=== PATIENT | male | born 1975 | race Caucasian/White ===

== ENCOUNTER 2017-03-23 19:04 | Inpatient (IN) | payer BC, MEDICARE, MEDICAID ==
[~2017-03-23] VITALS: Ht 162.6 cm; Wt 62.4 kg
[~2017-03-23 19:04] MED LIST: ACET-2178 PO; CLON0.5T4 PO; DIASTAT PO; GABA-529 PO; LACO100T2 PO; ONFI PO; ZONISAMIDE
[2017-03-23] MEDS ORDERED: ACETAMINOPHEN 650MG SUPP PR STA (19:45)
[2017-03-23] MEDS ORDERED: LEVETIRACETAM 500MG PREMIX 100 ML IV ONE ×2 (19:45→22:00)
[2017-03-23] MEDS ORDERED: VANCOMYCIN 1 G PREMIX 200 ML IV ONE (19:45)
[2017-03-23] MEDS ORDERED: SODIUM CHLORIDE 0.9% 1000ML BAG (SEPSIS BOLUS) IV ONE (19:45)
[2017-03-23] MEDS ORDERED: LEVOFLOXACIN 750MG PREMIX 150 ML IV ONE (19:45)
[2017-03-23 20:16] LABS: BG BASE EXCESS -4.8 mmol/L (-2.0-2.0); BG DEOXYHEMOGLOBIN 1.8 % (0.0-5.0); BG FRACTION INSPIRED OXYGEN 28; BG HCO3 ACT 20.8 mmol/L (22.0-26.0); BG METHEMOGLOBIN 0.5 % (0.0-1.5); BG OXYGEN SATURATION 98.2 % (92.0-98.5); BG OXYHEMOGLOBIN 96.7 % (94.0-97.0); BG PCO2 40.3 mmHg (35.0-45.0); BG PO2 106.6 mmHg (75.0-100.0); BG SAMPLE SITE LEFT RADIAL; BG TOTAL HEMOGLOBIN 15.9 g/dL (12.0-18.0); BG VENT MODE NASAL CANNULA
[2017-03-23 20:23] LABS: HEMATOCRIT. 45.4 % (42.0-52.0); HEMOGLOBIN. 15.1 g/dL (14.0-18.0); MEAN CORPUSCULAR HEMOGLOBIN 28.1 pg (28.0-32.0); MEAN CORPUSCULAR VOLUME 84.6 fL (80.0-94.0); MEAN PLATELET VOLUME 7.7 fl (7.4-10.4); PLATELET 354 x1000/uL (130-400); RED BLOOD CELL COUNT 5.37 mill/uL (4.7-6.1); RED CELL DISTRIBUTION WIDTH 14.1 % (11.6-14.6)
[2017-03-23 20:35] LABS: CARBON DIOXIDE 23 mEq/L (21-32); CHLORIDE 109 mEq/L (98-107); CREATINE KINASE 150 IU/L (39-308); TROPONIN I 0.06 ng/mL (0.00-0.04)
[2017-03-23 20:40] LABS: PLATELET ESTIMATE NORMAL
[2017-03-23] MEDS ORDERED: LORAZEPAM 2MG/ML CPJ IV ONE ×2 (20:45→23:15)
[2017-03-23 20:47] LABS: CARBAMAZEPINE < 0.5 ug/mL (4-12); PHENOBARBITAL < 2.1 ug/mL (15.0-40.0); VALPROIC ACID < 3.0 ug/mL (50-100)
[2017-03-23 20:57] LABS: AMMONIA 61 uMol/L (<32)
[2017-03-23 21:29] LABS: CLARITY URINE CLOUDY (CLEAR); COLOR URINE ORANGE (YELLOW); GLUCOSE URINE NEGATIVE (NEGATIVE); KETONES URINE NEGATIVE (NEGATIVE); LEUKOCYTE ESTERASE URINE 2+ (NEGATIVE); NITRITE URINE POSITIVE (NEGATIVE); OCCULT BLOOD URINE NEGATIVE (NEGATIVE); PROTEIN URINE 1+ (NEGATIVE); SPECIFIC GRAVITY URINE 1.033 (1.005-1.030)
[2017-03-24] VITALS (108 sets, daily range): BP systolic 57–137; BP diastolic 31–96
[2017-03-24] MEDS ORDERED: LORAZEPAM 2MG/ML CPJ IV PRN (01:15)
[2017-03-24] MEDS: SODIUM CHLORIDE 0.45% 1,000 ML IV SCH ×2 (01:18→13:17)
[2017-03-24] MEDS ORDERED: KEPP500 PO (01:23)
[2017-03-24] MEDS ORDERED: CALCIUM GLUCONATE 100MG/ML 10ML VIAL IV NR (01:30)
[2017-03-24] MEDS ORDERED: CEFTRIAXONE 1 G PREMIX 50 ML IV SCH (02:00)
[2017-03-24] MEDS ORDERED: NOREPINEPHRINE 8 MG in DEXT 5% WATER 242 ML IV PRN (02:00)
[2017-03-24 05:42] LABS: HEMATOCRIT 40.1 % (42.0-52.0); MEAN CORPUSCULAR HEMOGLOBIN 27.8 pg (28.0-32.0); MEAN CORPUSCULAR VOLUME 85.5 fL (80.0-94.0); PLATELET 303 x1000/uL (130-400); RED BLOOD CELL COUNT 4.69 mill/uL (4.7-6.1); RED CELL DISTRIBUTION WIDTH 14.2 % (11.6-14.6)
[2017-03-24] MEDS: LORAZEPAM 2MG/ML CPJ IV PRN ×2 (05:58→08:06)
[2017-03-24] MEDS ORDERED: VALPROATE SODIUM 500 MG in SODIUM CHLORIDE 0.9% 100 ML IV NR (06:30)
[2017-03-24 07:34] LABS: CARBON DIOXIDE 18 mEq/L (21-32); CHLORIDE 111 mEq/L (98-107)
[2017-03-24] MEDS: ACETAMINOPHEN 650MG SUPP PR PRN ×3 (08:23→11:48)
[2017-03-24] MEDS ORDERED: ACETAMINOPHEN 650MG SUPP ONE (08:52)
[2017-03-24] MEDS ORDERED: FAMOTIDINE 20MG/2ML VIAL IV SCH (09:00)
[2017-03-24] MEDS ORDERED: PANTOPRAZOLE SODIUM 40 MG/VIAL IV SCH (09:00)
[2017-03-24] MEDS ORDERED: LEVOFLOXACIN 500MG PREMIX 100 ML IV ONE (09:00)
[2017-03-24] MEDS ORDERED: LEVETIRACETAM 500MG PREMIX 100 ML IV SCH (09:00)
[2017-03-24] MEDS ORDERED: ACETAMINOPHEN 650MG SUPP PR NR (10:54)
[2017-03-24] MEDS ORDERED: ACETAMINOPHEN 325MG TABLET PO PRN (15:45)
[2017-03-24] MEDS: LEVOFLOXACIN 250MG PREMIX 50 ML IV SCH (20:35)
[2017-03-24] MEDS ORDERED: LEVETIRACETAM 500MG in SODIUM CHLORIDE 0.9% 100ML IV SCH (21:00)
[2017-03-24] MEDS: FAMOTIDINE 20MG/2ML VIAL IV SCH (21:45)
[2017-03-25] VITALS (40 sets, daily range): BP systolic 91–122; BP diastolic 37–74
[2017-03-25] MEDS: CEFTRIAXONE 1 G PREMIX 50 ML IV SCH (02:52)
[2017-03-25 05:13] LABS: CARBON DIOXIDE 24 mEq/L (21-32); CHLORIDE 113 mEq/L (98-107)
[2017-03-25] MEDS: SODIUM CHLORIDE 0.45% 1,000 ML IV SCH ×2 (05:49→19:26)
[2017-03-25 06:25] LABS: BASOPHILS % 0.3 % (0.0-2.0); EOSINOPHILS % 2.2 % (0.0-5.0); HEMATOCRIT. 33.5 % (42.0-52.0); HEMOGLOBIN. 11.1 g/dL (14.0-18.0); LYMPHOCYTES % 12.3 % (20.0-50.0); MEAN CORPUSCULAR HEMOGLOBIN 28.1 pg (28.0-32.0); MEAN CORPUSCULAR VOLUME 84.9 fL (80.0-94.0); MEAN PLATELET VOLUME 7.4 fl (7.4-10.4); MONOCYTES % 8.5 % (2.0-8.0); NEUTROPHILS % 76.7 % (40.0-76.0); PLATELET 228 x1000/uL (130-400); RED BLOOD CELL COUNT 3.94 mill/uL (4.7-6.1); RED CELL DISTRIBUTION WIDTH 14.2 % (11.6-14.6)
[2017-03-25] MEDS: LEVETIRACETAM 500MG TABLET PO SCH ×2 (09:39→20:09)
[2017-03-25] MEDS: FAMOTIDINE 20MG/2ML VIAL IV SCH ×2 (09:39→20:15)
[2017-03-25] MEDS ORDERED: LEVETIRACETAM 500 MG in SODIUM CHLORIDE 0.9% 100 ML IV NR (12:00)
[2017-03-25] MEDS: POTASSIUM CHLORIDE 20MEQ/PACKET PO NR ×3 (18:45→20:08)
[2017-03-25] MEDS: LEVOFLOXACIN 250MG PREMIX 50 ML IV SCH (20:15)
[2017-03-26] VITALS (35 sets, daily range): BP systolic 91–134; BP diastolic 52–76
[2017-03-26] MEDS: CEFTRIAXONE 1 G PREMIX 50 ML IV SCH (02:09)
[2017-03-26 06:08] LABS: BASOPHILS % 0.5 % (0.0-2.0); EOSINOPHILS % 2.3 % (0.0-5.0); HEMATOCRIT. 34.4 % (42.0-52.0); HEMOGLOBIN. 11.4 g/dL (14.0-18.0); LYMPHOCYTES % 20.4 % (20.0-50.0); MEAN CORPUSCULAR HEMOGLOBIN 28.2 pg (28.0-32.0); MONOCYTES % 7.9 % (2.0-8.0); NEUTROPHILS % 68.9 % (40.0-76.0); PLATELET 234 x1000/uL (130-400); RED BLOOD CELL COUNT 4.04 mill/uL (4.7-6.1)
[2017-03-26 06:26] LABS: CARBON DIOXIDE 25 mEq/L (21-32); CHLORIDE 112 mEq/L (98-107)
[2017-03-26] MEDS: LEVETIRACETAM 500MG TABLET PO SCH ×2 (08:15→20:20)
[2017-03-26] MEDS: FAMOTIDINE 20MG/2ML VIAL IV SCH ×2 (08:15→20:20)
[2017-03-26] MEDS: SODIUM CHLORIDE 0.45% 1,000 ML IV SCH (10:12)
[2017-03-26] MEDS ORDERED: DEXT 5%/0.45% NACL 1000ML 1,000 ML IV SCH (15:45)
[2017-03-26] MEDS ORDERED: THIAMINE HCL 100 MG in SODIUM CHLORIDE 0.9% 49 ML IV NR (16:00)
[2017-03-26] MEDS: ONFI 10 MG PO SCH (16:58)
[2017-03-26] MEDS ORDERED: LEVOFLOXACIN 500MG PREMIX 100 ML IV SCH (20:00)
[2017-03-27] VITALS (9 sets, daily range): BP systolic 107–124; BP diastolic 52–117
[2017-03-27 06:50] LABS: BASOPHILS % 0.6 % (0.0-2.0); EOSINOPHILS % 2.5 % (0.0-5.0); HEMATOCRIT. 37.6 % (42.0-52.0); HEMOGLOBIN. 12.4 g/dL (14.0-18.0); LYMPHOCYTES % 21.5 % (20.0-50.0); MEAN CORPUSCULAR HEMOGLOBIN 27.8 pg (28.0-32.0); MEAN CORPUSCULAR VOLUME 84.1 fL (80.0-94.0); MEAN PLATELET VOLUME 7.8 fl (7.4-10.4); MONOCYTES % 7.1 % (2.0-8.0); NEUTROPHILS % 68.3 % (40.0-76.0); PLATELET 284 x1000/uL (130-400); RED BLOOD CELL COUNT 4.47 mill/uL (4.7-6.1); RED CELL DISTRIBUTION WIDTH 13.5 % (11.6-14.6)
[2017-03-27 07:09] LABS: CARBON DIOXIDE 23 mEq/L (21-32); CHLORIDE 111 mEq/L (98-107)
[2017-03-27] MEDS: FAMOTIDINE 20MG/2ML VIAL IV SCH (09:23)
[2017-03-27] MEDS: LEVETIRACETAM 500MG TABLET PO SCH (09:23)
[2017-03-27] MEDS: ONFI 10 MG PO SCH (09:26)
[2017-03-27] MEDS ORDERED: POTASSIUM CHLORIDE 10MEQ TABLET SR PO SCH (11:45)
== END 2017-03-27 13:34 | disposition home or self-care (01) | DRG 871 ==
LOC: ER 19:15 → EDBEDREQSVC 19:57 → EDBEDREQ 19:57 → MICUNO 21:49 → EDBEDREQ 21:56 → EDBEDREQSVC 21:56 → ENRESERV 22:03 → 5EST 03-26 17:10
PROVIDERS: ADMIT Internal Medicine Nephrology; ATTEND Internal Medicine Nephrology
DX: A41.9 Sepsis, unspecified organism (principal); G93.41 Metabolic encephalopathy; J96.00 Acute respiratory failure, unspecified whether with hypoxia or hypercapnia; N17.9 Acute kidney failure, unspecified; G40.919 Epilepsy, unspecified, intractable, without status epilepticus; E44.0 Moderate protein-calorie malnutrition; F72 Severe intellectual disabilities; N39.0 Urinary tract infection, site not specified; F03.90 Unspecified dementia, unspecified severity, without behavioral disturbance, psychotic disturbance, mood disturbance, and anxiety; L89.90 Pressure ulcer of unspecified site, unspecified stage; E86.0 Dehydration; K59.00 Constipation, unspecified; M41.9 Scoliosis, unspecified; R62.7 Adult failure to thrive; Z74.01 Bed confinement status; Z88.0 Allergy status to penicillin; Z68.23 Body mass index [BMI] 23.0-23.9, adult
CPT/HCPCS: 36415; 36600; 70450; 71010; 80053; 80156; 80165; 80184; 80185; 81001; 82140; 82375; 82550; 82805; 83605; 83880; 84443; 84484; 85025; 85027; 85610; 87040; 87086; 87493; 93005; 93970; 96365; 96366; 96375; 99291; A6261; J0610; J0696; J1953; J1956; J2060; J3370; J3411; J3490; J7030; J7040; J7050; J7060; A4315

== ENCOUNTER 2017-07-04 13:07 | Inpatient (IN) | payer BC, MEDICARE, MEDICAID ==
[~2017-07-04] VITALS: Ht 175.3 cm; Wt 61.7 kg
[~2017-07-04 13:07] MED LIST changes: +KEPP500 PO
[2017-07-04] MEDS ORDERED: SODIUM CHLORIDE 0.9% 1,000 ML IV ONE ×3 (15:16→19:15)
[2017-07-04] MEDS ORDERED: GABAPENTIN 300MG CAPSULE PO ONE (15:30)
[2017-07-04 15:53] LABS: BASOPHILS % 0.7 % (0.0-2.0); EOSINOPHILS % 2.9 % (0.0-5.0); HEMATOCRIT. 41.6 % (42.0-52.0); LYMPHOCYTES % 37.4 % (20.0-50.0); MEAN CORPUSCULAR HEMOGLOBIN 29.4 pg (28.0-32.0); MEAN CORPUSCULAR VOLUME 87.4 fL (80.0-94.0); MEAN PLATELET VOLUME 7.4 fl (7.4-10.4); MONOCYTES % 7.7 % (2.0-8.0); NEUTROPHILS % 51.3 % (40.0-76.0); PLATELET 269 x1000/uL (130-400); RED BLOOD CELL COUNT 4.76 mill/uL (4.7-6.1); RED CELL DISTRIBUTION WIDTH 15.8 % (11.6-14.6)
[2017-07-04 15:58] LABS: CHLORIDE 109 mEq/L (98-107)
[2017-07-04 16:00] LABS: PROTHROMBIN TIME 10.7 sec (9.4-11.6)
[2017-07-04 16:09] LABS: CARBON DIOXIDE 22 mEq/L (21-32)
[2017-07-04] MEDS ORDERED: KCL 20MEQ/100ML PREMIX 100 ML IV ONE (17:30)
[2017-07-04] MEDS: KCL 10MEQ/50ML PREMIX 50 ML IV ONE ×2 (18:26→18:33)
[2017-07-04] MEDS ORDERED: SODIUM CHLORIDE 0.9% 1,000 ML IV SCH (20:32)
[2017-07-04] MEDS ORDERED: ACETAMINOPHEN 325MG TABLET PO PRN (21:30)
[2017-07-04] MEDS ORDERED: DIPHENHYDRAMINE 50MG/ML VIAL IV PRN (21:30)
[2017-07-04] MEDS ORDERED: ONDANSETRON HCL 4MG/2ML VIAL IV PRN (21:30)
[2017-07-04] MEDS ORDERED: HALOPERIDOL LACTATE 5MG/ML VIAL IM PRN (21:30)
[2017-07-04] MEDS ORDERED: CLONIDINE 0.1MG TABLET PO PRN (21:30)
[2017-07-04] MEDS ORDERED: DOCUSATE SODIUM 100MG CAPSULE PO PRN (21:30)
[2017-07-04] MEDS ORDERED: GUAIFENESIN 200MG/10ML SUGAR FREE UDC PO PRN (21:30)
[2017-07-04] MEDS ORDERED: NA PHOS,M-B/NA PHOS,DI-BA ENEMA 118ML PR PRN (21:30)
[2017-07-04] MEDS ORDERED: LEVOFLOXACIN 500MG PREMIX 100 ML IV SCH (21:30)
[2017-07-04] MEDS ORDERED: LORAZEPAM 0.5MG TABLET PO PRN (21:30)
[2017-07-04] MEDS ORDERED: IPRATROPIUM/ALBUTEROL 0.5-3(2.5)MG/3ML NEB INH PRN (21:30)
[2017-07-04] MEDS ORDERED: MAGNESIUM/ALUMINUM HYDROXIDE/SIMETHICONE 30ML UDC PO PRN (21:30)
[2017-07-04] MEDS ORDERED: ZOLPIDEM TARTRATE 5MG TABLET PO PRN (21:30)
[2017-07-04 21:58] LABS: T4 FREE 1.03 ng/dL (0.76-1.46)
[2017-07-04 22:14] LABS: VITAMIN B12 SERUM 414 pg/mL (211-911)
[2017-07-04 23:06] LABS: CREATINE KINASE 113 IU/L (39-308); CREATINE KINASE MB FRACTION 3.6 ng/mL (0.5-3.6); TROPONIN I < 0.02 ng/mL (0.00-0.04)
[2017-07-04 23:10] LABS: FOLIC ACID (FOLATE) SERUM > 20.00 ng/mL (>5.38)
[2017-07-04 23:28] LABS: CLARITY URINE CLEAR (CLEAR); COLOR URINE YELLOW (YELLOW); GLUCOSE URINE NEGATIVE (NEGATIVE); KETONES URINE NEGATIVE (NEGATIVE); LEUKOCYTE ESTERASE URINE NEGATIVE (NEGATIVE); NITRITE URINE NEGATIVE (NEGATIVE); OCCULT BLOOD URINE NEGATIVE (NEGATIVE); PROTEIN URINE NEGATIVE (NEGATIVE); SPECIFIC GRAVITY URINE 1.021 (1.005-1.030); UROBILINOGEN URINE 0.2 E.U./dL (0.2-1.0)
[2017-07-04 23:56] LABS: *AMPHETAMINES SCREEN URINE NEGATIVE (NEGATIVE); *BARBITURATES SCREEN URINE NEGATIVE (NEGATIVE); *BENZODIAZEPINES SCREEN URINE PRESUMTIVE POSITIVE (NEGATIVE); *COCAINE SCREEN URINE NEGATIVE (NEGATIVE); CANNABINOID URINE SCREEN NEGATIVE (NEGATIVE); METHADONE URINE SCREEN NEGATIVE (NEGATIVE); OPIATES URINE SCREEN NEGATIVE (NEGATIVE); PHENCYCLIDINE URINE SCREEN NEGATIVE (NEGATIVE)
[2017-07-05 04:00] VITALS: BP 108/64
[2017-07-05] MEDS ORDERED: POTASSIUM CHLORIDE INJ 20 MEQ in SODIUM CHLORIDE 0.9% 90 ML IV NR (05:00)
[2017-07-05] MEDS: SODIUM CHLORIDE 0.9% 1,000 ML IV SCH ×2 (05:11→15:00)
[2017-07-05] MEDS ORDERED: BRIV50TA PO (05:51)
[2017-07-05] MEDS ORDERED: CEFTRIAXONE 1 G PREMIX 50 ML IV SCH (06:00)
[2017-07-05 08:00] VITALS: BP 142/74
[2017-07-05] MEDS: LEVOFLOXACIN 500MG PREMIX 100 ML IV SCH (08:35)
[2017-07-05] MEDS: FAMOTIDINE 20MG/2ML VIAL IV SCH ×2 (08:35→22:33)
[2017-07-05] MEDS: LEVETIRACETAM 500MG TABLET PO SCH ×2 (08:36→22:01)
[2017-07-05] MEDS ORDERED: ONFI 10 MG PO SCH (09:33)
[2017-07-05] MEDS: ONFI 10 MG PO SCH ×2 (09:48→18:35)
[2017-07-05 09:53] LABS: CREATINE KINASE 96 IU/L (39-308); TROPONIN I < 0.02 ng/mL (0.00-0.04)
[2017-07-05 12:00] VITALS: BP 98/55
[2017-07-05 12:08] LABS: CARBON DIOXIDE 21 mEq/L (21-32); CHLORIDE 111 mEq/L (98-107)
[2017-07-05 16:00] VITALS: BP 98/50
[2017-07-05] MEDS ORDERED: MENT3.5O TP (16:35)
[2017-07-05] MEDS ORDERED: FERR325T6 PO (16:35)
[2017-07-05] MEDS ORDERED: ZONI100C45 PO (16:35)
[2017-07-05] MEDS ORDERED: OMEG-134 PO (16:35)
[2017-07-05] MEDS ORDERED: D-ME473S8 PO (16:35)
[2017-07-05] MEDS ORDERED: LACT1CAP77 PO (16:35)
[2017-07-05] MEDS ORDERED: CYAN10009 PO (16:35)
[2017-07-05] MEDS ORDERED: LACT10SO6 PO (16:35)
[2017-07-05] MEDS ORDERED: GABA-531 PO (16:37)
[2017-07-05] MEDS ORDERED: CLONAZEPAM 1MG TABLET PO PRN (16:45)
[2017-07-05] MEDS ORDERED: ACETAMINOPHEN 325MG TABLET PO SCH (17:15)
[2017-07-05] MEDS ORDERED: PROMETHAZINE/DEXTROMETHORPHAN 6.25-15MG/5ML BOTTLE 120ML PO PRN (17:15)
[2017-07-05 20:00] VITALS: BP 106/51
[2017-07-05] MEDS: GABAPENTIN 300MG CAPSULE PO SCH (22:01)
[2017-07-06] VITALS: BP 102/50
[2017-07-06] MEDS: SODIUM CHLORIDE 0.9% 1,000 ML IV SCH ×3 (01:00→22:33)
[2017-07-06] MEDS: GABAPENTIN 300MG CAPSULE PO SCH ×3 (06:45→22:05)
[2017-07-06 08:00] VITALS: BP 103/64
[2017-07-06] MEDS: LEVETIRACETAM 500MG TABLET PO SCH (09:00)
[2017-07-06] MEDS: CYANOCOBALAMIN 1000MCG TABLET PO SCH (09:00)
[2017-07-06] MEDS: ZONISAMIDE 100MG CAPSULE PO SCH ×2 (10:31→16:50)
[2017-07-06] MEDS: FAMOTIDINE 20MG/2ML VIAL IV SCH ×2 (10:31→22:32)
[2017-07-06] MEDS: LACTOBACILLUS GG CAPSULE PO SCH (10:31)
[2017-07-06] MEDS: CEFTRIAXONE 1 G PREMIX 50 ML IV SCH (10:32)
[2017-07-06] MEDS: LEVOFLOXACIN 500MG PREMIX 100 ML IV SCH (10:32)
[2017-07-06 16:00] VITALS: BP 99/63
[2017-07-06] MEDS: ONFI 10 MG PO SCH (16:49)
[2017-07-06 20:00] VITALS: BP 119/97
[2017-07-07 04:00] VITALS: BP 94/53
[2017-07-07] MEDS: ONFI 10 MG PO SCH (06:57)
[2017-07-07] MEDS: GABAPENTIN 300MG CAPSULE PO SCH (06:57)
[2017-07-07 08:00] VITALS: BP 94/54
[2017-07-07] MEDS: SODIUM CHLORIDE 0.9% 1,000 ML IV SCH (09:13)
[2017-07-07] MEDS: FAMOTIDINE 20MG/2ML VIAL IV SCH (09:13)
[2017-07-07] MEDS: ZONISAMIDE 100MG CAPSULE PO SCH (09:14)
[2017-07-07] MEDS: CEFTRIAXONE 1 G PREMIX 50 ML IV SCH (09:14)
[2017-07-07] MEDS: LACTOBACILLUS GG CAPSULE PO SCH (09:14)
[2017-07-07] MEDS: CYANOCOBALAMIN 1000MCG TABLET PO SCH (09:14)
[2017-07-07] MEDS ORDERED: LEVOFLOXACIN 500MG TABLET PO SCH (11:00)
[2017-07-07 12:00] VITALS: BP 103/58
[2017-07-07 13:04] VITALS: BP 103/58
== END 2017-07-07 14:05 | disposition home or self-care (01) | DRG 640 ==
LOC: ER 13:41 → 6EST 20:33 → SUPCPDRO 21:45 → ENRESERV 07-05 02:51
PROVIDERS: ADMIT Internal Medicine; ATTEND Internal Medicine
DX: E87.6 Hypokalemia (principal); G93.40 Encephalopathy, unspecified; E86.0 Dehydration; G40.909 Epilepsy, unspecified, not intractable, without status epilepticus; R62.50 Unspecified lack of expected normal physiological development in childhood; Z88.0 Allergy status to penicillin
CPT/HCPCS: 36415; 51702; 80048; 80053; 80061; 80305; 81003; 82550; 82553; 82607; 82746; 83036; 83540; 83550; 83605; 84439; 84443; 84484; 85025; 85610; 87040; 87086; 93971; 96361; 96365; 96366; 99285; J0696; J1956; J3480; J3490; J7030; J7050; A4315

== ENCOUNTER 2018-09-30 12:24 | Emergency (ER) | payer BC, MEDICAID ==
[~2018-09-30] VITALS: Ht 170.2 cm; Wt 75.0 kg
[~2018-09-30 12:24] MED LIST changes: +BRIV50TA PO; +CLON0.5T12 PO; -CLON0.5T4 PO; +CYAN10009 PO; +D-ME473S8 PO; +FERR325T6 PO; +GABA-531 PO; -KEPP500 PO; +LACT10SO6 PO; +LACT1CAP77 PO; +MENT3.5O TP; +OMEG-134 PO; +ZONI100C45 PO; -ZONISAMIDE
[2018-09-30] MEDS ORDERED: SODIUM CHLORIDE 0.9% 1,000 ML IV ONE (12:49)
[2018-09-30] MEDS ORDERED: LEVETIRACETAM 1000MG/100ML 100 ML IV ONE (13:00)
[2018-09-30 13:14] LABS: BASOPHILS % 0.7 % (0.0-2.0); EOSINOPHILS % 4.2 % (0.0-5.0); HEMATOCRIT. 39.4 % (42.0-52.0); HEMOGLOBIN. 13.4 g/dL (14.0-18.0); LYMPHOCYTES % 26.1 % (20.0-50.0); MEAN CORPUSCULAR HEMOGLOBIN 28.5 pg (28.0-32.0); MEAN CORPUSCULAR VOLUME 83.8 fL (80.0-94.0); MEAN PLATELET VOLUME 7.5 fl (7.4-10.4); MONOCYTES % 11.2 % (2.0-8.0); NEUTROPHILS % 57.8 % (40.0-76.0); PLATELET 255 x1000/uL (130-400); RED CELL DISTRIBUTION WIDTH 13.7 % (11.6-14.6)
[2018-09-30 13:17] LABS: CHLORIDE 111 mEq/L (98-107)
[2018-09-30 13:21] LABS: ETHANOL BLOOD < 10 mg/dL
[2018-09-30 13:24] LABS: CLARITY URINE CLEAR (CLEAR); COLOR URINE YELLOW (YELLOW); KETONES URINE TRACE (NEGATIVE); LEUKOCYTE ESTERASE URINE NEGATIVE (NEGATIVE); NITRITE URINE NEGATIVE (NEGATIVE); OCCULT BLOOD URINE NEGATIVE (NEGATIVE); PROTEIN URINE 1+ (NEGATIVE); SPECIFIC GRAVITY URINE 1.019 (1.005-1.030); UROBILINOGEN URINE 0.2 E.U./dL (0.2-1.0)
[2018-09-30 13:56] LABS: *AMPHETAMINES SCREEN URINE NEGATIVE (NEGATIVE); *BARBITURATES SCREEN URINE NEGATIVE (NEGATIVE)
[2018-09-30 13:57] LABS: *BENZODIAZEPINES SCREEN URINE PRESUMTIVE POSITIVE (NEGATIVE); *COCAINE SCREEN URINE NEGATIVE (NEGATIVE); CANNABINOID URINE SCREEN NEGATIVE (NEGATIVE); METHADONE URINE SCREEN NEGATIVE (NEGATIVE); OPIATES URINE SCREEN NEGATIVE (NEGATIVE); PHENCYCLIDINE URINE SCREEN NEGATIVE (NEGATIVE)
[2018-09-30 16:21] VITALS: BP 105/64
== END 2018-09-30 16:24 | disposition home or self-care (01) ==
LOC: ER 12:24
DX: G40.909 Epilepsy, unspecified, not intractable, without status epilepticus (principal); F79 Unspecified intellectual disabilities; F84.0 Autistic disorder; Z88.0 Allergy status to penicillin
CPT/HCPCS: 36415; 80053; 80305; 80320; 81003; 85025; 96365; 96366; 99283; J1953; J7030; G0480

== ENCOUNTER 2020-07-05 00:27 | Inpatient (IN) | payer BC, MEDICARE, MEDICAID ==
[~2020-07-05] VITALS: Ht 165.1 cm; Wt 90.7 kg
[~2020-07-05 00:27] MED LIST changes: -ACET-2178 PO; -CLON0.5T12 PO; +CLON0.5T4 PO; +CYAN-50 PO; -CYAN10009 PO; -GABA-531 PO; +GABA-532 PO; +TOPUD PO
[2020-07-05] MEDS ORDERED: ONDANSETRON HCL 4MG/2ML INJ IV STA (01:08)
[2020-07-05] MEDS ORDERED: CEFTRIAXONE 1 G PREMIX 50 ML IV ONE (01:15)
[2020-07-05] MEDS ORDERED: LEVETIRACETAM 500MG PREMIX 100 ML IV ONE (01:15)
[2020-07-05] MEDS ORDERED: LORAZEPAM 2MG/ML CPJ IV ONE (01:15)
[2020-07-05] MEDS ORDERED: VANCOMYCIN 1 G PREMIX 200 ML IV ONE (01:15)
[2020-07-05 01:53] LABS: HEMATOCRIT. 45.3 % (42.0-52.0); HEMOGLOBIN. 15.7 g/dL (14.0-18.0); MEAN CORPUSCULAR HEMOGLOBIN 31.6 pg (28.0-32.0); MEAN CORPUSCULAR VOLUME 91.1 fL (80.0-94.0); PLATELET 210 x1000/uL (130-400); RED BLOOD CELL COUNT 4.97 mill/uL (4.7-6.1); RED CELL DISTRIBUTION WIDTH 13.3 % (11.6-14.6)
[2020-07-05 02:01] LABS: CHLORIDE 108 mEq/L (98-107)
[2020-07-05 02:12] LABS: BG BASE EXCESS -3.1 mmol/L (-2.0-2.0); BG CARBOXYHEMOGLOBIN 0.8 % (0.5-1.5); BG DEOXYHEMOGLOBIN 2.5 % (0.0-5.0); BG FRACTION INSPIRED OXYGEN 32; BG HCO3 ACT 20.1 mmol/L (22.0-26.0); BG METHEMOGLOBIN 0.3 % (0.0-1.5); BG OXYGEN SATURATION 97.5 % (92.0-98.5); BG OXYHEMOGLOBIN 96.4 % (94.0-97.0); BG PCO2 31.6 mmHg (35.0-45.0); BG PH 7.422 (7.350-7.450); BG PO2 91.6 mmHg (75.0-100.0); BG SAMPLE SITE RIGHT BRACHIAL; BG TOTAL HEMOGLOBIN 15.6 g/dL (12.0-18.0); BG VENT MODE NASAL CANNULA
[2020-07-05 02:19] LABS: PROTHROMBIN TIME 10.6 sec (9.6-11.0)
[2020-07-05] MEDS ORDERED: CEFTRIAXONE 1,000 MG in DEXTROSE 5% WATER 50 ML IV SCH (02:30)
[2020-07-05] MEDS ORDERED: SODIUM CHLORIDE 0.9% 1,000 ML IV ONE (02:30)
[2020-07-05 03:15] LABS: CLARITY URINE CLOUDY (CLEAR); COLOR URINE YELLOW (YELLOW); KETONES URINE NEGATIVE (NEGATIVE); LEUKOCYTE ESTERASE URINE TRACE (NEGATIVE); NITRITE URINE NEGATIVE (NEGATIVE); OCCULT BLOOD URINE NEGATIVE (NEGATIVE); PROTEIN URINE 1+ (NEGATIVE); SPECIFIC GRAVITY URINE 1.017 (1.005-1.030)
[2020-07-05 04:44] LABS: PLATELET ESTIMATE NORMAL
[2020-07-05] MEDS ORDERED: CLONIDINE 0.1MG TABLET PO PRN (09:30)
[2020-07-05] MEDS ORDERED: ACETAMINOPHEN 325MG TABLET PO PRN ×2 (09:30)
[2020-07-05] MEDS ORDERED: LORAZEPAM 2MG/ML CPJ IV PRN ×2 (10:00)
[2020-07-05] MEDS ORDERED: DOCUSATE SODIUM 100MG CAPSULE PO PRN (10:00)
[2020-07-05] MEDS ORDERED: ONDANSETRON HCL 4MG/2ML INJ IV PRN (10:00)
[2020-07-05] MEDS ORDERED: HYDROCODONE/ACETAMINOPHEN 5/325MG TABLET PO PRN (10:00)
[2020-07-05] MEDS: LEVOFLOXACIN 500MG PREMIX 100 ML IV SCH (13:56)
[2020-07-05] MEDS: GABAPENTIN 300MG CAPSULE PO SCH ×2 (15:31→21:49)
[2020-07-05] MEDS ORDERED: LACTULOSE 20G/30ML UDC PO PRN (17:30)
[2020-07-05] MEDS ORDERED: NON FORMULARY PATIENT HOME MED XX SCH (17:30)
[2020-07-05] MEDS: ACETAMINOPHEN 650MG SUPP PR PRN (17:54)
[2020-07-05] MEDS: ENOXAPARIN 40MG/0.4ML SYR SUBCUT SCH (18:51)
[2020-07-05] MEDS ORDERED: CLOB20TA3 PO (19:42)
[2020-07-05] MEDS ORDERED: GABA-532 PO (19:42)
[2020-07-05] MEDS ORDERED: CLOB10TA3 PO (19:42)
[2020-07-05] MEDS ORDERED: BRIV100T MT (19:42)
[2020-07-05] MEDS ORDERED: LACT10SO30 MT (19:44)
[2020-07-05] MEDS: ZONISAMIDE 100MG CAPSULE PO SCH (21:49)
[2020-07-06] MEDS: ACETAMINOPHEN 650MG SUPP PR PRN ×2 (03:47→21:20)
[2020-07-06 05:29] LABS: BASOPHILS % 0.4 % (0.0-2.0); HEMATOCRIT. 43.3 % (42.0-52.0); HEMOGLOBIN. 14.8 g/dL (14.0-18.0); LYMPHOCYTES % 10.8 % (20.0-50.0); MEAN CORPUSCULAR HEMOGLOBIN 31.4 pg (28.0-32.0); MEAN CORPUSCULAR VOLUME 91.6 fL (80.0-94.0); MEAN PLATELET VOLUME 7.6 fl (7.4-10.4); MONOCYTES % 12.1 % (2.0-8.0); NEUTROPHILS % 76.7 % (40.0-76.0); PLATELET 166 x1000/uL (130-400); RED BLOOD CELL COUNT 4.72 mill/uL (4.7-6.1); RED CELL DISTRIBUTION WIDTH 13.3 % (11.6-14.6)
[2020-07-06 05:35] LABS: CHLORIDE 108 mEq/L (98-107)
[2020-07-06] MEDS: GABAPENTIN 300MG CAPSULE PO SCH ×2 (10:00→15:31)
[2020-07-06] MEDS: ZONISAMIDE 100MG CAPSULE PO SCH (11:23)
[2020-07-06] MEDS: LEVOFLOXACIN 500MG PREMIX 100 ML IV SCH (11:35)
[2020-07-06] MEDS ORDERED: ZONISAMIDE 100MG CAPSULE PO SCH (21:00)
[2020-07-06] MEDS ORDERED: BRIVIACT (BRIVARACETAM) 50MG TABLET XX SCH (21:00)
[2020-07-06 21:25] VITALS: BP_SYST 105; BP_SYST 115; BP_DIAS 52; BP_DIAS 56
[2020-07-07] MEDS: LACOSAMIDE 100 MG TABLET PO SCH ×3 (00:43→22:52)
[2020-07-07] MEDS: DEXAMETHASONE 4MG/ML 1ML VIAL IV SCH ×2 (00:45→09:44)
[2020-07-07] MEDS: ENOXAPARIN 40MG/0.4ML SYR SUBCUT SCH ×2 (00:46→18:30)
[2020-07-07 01:09] VITALS: BP 107/56
[2020-07-07] MEDS ORDERED: FLUT15.844 BOTHNSTRLS (02:22)
[2020-07-07] MEDS ORDERED: CALC-36 PO (02:25)
[2020-07-07] MEDS ORDERED: *PATIENT'S OWN MEDICATION STORAGE XX SCH (02:30)
[2020-07-07] MEDS ORDERED: FURO20TA4 MT (02:32)
[2020-07-07] MEDS ORDERED: SODI51CR MT (02:32)
[2020-07-07 04:00] VITALS: BP 109/59
[2020-07-07] MEDS ORDERED: ONFI 10 MG PO SCH (09:00)
[2020-07-07] MEDS: GABAPENTIN 300MG CAPSULE PO SCH ×3 (09:44→17:00)
[2020-07-07 12:00] VITALS: BP 95/56
[2020-07-07] MEDS: LEVOFLOXACIN 500MG PREMIX 100 ML IV SCH (12:10)
[2020-07-07] MEDS: SODIUM CHLORIDE 0.9% 1,000 ML IV SCH (16:43)
[2020-07-07 20:00] VITALS: BP 105/60
[2020-07-07] MEDS: ZONISAMIDE 10 MG/ML PEG SCH (22:52)
[2020-07-08] VITALS: BP 111/64
[2020-07-08 04:00] VITALS: BP 131/59
[2020-07-08] MEDS: SODIUM CHLORIDE 0.9% 1,000 ML IV SCH ×2 (04:59→21:02)
[2020-07-08 08:57] VITALS: BP 109/60
[2020-07-08] MEDS: DEXAMETHASONE 4MG/ML 1ML VIAL IV SCH (09:52)
[2020-07-08] MEDS: LACOSAMIDE 100 MG TABLET PO SCH (09:53)
[2020-07-08] MEDS: LEVOFLOXACIN 500MG PREMIX 100 ML IV SCH (11:33)
[2020-07-08 11:41] VITALS: BP 106/59
[2020-07-08 16:23] VITALS: BP 92/50
[2020-07-08] MEDS: GABAPENTIN 300MG CAPSULE PO SCH (17:00)
[2020-07-08] MEDS: ENOXAPARIN 40MG/0.4ML SYR SUBCUT SCH (18:30)
[2020-07-08] MEDS: ACETAMINOPHEN 650MG SUPP PR PRN (18:41)
[2020-07-08 20:00] VITALS: BP 89/49
[2020-07-08] MEDS: ZONISAMIDE 10 MG/ML PEG SCH (21:02)
[2020-07-09] VITALS: BP 91/57
[2020-07-09] MEDS: LACOSAMIDE 100 MG TABLET PO SCH ×3 (01:08→22:00)
[2020-07-09 04:00] VITALS: BP 105/50
[2020-07-09] MEDS: ACETAMINOPHEN 650MG SUPP PR PRN ×2 (05:16→16:49)
[2020-07-09] MEDS: SODIUM CHLORIDE 0.9% 1,000 ML IV SCH ×2 (06:41→22:01)
[2020-07-09 06:46] LABS: BASOPHILS % 0.2 % (0.0-2.0); HEMATOCRIT. 43.5 % (42.0-52.0); HEMOGLOBIN. 14.9 g/dL (14.0-18.0); LYMPHOCYTES % 36.4 % (20.0-50.0); MEAN CORPUSCULAR HEMOGLOBIN 31.3 pg (28.0-32.0); MEAN CORPUSCULAR VOLUME 91.5 fL (80.0-94.0); MEAN PLATELET VOLUME 7.9 fl (7.4-10.4); MONOCYTES % 9.7 % (2.0-8.0); NEUTROPHILS % 53.7 % (40.0-76.0); PLATELET 122 x1000/uL (130-400); RED BLOOD CELL COUNT 4.76 mill/uL (4.7-6.1); RED CELL DISTRIBUTION WIDTH 13.1 % (11.6-14.6)
[2020-07-09 07:10] LABS: CHLORIDE 114 mEq/L (98-107)
[2020-07-09 08:04] VITALS: BP 115/64
[2020-07-09] MEDS: DEXAMETHASONE 4MG/ML 1ML VIAL IV SCH (09:07)
[2020-07-09] MEDS: GABAPENTIN 300MG CAPSULE PO SCH ×4 (09:07→17:50)
[2020-07-09 12:08] VITALS: BP 105/48
[2020-07-09] MEDS: LEVOFLOXACIN 500MG PREMIX 100 ML IV SCH (13:46)
[2020-07-09 16:06] VITALS: BP 99/48
[2020-07-09] MEDS: ENOXAPARIN 40MG/0.4ML SYR SUBCUT SCH (17:51)
[2020-07-09 20:00] VITALS: BP 100/50
[2020-07-09] MEDS: ZONISAMIDE 10 MG/ML PEG SCH (22:00)
[2020-07-10] VITALS: BP 123/45
[2020-07-10 04:00] VITALS: BP 104/56
[2020-07-10 08:00] VITALS: BP 99/55
[2020-07-10] MEDS: DEXAMETHASONE 4MG/ML 1ML VIAL IV SCH (08:45)
[2020-07-10] MEDS: GABAPENTIN 300MG CAPSULE PO SCH ×2 (08:45→13:00)
[2020-07-10] MEDS: LACOSAMIDE 100 MG TABLET PO SCH ×2 (08:45→21:24)
[2020-07-10] MEDS: SODIUM CHLORIDE 0.9% 1,000 ML IV SCH (09:06)
[2020-07-10] MEDS: LEVOFLOXACIN 500MG PREMIX 100 ML IV SCH (10:45)
[2020-07-10] MEDS: ACETAMINOPHEN 650MG SUPP PR PRN (10:46)
[2020-07-10 12:00] VITALS: BP 145/91
[2020-07-10 12:41] LABS: BASOPHILS % 0.2 % (0.0-2.0); HEMATOCRIT. 41.5 % (42.0-52.0); HEMOGLOBIN. 14.3 g/dL (14.0-18.0); LYMPHOCYTES % 13.1 % (20.0-50.0); MEAN CORPUSCULAR HEMOGLOBIN 31.3 pg (28.0-32.0); MEAN CORPUSCULAR VOLUME 90.4 fL (80.0-94.0); MEAN PLATELET VOLUME 8.2 fl (7.4-10.4); MONOCYTES % 7.4 % (2.0-8.0); NEUTROPHILS % 79.3 % (40.0-76.0); PLATELET 126 x1000/uL (130-400); RED BLOOD CELL COUNT 4.59 mill/uL (4.7-6.1)
[2020-07-10 12:44] LABS: CHLORIDE 114 mEq/L (98-107)
[2020-07-10 16:00] VITALS: BP 99/56
[2020-07-10 20:00] VITALS: BP 100/60
[2020-07-10] MEDS: ZONISAMIDE 10 MG/ML PEG SCH (21:24)
[2020-07-11] VITALS: BP 102/70
[2020-07-11 04:00] VITALS: BP 101/66
[2020-07-11 08:00] VITALS: BP 105/61
[2020-07-11 09:49] LABS: BASOPHILS % 0.2 % (0.0-2.0); HEMATOCRIT. 42.6 % (42.0-52.0); HEMOGLOBIN. 14.5 g/dL (14.0-18.0); LYMPHOCYTES % 34.8 % (20.0-50.0); MEAN CORPUSCULAR HEMOGLOBIN 30.6 pg (28.0-32.0); MEAN CORPUSCULAR VOLUME 90.2 fL (80.0-94.0); MONOCYTES % 8.9 % (2.0-8.0); NEUTROPHILS % 56.1 % (40.0-76.0); PLATELET 115 x1000/uL (130-400); RED BLOOD CELL COUNT 4.73 mill/uL (4.7-6.1); RED CELL DISTRIBUTION WIDTH 13.2 % (11.6-14.6)
[2020-07-11 09:54] LABS: CHLORIDE 115 mEq/L (98-107)
[2020-07-11] MEDS: LACOSAMIDE 100 MG TABLET PO SCH ×2 (11:14→22:09)
[2020-07-11] MEDS: GABAPENTIN 300MG CAPSULE PO SCH ×3 (11:14→17:46)
[2020-07-11] MEDS: DEXAMETHASONE 4MG/ML 1ML VIAL IV SCH (11:15)
[2020-07-11] MEDS: LEVOFLOXACIN 500MG PREMIX 100 ML IV SCH (11:16)
[2020-07-11 12:00] VITALS: BP 99/53
[2020-07-11] MEDS: SODIUM CHLORIDE 0.9% 1,000 ML IV SCH (14:14)
[2020-07-11 16:00] VITALS: BP_SYST 105; BP_DIAS 52; BP_DIAS 61
[2020-07-11] MEDS: ENOXAPARIN 40MG/0.4ML SYR SUBCUT SCH (17:47)
[2020-07-11 20:00] VITALS: BP 100/70
[2020-07-11] MEDS: ZONISAMIDE 10 MG/ML PEG SCH (22:09)
[2020-07-12] VITALS: BP 102/68
[2020-07-12 04:00] VITALS: BP 105/55
[2020-07-12 08:00] VITALS: BP 90/51
[2020-07-12] MEDS: ACETAMINOPHEN 325MG TABLET PO PRN (08:36)
[2020-07-12] MEDS: LACOSAMIDE 100 MG TABLET PO SCH ×2 (08:36→22:09)
[2020-07-12] MEDS: GABAPENTIN 300MG CAPSULE PO SCH ×3 (08:36→17:41)
[2020-07-12] MEDS: DEXAMETHASONE 4MG/ML 1ML VIAL IV SCH (08:36)
[2020-07-12 09:45] LABS: BASOPHILS % 0.1 % (0.0-2.0); HEMATOCRIT. 42.7 % (42.0-52.0); HEMOGLOBIN. 14.8 g/dL (14.0-18.0); LYMPHOCYTES % 27.1 % (20.0-50.0); MEAN CORPUSCULAR HEMOGLOBIN 31.1 pg (28.0-32.0); MEAN PLATELET VOLUME 8.3 fl (7.4-10.4); MONOCYTES % 7.8 % (2.0-8.0); PLATELET 128 x1000/uL (130-400); RED BLOOD CELL COUNT 4.74 mill/uL (4.7-6.1); RED CELL DISTRIBUTION WIDTH 13.3 % (11.6-14.6)
[2020-07-12 10:01] LABS: CHLORIDE 113 mEq/L (98-107)
[2020-07-12] MEDS: LEVOFLOXACIN 500MG PREMIX 100 ML IV SCH (11:39)
[2020-07-12 12:00] VITALS: BP 100/50
[2020-07-12] MEDS: SODIUM CHLORIDE 0.9% 1,000 ML IV SCH (15:15)
[2020-07-12 16:00] VITALS: BP 100/52
[2020-07-12] MEDS: ENOXAPARIN 40MG/0.4ML SYR SUBCUT SCH (17:42)
[2020-07-12 20:00] VITALS: BP 104/66
[2020-07-12] MEDS: ZONISAMIDE 10 MG/ML PEG SCH (22:04)
[2020-07-13] VITALS: BP 100/52
[2020-07-13] MEDS: ACETAMINOPHEN 325MG TABLET PO PRN (00:58)
[2020-07-13 04:00] VITALS: BP 104/60
[2020-07-13] MEDS: ACETAMINOPHEN 650MG SUPP PR PRN ×2 (06:48→22:36)
[2020-07-13 08:00] VITALS: BP 100/60
[2020-07-13] MEDS: GABAPENTIN 300MG CAPSULE PO SCH ×4 (09:00→18:19)
[2020-07-13] MEDS: DEXAMETHASONE 4MG/ML 1ML VIAL IV SCH (11:03)
[2020-07-13] MEDS: LACOSAMIDE 100 MG TABLET PO SCH ×2 (11:03→21:00)
[2020-07-13] MEDS: LEVOFLOXACIN 500MG PREMIX 100 ML IV SCH (11:06)
[2020-07-13] MEDS: SODIUM CHLORIDE 0.9% 1,000 ML IV SCH ×2 (11:19→18:21)
[2020-07-13 12:00] VITALS: BP 102/48
[2020-07-13 16:00] VITALS: BP 103/50
[2020-07-13] MEDS: ENOXAPARIN 40MG/0.4ML SYR SUBCUT SCH (18:19)
[2020-07-13 20:00] VITALS: BP 98/57
[2020-07-13] MEDS: ZONISAMIDE 10 MG/ML PEG SCH (21:00)
[2020-07-14] VITALS: BP 104/59
[2020-07-14 04:00] VITALS: BP 111/65
[2020-07-14] MEDS: SODIUM CHLORIDE 0.9% 1,000 ML IV SCH ×2 (07:45→22:33)
[2020-07-14 08:00] VITALS: BP 103/53
[2020-07-14] MEDS: GABAPENTIN 300MG CAPSULE PO SCH ×3 (09:00→18:50)
[2020-07-14] MEDS: LACOSAMIDE 100 MG TABLET PO SCH ×2 (09:00→22:34)
[2020-07-14] MEDS: DEXAMETHASONE 4MG/ML 1ML VIAL IV SCH (09:00)
[2020-07-14] MEDS: ACETAMINOPHEN 650MG SUPP PR PRN ×2 (10:38→15:03)
[2020-07-14 12:00] VITALS: BP 93/47
[2020-07-14 16:00] VITALS: BP 91/50
[2020-07-14] MEDS: ENOXAPARIN 40MG/0.4ML SYR SUBCUT SCH (18:50)
[2020-07-14 20:00] VITALS: BP 99/62
[2020-07-14] MEDS: ZONISAMIDE 10 MG/ML PEG SCH (22:33)
[2020-07-15] VITALS (14 sets, daily range): BP systolic 64–97; BP diastolic 27–65
[2020-07-15] MEDS: ACETAMINOPHEN 650MG SUPP PR PRN (04:48)
[2020-07-15] MEDS: DEXAMETHASONE 4MG/ML 1ML VIAL IV SCH (08:47)
[2020-07-15] MEDS: LACOSAMIDE 100 MG TABLET PO SCH ×2 (08:47→19:51)
[2020-07-15] MEDS: GABAPENTIN 300MG CAPSULE PO SCH ×3 (08:47→18:38)
[2020-07-15] MEDS: ACETAMINOPHEN 325MG TABLET PO PRN ×2 (08:48→15:00)
[2020-07-15] MEDS: SODIUM CHLORIDE 0.9% 1,000 ML IV SCH ×2 (11:47→23:02)
[2020-07-15 12:04] LABS: BG BASE EXCESS -2.9 mmol/L (-2.0-2.0); BG CARBOXYHEMOGLOBIN 0.1 % (0.5-1.5); BG DEOXYHEMOGLOBIN 5.3 % (0.0-5.0); BG FRACTION INSPIRED OXYGEN 75; BG METHEMOGLOBIN 0.5 % (0.0-1.5); BG OXYGEN SATURATION 94.7 % (92.0-98.5); BG OXYHEMOGLOBIN 94.1 % (94.0-97.0); BG PCO2 26.2 mmHg (35.0-45.0); BG PH 7.478 (7.350-7.450); BG PO2 66.1 mmHg (75.0-100.0); BG SAMPLE SITE RIGHT RADIAL; BG TOTAL HEMOGLOBIN 14.2 g/dL (12.0-18.0); BG VENT MODE MASK - SIMPLE
[2020-07-15] MEDS: MIDODRINE HCL 5MG TABLET PO SCH ×2 (13:46→18:38)
[2020-07-15] MEDS ORDERED: NOREPINEPHRINE 32 MG in DEXT 5% WATER 218 ML IV PRN (17:15)
[2020-07-15] MEDS ORDERED: SODIUM CHLORIDE 0.9% 1,000 ML IV NR (17:30)
[2020-07-15] MEDS ORDERED: ALBUMIN HUMAN 25GM/100ML (25%) IV NR (18:00)
[2020-07-15] MEDS: ENOXAPARIN 40MG/0.4ML SYR SUBCUT SCH (18:48)
[2020-07-15] MEDS: ZONISAMIDE 10 MG/ML PEG SCH (19:51)
[2020-07-16] VITALS (10 sets, daily range): BP systolic 72–132; BP diastolic 31–84
[2020-07-16] MEDS ORDERED: ALBUMIN HUMAN 25GM/100ML (25%) IV SCH (05:00)
[2020-07-16 06:29] LABS: HEMOGLOBIN. 11.7 g/dL (14.0-18.0); MEAN CORPUSCULAR HEMOGLOBIN 30.6 pg (28.0-32.0); MEAN CORPUSCULAR VOLUME 91.6 fL (80.0-94.0); MEAN PLATELET VOLUME 8.9 fl (7.4-10.4); PLATELET 146 x1000/uL (130-400); RED BLOOD CELL COUNT 3.82 mill/uL (4.7-6.1); RED CELL DISTRIBUTION WIDTH 13.1 % (11.6-14.6)
[2020-07-16] MEDS: LACOSAMIDE 100 MG TABLET PO SCH ×2 (09:23→21:00)
[2020-07-16] MEDS: DEXAMETHASONE 4MG/ML 1ML VIAL IV SCH (09:23)
[2020-07-16] MEDS: MIDODRINE HCL 5MG TABLET PO SCH ×3 (09:24→17:00)
[2020-07-16] MEDS: GABAPENTIN 300MG CAPSULE PO SCH ×3 (09:24→17:00)
[2020-07-16 10:14] LABS: PLATELET ESTIMATE NORMAL
[2020-07-16] MEDS ORDERED: ALBUMIN HUMAN 25GM/100ML (25%) IV NR (11:15)
[2020-07-16] MEDS ORDERED: SODIUM CHLORIDE 0.9% 500 ML IV NR (11:15)
[2020-07-16] MEDS: AZTREONAM 1 G in DEXTROSE 5% WATER 50 ML IV SCH (13:35)
[2020-07-16] MEDS: DEXT 5%/0.45% NACL 1000ML 1,000 ML IV SCH (13:35)
[2020-07-16] MEDS: ALBUTEROL 6.7GM HFA INHALER ORI SCH ×3 (13:48→22:20)
[2020-07-16 15:03] LABS: BG CARBOXYHEMOGLOBIN 0.2 % (0.5-1.5); BG DEOXYHEMOGLOBIN 2.6 % (0.0-5.0); BG FRACTION INSPIRED OXYGEN 100; BG HCO3 ACT 17.3 mmol/L (22.0-26.0); BG OXYGEN SATURATION 97.4 % (92.0-98.5); BG OXYHEMOGLOBIN 97.2 % (94.0-97.0); BG PCO2 30.9 mmHg (35.0-45.0); BG PH 7.365 (7.350-7.450); BG PO2 98.7 mmHg (75.0-100.0); BG SAMPLE SITE RIGHT RADIAL; BG TOTAL RESPIRATORY RATE 29 b/min; BG VENT MODE MASK - BIPAP
[2020-07-16] MEDS: ENOXAPARIN 40MG/0.4ML SYR SUBCUT SCH (17:52)
[2020-07-16] MEDS: ZONISAMIDE 10 MG/ML PEG SCH (21:00)
[2020-07-16] MEDS ORDERED: LEVOFLOXACIN 750MG PREMIX 150 ML IV NR (23:59)
[2020-07-17] VITALS (59 sets, daily range): BP systolic 96–171; BP diastolic 40–102
[2020-07-17 01:33] LABS: CLARITY URINE TURBID (CLEAR); COLOR URINE DARK YELLOW (YELLOW); KETONES URINE NEGATIVE (NEGATIVE); LEUKOCYTE ESTERASE URINE 2+ (NEGATIVE); NITRITE URINE POSITIVE (NEGATIVE); OCCULT BLOOD URINE 3+ (NEGATIVE); PH URINE 5.5 (4.5-8.0); PROTEIN URINE 3+ (NEGATIVE); SPECIFIC GRAVITY URINE 1.022 (1.005-1.030)
[2020-07-17] MEDS: AZTREONAM 1 G in DEXTROSE 5% WATER 50 ML IV SCH ×2 (03:48→13:57)
[2020-07-17] MEDS: DEXT 5%/0.45% NACL 1000ML 1,000 ML IV SCH ×2 (03:48→13:07)
[2020-07-17] MEDS: ALBUTEROL 6.7GM HFA INHALER ORI SCH (05:39)
[2020-07-17] MEDS: ACETAMINOPHEN 650MG SUPP PR PRN (05:55)
[2020-07-17 08:46] LABS: CHLORIDE 120 mEq/L (98-107)
[2020-07-17] MEDS: GABAPENTIN 300MG CAPSULE PO SCH ×3 (08:47→18:57)
[2020-07-17] MEDS: DEXAMETHASONE 4MG/ML 1ML VIAL IV SCH (08:47)
[2020-07-17] MEDS: LACOSAMIDE 100 MG TABLET PO SCH ×2 (08:47→21:12)
[2020-07-17] MEDS: MIDODRINE HCL 5MG TABLET PO SCH ×3 (08:48→17:00)
[2020-07-17 08:54] LABS: HEMATOCRIT. 33.3 % (42.0-52.0); HEMOGLOBIN. 11.2 g/dL (14.0-18.0); MEAN CORPUSCULAR HEMOGLOBIN 30.8 pg (28.0-32.0); MEAN CORPUSCULAR VOLUME 91.3 fL (80.0-94.0); MEAN PLATELET VOLUME 9.1 fl (7.4-10.4); PLATELET 127 x1000/uL (130-400); RED BLOOD CELL COUNT 3.64 mill/uL (4.7-6.1); RED CELL DISTRIBUTION WIDTH 13.5 % (11.6-14.6)
[2020-07-17 08:55] LABS: PHOSPHORUS 1.9 mg/dL (2.5-4.9)
[2020-07-17] MEDS ORDERED: SUCCINYLCHOLINE CHLORIDE 200MG/10ML IV ONE (09:00)
[2020-07-17] MEDS ORDERED: ETOMIDATE 2MG/ML 10ML VIAL IV ONE (09:00)
[2020-07-17] MEDS ORDERED: SODIUM CHLORIDE 0.9% 1,000 ML IV ONE (10:00)
[2020-07-17] MEDS ORDERED: MIDAZOLAM HCL 100 MG in DEXT 5% WATER 80 ML IV PRN (10:30)
[2020-07-17] MEDS ORDERED: FENTANYL CITRATE/PF 2,500 MCG in SODIUM CHLORIDE 0.9% 200 ML IV PRN (10:30)
[2020-07-17] MEDS ORDERED: FENTANYL CITRATE/PF 50MCG/ML 2ML VIAL ONE (10:33)
[2020-07-17] MEDS: FENTANYL CITRATE/PF 2,500 MCG in SODIUM CHLORIDE 0.9% 200 ML IV PRN (11:08)
[2020-07-17] MEDS: MIDAZOLAM HCL 100 MG in DEXT 5% WATER 80 ML IV PRN ×2 (11:10→23:09)
[2020-07-17 12:10] LABS: BG BASE EXCESS -10.8 mmol/L (-2.0-2.0); BG CARBOXYHEMOGLOBIN 0.3 % (0.5-1.5); BG DEOXYHEMOGLOBIN 17.4 % (0.0-5.0); BG FRACTION INSPIRED OXYGEN 100; BG METHEMOGLOBIN 0.2 % (0.0-1.5); BG OXYGEN SATURATION 82.5 % (92.0-98.5); BG OXYHEMOGLOBIN 82.1 % (94.0-97.0); BG PCO2 52.2 mmHg (35.0-45.0); BG PH 7.155 (7.350-7.450); BG PO2 51.7 mmHg (75.0-100.0); BG SAMPLE SITE RIGHT RADIAL; BG TOTAL HEMOGLOBIN 12.7 g/dL (12.0-18.0); BG TOTAL RESPIRATORY RATE 34 b/min; BG VENT MODE MASK - BIPAP
[2020-07-17] MEDS ORDERED: SODIUM BICARBONATE 8.4% 1 MEQ/ML 50ML SYR IV NR (12:30)
[2020-07-17] MEDS ORDERED: LEVOFLOXACIN 500MG PREMIX 100 ML IV SCH (14:00)
[2020-07-17 14:03] LABS: PLATELET ESTIMATE SLIGHTLY DECREASED
[2020-07-17 14:30] LABS: BG BASE EXCESS -4.8 mmol/L (-2.0-2.0); BG CARBOXYHEMOGLOBIN 0.3 % (0.5-1.5); BG DEOXYHEMOGLOBIN 1.8 % (0.0-5.0); BG FRACTION INSPIRED OXYGEN 100; BG HCO3 ACT 20.3 mmol/L (22.0-26.0); BG OXYGEN SATURATION 98.2 % (92.0-98.5); BG OXYHEMOGLOBIN 97.9 % (94.0-97.0); BG PCO2 37.7 mmHg (35.0-45.0); BG PH 7.348 (7.350-7.450); BG PO2 128.6 mmHg (75.0-100.0); BG SAMPLE SITE LEFT RADIAL; BG TOTAL HEMOGLOBIN 12.7 g/dL (12.0-18.0); BG VENT MODE VENT - AC
[2020-07-17] MEDS: DOPAMINE 400MG/250ML PREMIX 250 ML IV PRN (16:15)
[2020-07-17] MEDS ORDERED: POTASSIUM PHOS,M-BASIC-D-BASIC 20 MMOL in DEXT 5% WATER 243.3333 ML IV SCH (18:00)
[2020-07-17] MEDS: PANTOPRAZOLE SODIUM 40 MG/VIAL IV SCH (18:29)
[2020-07-17] MEDS: ENOXAPARIN 40MG/0.4ML SYR SUBCUT SCH (18:58)
[2020-07-17] MEDS: ZONISAMIDE 10 MG/ML PEG SCH (21:12)
[2020-07-17 21:58] LABS: PHOSPHORUS 3.2 mg/dL (2.5-4.9)
[2020-07-18] VITALS (90 sets, daily range): BP systolic 95–191; BP diastolic 51–121
[2020-07-18] MEDS: AZTREONAM 1 G in DEXTROSE 5% WATER 50 ML IV SCH ×2 (00:31→13:12)
[2020-07-18] MEDS: DOPAMINE 400MG/250ML PREMIX 250 ML IV PRN ×3 (02:10→23:44)
[2020-07-18] MEDS ORDERED: LEVOFLOXACIN 750MG PREMIX 150 ML IV SCH (05:00)
[2020-07-18 05:32] LABS: HEMATOCRIT. 40.1 % (42.0-52.0); HEMOGLOBIN. 13.4 g/dL (14.0-18.0); MEAN CORPUSCULAR HEMOGLOBIN 30.1 pg (28.0-32.0); MEAN CORPUSCULAR VOLUME 89.9 fL (80.0-94.0); MEAN PLATELET VOLUME 9.5 fl (7.4-10.4); PLATELET 147 x1000/uL (130-400); RED BLOOD CELL COUNT 4.46 mill/uL (4.7-6.1); RED CELL DISTRIBUTION WIDTH 13.7 % (11.6-14.6)
[2020-07-18 05:44] LABS: PHOSPHORUS 1.9 mg/dL (2.5-4.9)
[2020-07-18] MEDS ORDERED: DOPAMINE 400MG/250ML PREMIX 250 ML IV SCH (06:00)
[2020-07-18] MEDS ORDERED: DOPAMINE 400MG/250ML PREMIX 250 ML IV PRN (06:12)
[2020-07-18] MEDS ORDERED: ATROPINE SULFATE 1MG/ML VIAL IV PRN (07:45)
[2020-07-18] MEDS: PANTOPRAZOLE SODIUM 40 MG/VIAL IV SCH (08:25)
[2020-07-18] MEDS: DEXAMETHASONE 4MG/ML 1ML VIAL IV SCH (08:27)
[2020-07-18] MEDS: GABAPENTIN 300MG CAPSULE PO SCH ×3 (08:27→17:11)
[2020-07-18] MEDS: LACOSAMIDE 100 MG TABLET PO SCH ×2 (08:28→20:44)
[2020-07-18] MEDS: MIDODRINE HCL 5MG TABLET PO SCH ×3 (08:28→17:12)
[2020-07-18 09:09] LABS: BG BASE EXCESS -6.1 mmol/L (-2.0-2.0); BG CARBOXYHEMOGLOBIN 0.3 % (0.5-1.5); BG DEOXYHEMOGLOBIN 2.1 % (0.0-5.0); BG FRACTION INSPIRED OXYGEN 100; BG HCO3 ACT 18.7 mmol/L (22.0-26.0); BG METHEMOGLOBIN 0.2 % (0.0-1.5); BG OXYGEN SATURATION 97.9 % (92.0-98.5); BG OXYHEMOGLOBIN 97.4 % (94.0-97.0); BG PCO2 34.9 mmHg (35.0-45.0); BG PH 7.346 (7.350-7.450); BG SAMPLE SITE RIGHT RADIAL; BG TOTAL HEMOGLOBIN 13.9 g/dL (12.0-18.0); BG VENT MODE VENT - AC
[2020-07-18] MEDS: ATROPINE SULFATE 1MG/10ML SYR IV PRN ×2 (09:59→23:47)
[2020-07-18] MEDS: DEXT 5%/0.45% NACL 1000ML 1,000 ML IV SCH ×2 (10:00→16:23)
[2020-07-18 10:51] LABS: PLATELET ESTIMATE NORMAL
[2020-07-18] MEDS ORDERED: LORAZEPAM 2MG/ML CPJ IV PRN (13:00)
[2020-07-18] MEDS: ENOXAPARIN 40MG/0.4ML SYR SUBCUT SCH (18:59)
[2020-07-18] MEDS ORDERED: VANCOMYCIN 1,750 MG in DEXT 5% WATER 250 ML IV SCH (20:30)
[2020-07-18] MEDS: ZONISAMIDE 10 MG/ML PEG SCH (20:45)
[2020-07-18] MEDS: MIDAZOLAM HCL 100 MG in DEXT 5% WATER 80 ML IV PRN (21:14)
[2020-07-18] MEDS: FENTANYL CITRATE/PF 2,500 MCG in SODIUM CHLORIDE 0.9% 200 ML IV PRN (21:23)
[2020-07-19] VITALS (96 sets, daily range): BP systolic 111–161; BP diastolic 65–107
[2020-07-19] MEDS: ALBUTEROL 6.7GM HFA INHALER ORI SCH ×2 (00:59→09:25)
[2020-07-19 05:40] LABS: CHLORIDE 116 mEq/L (98-107)
[2020-07-19 05:43] LABS: HEMATOCRIT. 39.4 % (42.0-52.0); HEMOGLOBIN. 13.2 g/dL (14.0-18.0); MEAN CORPUSCULAR HEMOGLOBIN 30.1 pg (28.0-32.0); MEAN CORPUSCULAR VOLUME 89.4 fL (80.0-94.0); MEAN PLATELET VOLUME 9.8 fl (7.4-10.4); PLATELET 121 x1000/uL (130-400); RED BLOOD CELL COUNT 4.41 mill/uL (4.7-6.1); RED CELL DISTRIBUTION WIDTH 13.1 % (11.6-14.6)
[2020-07-19 05:50] LABS: CREATINE KINASE 133 IU/L (39-308)
[2020-07-19] MEDS: DEXT 5%/0.45% NACL 1000ML 1,000 ML IV SCH (06:02)
[2020-07-19] MEDS: ATROPINE SULFATE 1MG/10ML SYR IV PRN (06:07)
[2020-07-19] MEDS ORDERED: ZONISAMIDE 100MG CAPSULE PO SCH (09:00)
[2020-07-19] MEDS: MIDODRINE HCL 5MG TABLET PO SCH ×3 (09:00→18:18)
[2020-07-19] MEDS: LACOSAMIDE 100 MG TABLET PO SCH ×2 (09:20→20:58)
[2020-07-19] MEDS: GABAPENTIN 300MG CAPSULE PO SCH ×3 (09:20→18:17)
[2020-07-19] MEDS: DEXAMETHASONE 4MG/ML 1ML VIAL IV SCH (09:20)
[2020-07-19] MEDS: PANTOPRAZOLE SODIUM 40 MG/VIAL IV SCH (09:21)
[2020-07-19 10:09] LABS: PLATELET ESTIMATE SLIGHTLY DECREASED
[2020-07-19] MEDS: DOPAMINE 400MG/250ML PREMIX 250 ML IV PRN ×2 (12:38→20:57)
[2020-07-19 13:17] LABS: T4 FREE 0.99 ng/dL (0.76-1.46)
[2020-07-19] MEDS ORDERED: POTASSIUM PHOS,M-BASIC-D-BASIC 30 MMOL in DEXT 5% WATER 500 ML IV NR (14:30)
[2020-07-19] MEDS ORDERED: IPRATROPIUM/ALBUTEROL 0.5-3(2.5)MG/3ML NEB HHN PRN (16:15)
[2020-07-19] MEDS ORDERED: VANCOMYCIN 1 G PREMIX 200 ML IV SCH (18:00)
[2020-07-19] MEDS: ENOXAPARIN 40MG/0.4ML SYR SUBCUT SCH (18:18)
[2020-07-19] MEDS: MEROPENEM 1000MG in NORMAL SALINE 100ML IV SCH (19:25)
[2020-07-19] MEDS: ZONISAMIDE 10 MG/ML PEG SCH (20:59)
[2020-07-19] MEDS: IPRATROPIUM/ALBUTEROL 0.5-3(2.5)MG/3ML NEB HHN SCH (21:40)
[2020-07-19] MEDS: FENTANYL CITRATE/PF 2,500 MCG in SODIUM CHLORIDE 0.9% 200 ML IV PRN (23:01)
[2020-07-19] MEDS: MIDAZOLAM HCL 100 MG in DEXT 5% WATER 80 ML IV PRN (23:02)
[2020-07-20] VITALS (87 sets, daily range): BP systolic 93–133; BP diastolic 35–98
[2020-07-20] MEDS: DEXT 5%/0.45% NACL 1000ML 1,000 ML IV SCH ×2 (00:54→13:09)
[2020-07-20] MEDS: MEROPENEM 1000MG in NORMAL SALINE 100ML IV SCH ×3 (00:55→17:23)
[2020-07-20] MEDS: IPRATROPIUM/ALBUTEROL 0.5-3(2.5)MG/3ML NEB HHN SCH ×6 (01:50→22:00)
[2020-07-20 05:49] LABS: CHLORIDE 114 mEq/L (98-107)
[2020-07-20 06:03] LABS: HEMATOCRIT. 35.9 % (42.0-52.0); HEMOGLOBIN. 12.5 g/dL (14.0-18.0); MEAN CORPUSCULAR VOLUME 88.8 fL (80.0-94.0); MEAN PLATELET VOLUME 9.5 fl (7.4-10.4); PLATELET 132 x1000/uL (130-400); RED BLOOD CELL COUNT 4.04 mill/uL (4.7-6.1); RED CELL DISTRIBUTION WIDTH 13.2 % (11.6-14.6)
[2020-07-20 08:04] LABS: BG BASE EXCESS -5.5 mmol/L (-2.0-2.0); BG CARBOXYHEMOGLOBIN 0.3 % (0.5-1.5); BG DEOXYHEMOGLOBIN 0.6 % (0.0-5.0); BG HCO3 ACT 17.9 mmol/L (22.0-26.0); BG METHEMOGLOBIN 0.4 % (0.0-1.5); BG OXYGEN SATURATION 99.4 % (92.0-98.5); BG OXYHEMOGLOBIN 98.7 % (94.0-97.0); BG PCO2 29.2 mmHg (35.0-45.0); BG PH 7.405 (7.350-7.450); BG PO2 358.6 mmHg (75.0-100.0); BG SAMPLE SITE RIGHT RADIAL; BG TOTAL HEMOGLOBIN 13.1 g/dL (12.0-18.0); BG VENT MODE VENT - AC
[2020-07-20 08:12] LABS: MICROALBUMIN RANDOM URINE 309.8 ug/mL (Not Estab.)
[2020-07-20] MEDS: DEXAMETHASONE 4MG/ML 1ML VIAL IV SCH (10:16)
[2020-07-20] MEDS: LACOSAMIDE 100 MG TABLET PO SCH ×2 (10:17→21:06)
[2020-07-20] MEDS: PANTOPRAZOLE SODIUM 40 MG/VIAL IV SCH (10:17)
[2020-07-20] MEDS: GABAPENTIN 300MG CAPSULE PO SCH ×3 (10:17→17:23)
[2020-07-20] MEDS: MIDODRINE HCL 5MG TABLET PO SCH ×3 (10:18→17:24)
[2020-07-20] MEDS: VANCOMYCIN 1 G PREMIX 200 ML IV SCH ×2 (13:09→17:58)
[2020-07-20] MEDS: ENOXAPARIN 40MG/0.4ML SYR SUBCUT SCH (17:58)
[2020-07-20 18:08] LABS: PLATELET ESTIMATE NORMAL
[2020-07-20] MEDS: ZONISAMIDE 10 MG/ML PEG SCH (21:07)
[2020-07-21] VITALS (87 sets, daily range): BP systolic 72–149; BP diastolic 33–70
[2020-07-21] MEDS: DOPAMINE 400MG/250ML PREMIX 250 ML IV PRN (00:17)
[2020-07-21] MEDS: IPRATROPIUM/ALBUTEROL 0.5-3(2.5)MG/3ML NEB HHN SCH ×6 (01:11→20:39)
[2020-07-21] MEDS: MEROPENEM 1000MG in NORMAL SALINE 100ML IV SCH ×3 (01:25→18:18)
[2020-07-21] MEDS: VANCOMYCIN 1 G PREMIX 200 ML IV SCH (02:42)
[2020-07-21] MEDS: NOREPINEPHRINE 8 MG in DEXT 5% WATER 242 ML IV PRN (05:15)
[2020-07-21] MEDS: MIDAZOLAM HCL 100 MG in DEXT 5% WATER 80 ML IV PRN ×2 (05:15→22:30)
[2020-07-21] MEDS: DEXT 5%/0.45% NACL 1000ML 1,000 ML IV SCH ×2 (05:46→21:49)
[2020-07-21 06:06] LABS: BASOPHILS % 0.3 % (0.0-2.0); EOSINOPHILS % 1.6 % (0.0-5.0); HEMATOCRIT. 35.9 % (42.0-52.0); HEMOGLOBIN. 12.2 g/dL (14.0-18.0); LYMPHOCYTES % 13.8 % (20.0-50.0); MEAN CORPUSCULAR HEMOGLOBIN 30.5 pg (28.0-32.0); MEAN CORPUSCULAR VOLUME 89.7 fL (80.0-94.0); MEAN PLATELET VOLUME 9.6 fl (7.4-10.4); NEUTROPHILS % 80.3 % (40.0-76.0); PLATELET 152 x1000/uL (130-400); RED BLOOD CELL COUNT 4.01 mill/uL (4.7-6.1); RED CELL DISTRIBUTION WIDTH 13.3 % (11.6-14.6)
[2020-07-21 06:12] LABS: CHLORIDE 114 mEq/L (98-107)
[2020-07-21 06:17] LABS: PHOSPHORUS 2.4 mg/dL (2.5-4.9)
[2020-07-21] MEDS: GABAPENTIN 300MG CAPSULE PO SCH ×3 (09:59→18:17)
[2020-07-21] MEDS: LACOSAMIDE 100 MG TABLET PO SCH ×2 (09:59→21:20)
[2020-07-21] MEDS: DEXAMETHASONE 4MG/ML 1ML VIAL IV SCH (09:59)
[2020-07-21] MEDS: MIDODRINE HCL 5MG TABLET PO SCH ×3 (10:00→18:18)
[2020-07-21] MEDS: FENTANYL CITRATE/PF 2,500 MCG in SODIUM CHLORIDE 0.9% 200 ML IV PRN (10:09)
[2020-07-21] MEDS: PANTOPRAZOLE SODIUM 40 MG/VIAL IV SCH (10:09)
[2020-07-21 10:43] LABS: BG BASE EXCESS -4.1 mmol/L (-2.0-2.0); BG CARBOXYHEMOGLOBIN 0.2 % (0.5-1.5); BG DEOXYHEMOGLOBIN 1.1 % (0.0-5.0); BG FRACTION INSPIRED OXYGEN 90; BG HCO3 ACT 20.3 mmol/L (22.0-26.0); BG METHEMOGLOBIN 0.3 % (0.0-1.5); BG OXYGEN SATURATION 98.9 % (92.0-98.5); BG OXYHEMOGLOBIN 98.4 % (94.0-97.0); BG PCO2 35.1 mmHg (35.0-45.0); BG PO2 207.9 mmHg (75.0-100.0); BG SAMPLE SITE RIGHT RADIAL; BG TOTAL HEMOGLOBIN 12.6 g/dL (12.0-18.0); BG VENT MODE VENT - AC
[2020-07-21] MEDS: ACETAMINOPHEN 325MG TABLET PO PRN (12:55)
[2020-07-21] MEDS ORDERED: KCL 20MEQ/100ML PREMIX 100 ML IV ONE ×2 (13:00→15:00)
[2020-07-21] MEDS ORDERED: POTASSIUM PHOS,M-BASIC-D-BASIC 10 MMOL in DEXT 5% WATER 246.6667 ML IV SCH (14:00)
[2020-07-21] MEDS ORDERED: POTASSIUM CHLORIDE INJ 40 MEQ in DEXT 5% WATER 250 ML IV SCH (16:00)
[2020-07-21] MEDS: ENOXAPARIN 40MG/0.4ML SYR SUBCUT SCH (18:18)
[2020-07-21] MEDS: ZONISAMIDE 10 MG/ML PEG SCH ×2 (21:22→21:25)
[2020-07-21] MEDS: VANCOMYCIN 750 MG PREMIX 150 ML IV SCH (21:49)
[2020-07-22] VITALS (69 sets, daily range): BP systolic 89–141; BP diastolic 45–81
[2020-07-22] MEDS: IPRATROPIUM/ALBUTEROL 0.5-3(2.5)MG/3ML NEB HHN SCH ×5 (00:12→20:37)
[2020-07-22] MEDS: DEXT 5%/0.45% NACL 1000ML 1,000 ML IV SCH ×2 (00:50→14:48)
[2020-07-22] MEDS: MEROPENEM 1000MG in NORMAL SALINE 100ML IV SCH ×3 (00:57→18:47)
[2020-07-22 05:58] LABS: HEMATOCRIT. 36.1 % (42.0-52.0); HEMOGLOBIN. 12.3 g/dL (14.0-18.0); MEAN CORPUSCULAR HEMOGLOBIN 30.7 pg (28.0-32.0); MEAN CORPUSCULAR VOLUME 90.3 fL (80.0-94.0); MEAN PLATELET VOLUME 9.5 fl (7.4-10.4); PLATELET 143 x1000/uL (130-400); RED CELL DISTRIBUTION WIDTH 13.4 % (11.6-14.6)
[2020-07-22 06:13] LABS: CHLORIDE 112 mEq/L (98-107)
[2020-07-22 08:30] LABS: BG BASE EXCESS -5.5 mmol/L (-2.0-2.0); BG CARBOXYHEMOGLOBIN 0.2 % (0.5-1.5); BG DEOXYHEMOGLOBIN 1.7 % (0.0-5.0); BG FRACTION INSPIRED OXYGEN 90; BG HCO3 ACT 20.3 mmol/L (22.0-26.0); BG METHEMOGLOBIN 0.3 % (0.0-1.5); BG OXYGEN SATURATION 98.3 % (92.0-98.5); BG OXYHEMOGLOBIN 97.8 % (94.0-97.0); BG PCO2 40.4 mmHg (35.0-45.0); BG PH 7.318 (7.350-7.450); BG PO2 137.5 mmHg (75.0-100.0); BG SAMPLE SITE RIGHT RADIAL; BG TOTAL HEMOGLOBIN 12.1 g/dL (12.0-18.0); BG VENT MODE VENT - AC
[2020-07-22] MEDS: PANTOPRAZOLE SODIUM 40 MG/VIAL IV SCH (10:43)
[2020-07-22] MEDS: MIDODRINE HCL 5MG TABLET PO SCH ×3 (10:44→17:00)
[2020-07-22] MEDS: LACOSAMIDE 100 MG TABLET PO SCH ×2 (10:45→21:24)
[2020-07-22] MEDS: GABAPENTIN 300MG CAPSULE PO SCH ×3 (10:45→17:00)
[2020-07-22] MEDS: MIDAZOLAM HCL 100 MG in DEXT 5% WATER 80 ML IV PRN (10:55)
[2020-07-22 11:06] LABS: PLATELET ESTIMATE NORMAL
[2020-07-22] MEDS: VANCOMYCIN 750 MG PREMIX 150 ML IV SCH ×2 (12:13→21:24)
[2020-07-22] MEDS: FENTANYL CITRATE/PF 2,500 MCG in SODIUM CHLORIDE 0.9% 200 ML IV PRN (12:52)
[2020-07-22] MEDS: ENOXAPARIN 30MG/0.3ML SYR SUBCUT SCH (21:24)
[2020-07-22] MEDS: ZONISAMIDE 10 MG/ML PEG SCH (21:25)
[2020-07-23] VITALS (75 sets, daily range): BP systolic 81–150; BP diastolic 32–94
[2020-07-23] MEDS: IPRATROPIUM/ALBUTEROL 0.5-3(2.5)MG/3ML NEB HHN SCH ×6 (00:20→20:10)
[2020-07-23] MEDS: MEROPENEM 1000MG in NORMAL SALINE 100ML IV SCH ×3 (01:09→18:04)
[2020-07-23 05:52] LABS: CHLORIDE 112 mEq/L (98-107)
[2020-07-23] MEDS: DEXT 5%/0.45% NACL 1000ML 1,000 ML IV SCH (07:39)
[2020-07-23] MEDS: MIDAZOLAM HCL 100 MG in DEXT 5% WATER 80 ML IV PRN ×2 (09:07→23:58)
[2020-07-23] MEDS: NOREPINEPHRINE 8 MG in DEXT 5% WATER 242 ML IV PRN (09:22)
[2020-07-23] MEDS: VANCOMYCIN 750 MG PREMIX 150 ML IV SCH ×2 (09:22→20:58)
[2020-07-23] MEDS: PANTOPRAZOLE SODIUM 40 MG/VIAL IV SCH (09:23)
[2020-07-23] MEDS: LACOSAMIDE 100 MG TABLET PO SCH ×2 (09:24→22:53)
[2020-07-23] MEDS: GABAPENTIN 300MG CAPSULE PO SCH ×3 (09:24→18:05)
[2020-07-23] MEDS: ENOXAPARIN 30MG/0.3ML SYR SUBCUT SCH ×2 (09:24→22:53)
[2020-07-23] MEDS: MIDODRINE HCL 5MG TABLET PO SCH ×3 (09:25→17:00)
[2020-07-23] MEDS: FENTANYL CITRATE/PF 2,500 MCG in SODIUM CHLORIDE 0.9% 200 ML IV PRN ×2 (14:17→19:01)
[2020-07-23] MEDS: ZONISAMIDE 10 MG/ML PEG SCH (22:53)
[2020-07-23] MEDS: ACETAMINOPHEN 325MG TABLET PO PRN (23:16)
[2020-07-24] VITALS (90 sets, daily range): BP systolic 99–170; BP diastolic 45–124
[2020-07-24] MEDS: IPRATROPIUM/ALBUTEROL 0.5-3(2.5)MG/3ML NEB HHN SCH ×4 (00:12→20:48)
[2020-07-24] MEDS: MEROPENEM 1000MG in NORMAL SALINE 100ML IV SCH ×3 (03:54→21:38)
[2020-07-24] MEDS: DEXT 5%/0.45% NACL 1000ML 1,000 ML IV SCH ×2 (03:55→18:45)
[2020-07-24] MEDS: FENTANYL CITRATE/PF 2,500 MCG in SODIUM CHLORIDE 0.9% 200 ML IV PRN ×2 (05:06→11:59)
[2020-07-24] MEDS: NOREPINEPHRINE 8 MG in DEXT 5% WATER 242 ML IV PRN (05:07)
[2020-07-24 05:45] LABS: BASOPHILS % 0.3 % (0.0-2.0); EOSINOPHILS % 1.4 % (0.0-5.0); HEMOGLOBIN. 11.6 g/dL (14.0-18.0); LYMPHOCYTES % 11.4 % (20.0-50.0); MEAN CORPUSCULAR HEMOGLOBIN 30.9 pg (28.0-32.0); MEAN CORPUSCULAR VOLUME 90.9 fL (80.0-94.0); MEAN PLATELET VOLUME 8.8 fl (7.4-10.4); MONOCYTES % 2.1 % (2.0-8.0); NEUTROPHILS % 84.8 % (40.0-76.0); PLATELET 155 x1000/uL (130-400); RED BLOOD CELL COUNT 3.74 mill/uL (4.7-6.1); RED CELL DISTRIBUTION WIDTH 13.1 % (11.6-14.6)
[2020-07-24 05:48] LABS: CHLORIDE 110 mEq/L (98-107)
[2020-07-24] MEDS: PANTOPRAZOLE SODIUM 40 MG/VIAL IV SCH (08:25)
[2020-07-24] MEDS: LACOSAMIDE 100 MG TABLET PO SCH ×2 (08:25→21:37)
[2020-07-24] MEDS: MIDODRINE HCL 5MG TABLET PO SCH ×3 (08:26→17:11)
[2020-07-24] MEDS: GABAPENTIN 300MG CAPSULE PO SCH ×3 (08:26→17:11)
[2020-07-24] MEDS: ENOXAPARIN 30MG/0.3ML SYR SUBCUT SCH ×2 (08:26→21:37)
[2020-07-24 09:06] LABS: BG CARBOXYHEMOGLOBIN 0.5 % (0.5-1.5); BG DEOXYHEMOGLOBIN 3.2 % (0.0-5.0); BG FRACTION INSPIRED OXYGEN 80; BG HCO3 ACT 22.2 mmol/L (22.0-26.0); BG METHEMOGLOBIN 0.2 % (0.0-1.5); BG OXYGEN SATURATION 96.8 % (92.0-98.5); BG OXYHEMOGLOBIN 96.1 % (94.0-97.0); BG PCO2 44.8 mmHg (35.0-45.0); BG PH 7.313 (7.350-7.450); BG PO2 90.4 mmHg (75.0-100.0); BG SAMPLE SITE LEFT RADIAL; BG TOTAL RESPIRATORY RATE 28 b/min; BG VENT MODE VENT - AC
[2020-07-24] MEDS: MIDAZOLAM HCL 100 MG in DEXT 5% WATER 80 ML IV PRN ×2 (09:10→17:11)
[2020-07-24] MEDS: VANCOMYCIN 750 MG PREMIX 150 ML IV SCH ×2 (11:56→21:41)
[2020-07-24] MEDS ORDERED: PROPOFOL 10MG/ML 100ML 100 ML IV PRN (13:15)
[2020-07-24] MEDS: ZONISAMIDE 10 MG/ML PEG SCH (21:37)
[2020-07-25] VITALS (96 sets, daily range): BP systolic 80–171; BP diastolic 29–88
[2020-07-25] MEDS: IPRATROPIUM/ALBUTEROL 0.5-3(2.5)MG/3ML NEB HHN SCH ×4 (00:05→21:36)
[2020-07-25] MEDS: MEROPENEM 1000MG in NORMAL SALINE 100ML IV SCH ×3 (00:51→16:51)
[2020-07-25] MEDS: FENTANYL CITRATE/PF 2,500 MCG in SODIUM CHLORIDE 0.9% 200 ML IV PRN ×3 (02:31→20:59)
[2020-07-25 07:14] LABS: BASOPHILS % 0.5 % (0.0-2.0); EOSINOPHILS % 1.4 % (0.0-5.0); HEMATOCRIT. 30.9 % (42.0-52.0); HEMOGLOBIN. 10.5 g/dL (14.0-18.0); LYMPHOCYTES % 8.5 % (20.0-50.0); MEAN CORPUSCULAR HEMOGLOBIN 30.7 pg (28.0-32.0); MEAN CORPUSCULAR VOLUME 90.5 fL (80.0-94.0); MEAN PLATELET VOLUME 9.1 fl (7.4-10.4); MONOCYTES % 1.7 % (2.0-8.0); NEUTROPHILS % 87.9 % (40.0-76.0); PLATELET 62 x1000/uL (130-400); RED BLOOD CELL COUNT 3.42 mill/uL (4.7-6.1); RED CELL DISTRIBUTION WIDTH 13.5 % (11.6-14.6)
[2020-07-25 07:18] LABS: CHLORIDE 111 mEq/L (98-107)
[2020-07-25] MEDS: ENOXAPARIN 30MG/0.3ML SYR SUBCUT SCH (09:00)
[2020-07-25] MEDS: PANTOPRAZOLE SODIUM 40 MG/VIAL IV SCH (09:40)
[2020-07-25] MEDS: LACOSAMIDE 100 MG TABLET PO SCH ×2 (09:40→21:00)
[2020-07-25] MEDS: GABAPENTIN 300MG CAPSULE PO SCH ×3 (09:40→16:49)
[2020-07-25] MEDS: MIDODRINE HCL 5MG TABLET PO SCH ×3 (09:41→16:49)
[2020-07-25] MEDS ORDERED: BISACODYL 10MG SUPP PR SCH (10:00)
[2020-07-25 10:47] LABS: BG BASE EXCESS -1.8 mmol/L (-2.0-2.0); BG CARBOXYHEMOGLOBIN 0.3 % (0.5-1.5); BG DEOXYHEMOGLOBIN 3.2 % (0.0-5.0); BG HCO3 ACT 23.9 mmol/L (22.0-26.0); BG METHEMOGLOBIN 0.3 % (0.0-1.5); BG OXYGEN SATURATION 96.8 % (92.0-98.5); BG OXYHEMOGLOBIN 96.2 % (94.0-97.0); BG PCO2 44.1 mmHg (35.0-45.0); BG PH 7.351 (7.350-7.450); BG PO2 89.3 mmHg (75.0-100.0); BG SAMPLE SITE RIGHT RADIAL; BG TOTAL HEMOGLOBIN 10.8 g/dL (12.0-18.0); BG VENT MODE VENT - AC
[2020-07-25] MEDS: DEXT 5%/0.45% NACL 1000ML 1,000 ML IV SCH ×2 (12:03→12:04)
[2020-07-25] MEDS: MIDAZOLAM HCL 100 MG in DEXT 5% WATER 80 ML IV PRN (12:55)
[2020-07-25] MEDS: ONFI 10 MG PO SCH (16:50)
[2020-07-25] MEDS ORDERED: DOCUSATE SODIUM 250MG CAPSULE PO SCH (17:00)
[2020-07-25] MEDS ORDERED: LACTULOSE 20G/30ML UDC PO NR (17:00)
[2020-07-25] MEDS ORDERED: BISACODYL 10MG SUPP PR NR (17:00)
[2020-07-25] MEDS: ZONISAMIDE 10 MG/ML PEG SCH (21:00)
[2020-07-25] MEDS: BRIVIACT 100 MG XX SCH (22:33)
[2020-07-26] VITALS (92 sets, daily range): BP systolic 87–142; BP diastolic 41–97
[2020-07-26] MEDS: IPRATROPIUM/ALBUTEROL 0.5-3(2.5)MG/3ML NEB HHN SCH ×6 (00:48→22:14)
[2020-07-26] MEDS: MEROPENEM 1000MG in NORMAL SALINE 100ML IV SCH ×3 (02:58→16:15)
[2020-07-26] MEDS: DEXT 5%/0.45% NACL 1000ML 1,000 ML IV SCH ×2 (02:59→10:32)
[2020-07-26 05:56] LABS: BASOPHILS % 0.4 % (0.0-2.0); EOSINOPHILS % 1.1 % (0.0-5.0); HEMATOCRIT. 29.9 % (42.0-52.0); HEMOGLOBIN. 10.3 g/dL (14.0-18.0); LYMPHOCYTES % 14.3 % (20.0-50.0); MEAN CORPUSCULAR HEMOGLOBIN 31.1 pg (28.0-32.0); MEAN CORPUSCULAR VOLUME 89.9 fL (80.0-94.0); MEAN PLATELET VOLUME 8.8 fl (7.4-10.4); MONOCYTES % 4.8 % (2.0-8.0); NEUTROPHILS % 79.4 % (40.0-76.0); PLATELET 175 x1000/uL (130-400); RED BLOOD CELL COUNT 3.32 mill/uL (4.7-6.1); RED CELL DISTRIBUTION WIDTH 13.4 % (11.6-14.6)
[2020-07-26 06:17] LABS: CHLORIDE 110 mEq/L (98-107)
[2020-07-26] MEDS: FENTANYL CITRATE/PF 2,500 MCG in SODIUM CHLORIDE 0.9% 200 ML IV PRN ×2 (09:25→20:56)
[2020-07-26] MEDS: PANTOPRAZOLE SODIUM 40 MG/VIAL IV SCH (09:54)
[2020-07-26] MEDS: DOCUSATE SODIUM SUGAR FREE 100MG/10ML UDC NG SCH (09:54)
[2020-07-26] MEDS: LACOSAMIDE 100 MG TABLET PO SCH ×2 (09:54→21:46)
[2020-07-26] MEDS: GABAPENTIN 300MG CAPSULE PO SCH ×3 (09:55→16:15)
[2020-07-26] MEDS: MIDODRINE HCL 5MG TABLET PO SCH ×3 (09:55→16:15)
[2020-07-26] MEDS: ONFI 10 MG PO SCH ×2 (10:32→16:22)
[2020-07-26] MEDS: BRIVIACT 100 MG XX SCH ×2 (10:32→22:21)
[2020-07-26 13:23] LABS: BG BASE EXCESS -1.8 mmol/L (-2.0-2.0); BG CARBOXYHEMOGLOBIN 0.3 % (0.5-1.5); BG DEOXYHEMOGLOBIN 8.2 % (0.0-5.0); BG FRACTION INSPIRED OXYGEN 50; BG HCO3 ACT 23.5 mmol/L (22.0-26.0); BG METHEMOGLOBIN 0.6 % (0.0-1.5); BG OXYGEN SATURATION 91.7 % (92.0-98.5); BG OXYHEMOGLOBIN 90.9 % (94.0-97.0); BG PCO2 41.7 mmHg (35.0-45.0); BG PH 7.368 (7.350-7.450); BG PO2 62.1 mmHg (75.0-100.0); BG SAMPLE SITE RIGHT RADIAL; BG TOTAL HEMOGLOBIN 11.5 g/dL (12.0-18.0); BG VENT MODE VENT - AC
[2020-07-26] MEDS: NOREPINEPHRINE 8 MG in DEXT 5% WATER 242 ML IV PRN (13:59)
[2020-07-26] MEDS: MIDAZOLAM HCL 100 MG in DEXT 5% WATER 80 ML IV PRN (16:17)
[2020-07-26] MEDS: ENOXAPARIN 30MG/0.3ML SYR SUBCUT SCH (21:00)
[2020-07-26] MEDS: ZONISAMIDE 10 MG/ML PEG SCH (21:47)
[2020-07-27] VITALS (95 sets, daily range): BP systolic 61–150; BP diastolic 40–94
[2020-07-27] MEDS: IPRATROPIUM/ALBUTEROL 0.5-3(2.5)MG/3ML NEB HHN SCH ×5 (00:52→20:49)
[2020-07-27] MEDS: MEROPENEM 1000MG in NORMAL SALINE 100ML IV SCH ×3 (02:11→17:55)
[2020-07-27] MEDS: DEXT 5%/0.45% NACL 1000ML 1,000 ML IV SCH ×2 (02:12→14:14)
[2020-07-27 05:56] LABS: CHLORIDE 109 mEq/L (98-107)
[2020-07-27] MEDS ORDERED: MIDAZOLAM HCL 100 MG in SODIUM CHLORIDE 0.9% 80 ML IV PRN (06:00)
[2020-07-27 06:03] LABS: BASOPHILS % 0.5 % (0.0-2.0); EOSINOPHILS % 1.1 % (0.0-5.0); HEMATOCRIT. 29.5 % (42.0-52.0); HEMOGLOBIN. 10.6 g/dL (14.0-18.0); LYMPHOCYTES % 22.5 % (20.0-50.0); MEAN CORPUSCULAR HEMOGLOBIN 32.2 pg (28.0-32.0); MEAN PLATELET VOLUME 7.8 fl (7.4-10.4); MONOCYTES % 6.9 % (2.0-8.0); PLATELET 187 x1000/uL (130-400); RED BLOOD CELL COUNT 3.28 mill/uL (4.7-6.1); RED CELL DISTRIBUTION WIDTH 13.3 % (11.6-14.6)
[2020-07-27] MEDS: FENTANYL CITRATE/PF 2,500 MCG in SODIUM CHLORIDE 0.9% 200 ML IV PRN (07:43)
[2020-07-27] MEDS: GABAPENTIN 300MG CAPSULE PO SCH ×3 (08:57→17:55)
[2020-07-27] MEDS: DOCUSATE SODIUM SUGAR FREE 100MG/10ML UDC NG SCH (08:57)
[2020-07-27] MEDS: BRIVIACT 100 MG XX SCH ×2 (08:57→22:05)
[2020-07-27] MEDS: ONFI 10 MG PO SCH ×2 (08:57→17:52)
[2020-07-27] MEDS: PANTOPRAZOLE SODIUM 40 MG/VIAL IV SCH (08:59)
[2020-07-27] MEDS: LACOSAMIDE 100 MG TABLET PO SCH ×2 (09:01→21:27)
[2020-07-27] MEDS: MIDODRINE HCL 5MG TABLET PO SCH ×3 (09:01→17:55)
[2020-07-27 11:08] LABS: BG BASE EXCESS -1.3 mmol/L (-2.0-2.0); BG CARBOXYHEMOGLOBIN 0.9 % (0.5-1.5); BG DEOXYHEMOGLOBIN 3.2 % (0.0-5.0); BG FRACTION INSPIRED OXYGEN 50; BG HCO3 ACT 25.4 mmol/L (22.0-26.0); BG METHEMOGLOBIN 0.3 % (0.0-1.5); BG OXYGEN SATURATION 96.8 % (92.0-98.5); BG OXYHEMOGLOBIN 95.6 % (94.0-97.0); BG PCO2 50.6 mmHg (35.0-45.0); BG PH 7.319 (7.350-7.450); BG PO2 94.7 mmHg (75.0-100.0); BG SAMPLE SITE RIGHT RADIAL; BG TOTAL HEMOGLOBIN 13.9 g/dL (12.0-18.0); BG VENT MODE VENT - AC
[2020-07-27] MEDS: ENOXAPARIN 30MG/0.3ML SYR SUBCUT SCH ×2 (12:43→21:27)
[2020-07-27] MEDS: ZONISAMIDE 10 MG/ML PEG SCH (21:27)
[2020-07-28] VITALS (89 sets, daily range): BP systolic 73–148; BP diastolic 39–91
[2020-07-28] MEDS: MEROPENEM 1000MG in NORMAL SALINE 100ML IV SCH ×3 (00:08→18:43)
[2020-07-28] MEDS: IPRATROPIUM/ALBUTEROL 0.5-3(2.5)MG/3ML NEB HHN SCH ×7 (00:16→21:39)
[2020-07-28 05:56] LABS: CHLORIDE 106 mEq/L (98-107)
[2020-07-28 06:00] LABS: BASOPHILS % 0.9 % (0.0-2.0); EOSINOPHILS % 1.2 % (0.0-5.0); HEMATOCRIT. 30.3 % (42.0-52.0); HEMOGLOBIN. 10.3 g/dL (14.0-18.0); LYMPHOCYTES % 17.7 % (20.0-50.0); MEAN CORPUSCULAR HEMOGLOBIN 30.9 pg (28.0-32.0); MEAN CORPUSCULAR VOLUME 90.6 fL (80.0-94.0); MEAN PLATELET VOLUME 8.1 fl (7.4-10.4); MONOCYTES % 7.2 % (2.0-8.0); PLATELET 135 x1000/uL (130-400); RED BLOOD CELL COUNT 3.35 mill/uL (4.7-6.1); RED CELL DISTRIBUTION WIDTH 13.4 % (11.6-14.6)
[2020-07-28] MEDS: FENTANYL CITRATE/PF 2,500 MCG in SODIUM CHLORIDE 0.9% 200 ML IV PRN ×2 (06:26→21:36)
[2020-07-28] MEDS: DEXT 5%/0.45% NACL 1000ML 1,000 ML IV SCH ×2 (06:29→18:42)
[2020-07-28] MEDS: PANTOPRAZOLE SODIUM 40 MG/VIAL IV SCH (10:01)
[2020-07-28] MEDS: ENOXAPARIN 30MG/0.3ML SYR SUBCUT SCH ×2 (10:01→22:55)
[2020-07-28] MEDS: LACOSAMIDE 100 MG TABLET PO SCH ×2 (10:01→22:56)
[2020-07-28] MEDS: DOCUSATE SODIUM SUGAR FREE 100MG/10ML UDC NG SCH (10:01)
[2020-07-28] MEDS: GABAPENTIN 300MG CAPSULE PO SCH ×3 (10:04→18:42)
[2020-07-28] MEDS: ONFI 10 MG PO SCH ×2 (10:04→18:42)
[2020-07-28] MEDS: BRIVIACT 100 MG XX SCH ×2 (10:04→22:55)
[2020-07-28] MEDS: MIDODRINE HCL 5MG TABLET PO SCH ×3 (10:04→18:43)
[2020-07-28] MEDS: MIDAZOLAM HCL 100 MG in DEXT 5% WATER 80 ML IV PRN ×2 (10:38→12:50)
[2020-07-28 14:50] LABS: BG BASE EXCESS 0.3 mmol/L (-2.0-2.0); BG CARBOXYHEMOGLOBIN 0.5 % (0.5-1.5); BG DEOXYHEMOGLOBIN 9.1 % (0.0-5.0); BG FRACTION INSPIRED OXYGEN 40; BG HCO3 ACT 25.1 mmol/L (22.0-26.0); BG METHEMOGLOBIN 0.2 % (0.0-1.5); BG OXYGEN SATURATION 90.8 % (92.0-98.5); BG OXYHEMOGLOBIN 90.2 % (94.0-97.0); BG PCO2 41.5 mmHg (35.0-45.0); BG PO2 58.4 mmHg (75.0-100.0); BG SAMPLE SITE RIGHT RADIAL; BG TOTAL HEMOGLOBIN 11.1 g/dL (12.0-18.0); BG TOTAL RESPIRATORY RATE 28 b/min; BG VENT MODE VENT - AC
[2020-07-28] MEDS: NOREPINEPHRINE 8 MG in DEXT 5% WATER 242 ML IV PRN (21:37)
[2020-07-28] MEDS: ZONISAMIDE 10 MG/ML PEG SCH (22:56)
[2020-07-29] VITALS (85 sets, daily range): BP systolic 99–155; BP diastolic 39–97
[2020-07-29] MEDS: MEROPENEM 1000MG in NORMAL SALINE 100ML IV SCH ×3 (00:23→17:09)
[2020-07-29] MEDS: IPRATROPIUM/ALBUTEROL 0.5-3(2.5)MG/3ML NEB HHN SCH ×6 (01:00→20:23)
[2020-07-29 06:08] LABS: HEMOGLOBIN. 9.6 g/dL (14.0-18.0); MEAN CORPUSCULAR HEMOGLOBIN 30.4 pg (28.0-32.0); PLATELET 221 x1000/uL (130-400); RED BLOOD CELL COUNT 3.15 mill/uL (4.7-6.1)
[2020-07-29 06:26] LABS: CHLORIDE 108 mEq/L (98-107)
[2020-07-29 07:25] LABS: HEMATOCRIT. 28.8 % (42.0-52.0); MEAN CORPUSCULAR VOLUME 91.5 fL (80.0-94.0); MEAN PLATELET VOLUME 8.6 fl (7.4-10.4); RED CELL DISTRIBUTION WIDTH 13.4 % (11.6-14.6)
[2020-07-29 08:00] LABS: PLATELET ESTIMATE NORMAL
[2020-07-29] MEDS: FENTANYL CITRATE/PF 2,500 MCG in SODIUM CHLORIDE 0.9% 200 ML IV PRN ×2 (08:37→14:57)
[2020-07-29] MEDS: MIDAZOLAM HCL 100 MG in DEXT 5% WATER 80 ML IV PRN ×2 (08:38→18:38)
[2020-07-29] MEDS: ENOXAPARIN 30MG/0.3ML SYR SUBCUT SCH ×2 (10:08→21:44)
[2020-07-29] MEDS: LACOSAMIDE 100 MG TABLET PO SCH ×2 (10:08→21:53)
[2020-07-29] MEDS: DOCUSATE SODIUM SUGAR FREE 100MG/10ML UDC NG SCH (10:08)
[2020-07-29] MEDS: PANTOPRAZOLE SODIUM 40 MG/VIAL IV SCH (10:09)
[2020-07-29] MEDS: MIDODRINE HCL 5MG TABLET PO SCH ×3 (10:09→17:10)
[2020-07-29] MEDS: GABAPENTIN 300MG CAPSULE PO SCH ×3 (10:10→18:23)
[2020-07-29 10:39] LABS: BG BASE EXCESS -0.7 mmol/L (-2.0-2.0); BG CARBOXYHEMOGLOBIN 0.5 % (0.5-1.5); BG DEOXYHEMOGLOBIN 3.6 % (0.0-5.0); BG FRACTION INSPIRED OXYGEN 40; BG HCO3 ACT 23.7 mmol/L (22.0-26.0); BG METHEMOGLOBIN 0.3 % (0.0-1.5); BG OXYGEN SATURATION 96.4 % (92.0-98.5); BG OXYHEMOGLOBIN 95.6 % (94.0-97.0); BG PCO2 37.8 mmHg (35.0-45.0); BG PH 7.415 (7.350-7.450); BG PO2 83.6 mmHg (75.0-100.0); BG SAMPLE SITE RIGHT RADIAL; BG TOTAL HEMOGLOBIN 10.1 g/dL (12.0-18.0); BG VENT MODE VENT - AC
[2020-07-29] MEDS: ONFI 10 MG PO SCH ×2 (11:04→18:23)
[2020-07-29] MEDS: BRIVIACT 100 MG XX SCH ×2 (11:05→21:38)
[2020-07-29] MEDS: DEXT 5%/0.45% NACL 1000ML 1,000 ML IV SCH (13:55)
[2020-07-29] MEDS: NOREPINEPHRINE 8 MG in DEXT 5% WATER 242 ML IV PRN (14:56)
[2020-07-29] MEDS ORDERED: *PATIENT'S OWN MEDICATION STORAGE XX SCH (15:15)
[2020-07-29] MEDS: ZONISAMIDE 10 MG/ML PEG SCH (21:42)
[2020-07-30] VITALS (95 sets, daily range): BP systolic 81–170; BP diastolic 38–104
[2020-07-30] MEDS: FENTANYL CITRATE/PF 2,500 MCG in SODIUM CHLORIDE 0.9% 200 ML IV PRN ×4 (00:07→22:14)
[2020-07-30] MEDS: MEROPENEM 1000MG in NORMAL SALINE 100ML IV SCH ×3 (01:05→18:22)
[2020-07-30] MEDS: IPRATROPIUM/ALBUTEROL 0.5-3(2.5)MG/3ML NEB HHN SCH ×6 (01:09→22:02)
[2020-07-30 04:38] LABS: BASOPHILS % 0.5 % (0.0-2.0); EOSINOPHILS % 1.2 % (0.0-5.0); HEMATOCRIT. 30.6 % (42.0-52.0); HEMOGLOBIN. 10.2 g/dL (14.0-18.0); LYMPHOCYTES % 18.2 % (20.0-50.0); MEAN CORPUSCULAR VOLUME 90.1 fL (80.0-94.0); MONOCYTES % 9.6 % (2.0-8.0); NEUTROPHILS % 70.5 % (40.0-76.0); PLATELET 227 x1000/uL (130-400); RED BLOOD CELL COUNT 3.39 mill/uL (4.7-6.1); RED CELL DISTRIBUTION WIDTH 13.4 % (11.6-14.6)
[2020-07-30 04:43] LABS: CHLORIDE 107 mEq/L (98-107)
[2020-07-30] MEDS: MIDAZOLAM HCL 100 MG in DEXT 5% WATER 80 ML IV PRN ×2 (05:11→14:10)
[2020-07-30] MEDS: DOCUSATE SODIUM SUGAR FREE 100MG/10ML UDC NG SCH (09:39)
[2020-07-30] MEDS: PANTOPRAZOLE SODIUM 40 MG/VIAL IV SCH (09:40)
[2020-07-30] MEDS: GABAPENTIN 300MG CAPSULE PO SCH ×3 (09:40→18:22)
[2020-07-30] MEDS: MIDODRINE HCL 5MG TABLET PO SCH ×3 (09:40→18:22)
[2020-07-30] MEDS: ENOXAPARIN 30MG/0.3ML SYR SUBCUT SCH ×2 (09:44→21:00)
[2020-07-30] MEDS: LACOSAMIDE 100 MG TABLET PO SCH ×2 (09:44→21:00)
[2020-07-30] MEDS: BRIVIACT 100 MG XX SCH ×2 (10:46→21:00)
[2020-07-30] MEDS: ONFI 10 MG PO SCH ×2 (10:46→18:40)
[2020-07-30 10:47] LABS: BG BASE EXCESS 3.1 mmol/L (-2.0-2.0); BG CARBOXYHEMOGLOBIN 0.2 % (0.5-1.5); BG DEOXYHEMOGLOBIN 8.5 % (0.0-5.0); BG FRACTION INSPIRED OXYGEN 40; BG HCO3 ACT 28.1 mmol/L (22.0-26.0); BG METHEMOGLOBIN 0.3 % (0.0-1.5); BG OXYGEN SATURATION 91.5 % (92.0-98.5); BG PCO2 44.5 mmHg (35.0-45.0); BG PH 7.418 (7.350-7.450); BG PO2 60.9 mmHg (75.0-100.0); BG SAMPLE SITE RIGHT RADIAL; BG TOTAL HEMOGLOBIN 10.7 g/dL (12.0-18.0); BG VENT MODE VENT - AC
[2020-07-30] MEDS: DEXT 5%/0.45% NACL 1000ML 1,000 ML IV SCH ×3 (10:47→23:41)
[2020-07-30] MEDS: NOREPINEPHRINE 8 MG in DEXT 5% WATER 242 ML IV PRN (14:14)
[2020-07-30] MEDS: ZONISAMIDE 10 MG/ML PEG SCH (21:00)
[2020-07-31] VITALS (88 sets, daily range): BP systolic 89–154; BP diastolic 43–90
[2020-07-31] MEDS: MIDAZOLAM HCL 100 MG in DEXT 5% WATER 80 ML IV PRN ×3 (00:54→21:06)
[2020-07-31] MEDS: IPRATROPIUM/ALBUTEROL 0.5-3(2.5)MG/3ML NEB HHN SCH ×6 (01:13→21:02)
[2020-07-31] MEDS: MEROPENEM 1000MG in NORMAL SALINE 100ML IV SCH ×3 (01:41→17:46)
[2020-07-31 05:22] LABS: HEMATOCRIT. 29.7 % (42.0-52.0); HEMOGLOBIN. 9.9 g/dL (14.0-18.0); MEAN CORPUSCULAR VOLUME 89.9 fL (80.0-94.0); MEAN PLATELET VOLUME 7.2 fl (7.4-10.4); PLATELET 242 x1000/uL (130-400); RED CELL DISTRIBUTION WIDTH 13.3 % (11.6-14.6)
[2020-07-31] MEDS: FENTANYL CITRATE/PF 2,500 MCG in SODIUM CHLORIDE 0.9% 200 ML IV PRN ×3 (06:00→21:07)
[2020-07-31 06:24] LABS: CHLORIDE 106 mEq/L (98-107)
[2020-07-31] MEDS: LACOSAMIDE 100 MG TABLET PO SCH ×2 (09:00→22:24)
[2020-07-31] MEDS: DOCUSATE SODIUM SUGAR FREE 100MG/10ML UDC NG SCH (09:22)
[2020-07-31] MEDS: GABAPENTIN 300MG CAPSULE PO SCH ×3 (09:23→17:46)
[2020-07-31] MEDS: PANTOPRAZOLE SODIUM 40 MG/VIAL IV SCH (09:23)
[2020-07-31] MEDS: ENOXAPARIN 30MG/0.3ML SYR SUBCUT SCH ×2 (09:24→22:24)
[2020-07-31] MEDS: MIDODRINE HCL 5MG TABLET PO SCH ×3 (09:24→17:46)
[2020-07-31 10:26] LABS: BG BASE EXCESS 3.7 mmol/L (-2.0-2.0); BG CARBOXYHEMOGLOBIN 0.4 % (0.5-1.5); BG DEOXYHEMOGLOBIN 5.2 % (0.0-5.0); BG FRACTION INSPIRED OXYGEN 40; BG METHEMOGLOBIN 0.2 % (0.0-1.5); BG OXYGEN SATURATION 94.8 % (92.0-98.5); BG OXYHEMOGLOBIN 94.2 % (94.0-97.0); BG PCO2 47.4 mmHg (35.0-45.0); BG PH 7.405 (7.350-7.450); BG PO2 72.3 mmHg (75.0-100.0); BG SAMPLE SITE LEFT BRACHIAL; BG TOTAL HEMOGLOBIN 10.8 g/dL (12.0-18.0); BG TOTAL RESPIRATORY RATE 23 b/min; BG VENT MODE VENT - AC
[2020-07-31 11:04] LABS: PLATELET ESTIMATE NORMAL
[2020-07-31] MEDS: DEXT 5%/0.45% NACL 1000ML 1,000 ML IV SCH (12:37)
[2020-07-31] MEDS: ONFI 10 MG PO SCH ×2 (14:48→17:00)
[2020-07-31] MEDS: BRIVIACT 100 MG XX SCH ×2 (14:48→22:24)
[2020-07-31] MEDS: ZONISAMIDE 10 MG/ML PEG SCH (22:25)
[2020-08-01] VITALS (70 sets, daily range): BP systolic 88–155; BP diastolic 40–81
[2020-08-01] MEDS: MEROPENEM 1000MG in NORMAL SALINE 100ML IV SCH ×3 (01:12→18:07)
[2020-08-01] MEDS: DEXT 5%/0.45% NACL 1000ML 1,000 ML IV SCH ×2 (01:12→15:19)
[2020-08-01] MEDS: FENTANYL CITRATE/PF 2,500 MCG in SODIUM CHLORIDE 0.9% 200 ML IV PRN ×3 (04:39→19:58)
[2020-08-01] MEDS: MIDAZOLAM HCL 100 MG in DEXT 5% WATER 80 ML IV PRN (04:40)
[2020-08-01 05:38] LABS: HEMATOCRIT. 28.4 % (42.0-52.0); HEMOGLOBIN. 9.5 g/dL (14.0-18.0); MEAN CORPUSCULAR HEMOGLOBIN 30.1 pg (28.0-32.0); MEAN CORPUSCULAR VOLUME 90.3 fL (80.0-94.0); MEAN PLATELET VOLUME 7.4 fl (7.4-10.4); PLATELET 246 x1000/uL (130-400); RED BLOOD CELL COUNT 3.15 mill/uL (4.7-6.1); RED CELL DISTRIBUTION WIDTH 13.4 % (11.6-14.6)
[2020-08-01 05:51] LABS: CHLORIDE 106 mEq/L (98-107)
[2020-08-01] MEDS: IPRATROPIUM/ALBUTEROL 0.5-3(2.5)MG/3ML NEB HHN SCH ×4 (08:28→21:33)
[2020-08-01] MEDS: DOCUSATE SODIUM SUGAR FREE 100MG/10ML UDC NG SCH (09:00)
[2020-08-01] MEDS: BRIVIACT 100 MG XX SCH ×2 (09:00→21:43)
[2020-08-01] MEDS: ONFI 10 MG PO SCH ×2 (09:00→17:00)
[2020-08-01] MEDS: GABAPENTIN 300MG CAPSULE PO SCH ×3 (09:19→18:04)
[2020-08-01] MEDS: ENOXAPARIN 30MG/0.3ML SYR SUBCUT SCH ×2 (09:19→21:43)
[2020-08-01] MEDS: PANTOPRAZOLE SODIUM 40 MG/VIAL IV SCH (09:19)
[2020-08-01] MEDS: MIDODRINE HCL 5MG TABLET PO SCH ×3 (09:20→18:04)
[2020-08-01] MEDS: LACOSAMIDE 100 MG TABLET PO SCH ×2 (09:20→21:44)
[2020-08-01 09:44] LABS: BG BASE EXCESS 4.6 mmol/L (-2.0-2.0); BG CARBOXYHEMOGLOBIN 0.3 % (0.5-1.5); BG DEOXYHEMOGLOBIN 2.3 % (0.0-5.0); BG FRACTION INSPIRED OXYGEN 60; BG HCO3 ACT 30.7 mmol/L (22.0-26.0); BG METHEMOGLOBIN 0.1 % (0.0-1.5); BG OXYGEN SATURATION 97.7 % (92.0-98.5); BG OXYHEMOGLOBIN 97.3 % (94.0-97.0); BG PCO2 53.9 mmHg (35.0-45.0); BG PH 7.374 (7.350-7.450); BG PO2 110.9 mmHg (75.0-100.0); BG SAMPLE SITE LEFT RADIAL; BG TOTAL HEMOGLOBIN 10.6 g/dL (12.0-18.0); BG TOTAL RESPIRATORY RATE 21 b/min; BG VENT MODE VENT - AC
[2020-08-01] MEDS ORDERED: MIDAZOLAM HCL 100 MG in SODIUM CHLORIDE 0.9% 80 ML IV PRN (13:00)
[2020-08-01] MEDS: MIDAZOLAM HCL 100 MG in SODIUM CHLORIDE 0.9% 80 ML IV PRN ×2 (14:51→21:55)
[2020-08-01 15:30] LABS: PLATELET ESTIMATE NORMAL
[2020-08-01] MEDS: RISPERIDONE 0.5MG TABLET PO SCH (18:04)
[2020-08-01] MEDS: ZONISAMIDE 10 MG/ML PEG SCH (21:43)
[2020-08-02] VITALS (70 sets, daily range): BP systolic 83–169; BP diastolic 40–99
[2020-08-02] MEDS: DEXT 5%/0.45% NACL 1000ML 1,000 ML IV SCH ×2 (03:25→16:01)
[2020-08-02] MEDS: FENTANYL CITRATE/PF 2,500 MCG in SODIUM CHLORIDE 0.9% 200 ML IV PRN (04:07)
[2020-08-02] MEDS: IPRATROPIUM/ALBUTEROL 0.5-3(2.5)MG/3ML NEB HHN SCH (04:10)
[2020-08-02] MEDS: MIDAZOLAM HCL 100 MG in SODIUM CHLORIDE 0.9% 80 ML IV PRN (05:55)
[2020-08-02 06:34] LABS: HEMATOCRIT. 27.5 % (42.0-52.0); HEMOGLOBIN. 9.1 g/dL (14.0-18.0); MEAN CORPUSCULAR HEMOGLOBIN 30.3 pg (28.0-32.0); MEAN CORPUSCULAR VOLUME 91.2 fL (80.0-94.0); MEAN PLATELET VOLUME 7.3 fl (7.4-10.4); PLATELET 247 x1000/uL (130-400); RED BLOOD CELL COUNT 3.01 mill/uL (4.7-6.1); RED CELL DISTRIBUTION WIDTH 13.2 % (11.6-14.6)
[2020-08-02 06:48] LABS: CHLORIDE 104 mEq/L (98-107)
[2020-08-02] MEDS: DOCUSATE SODIUM SUGAR FREE 100MG/10ML UDC NG SCH (09:00)
[2020-08-02] MEDS: ONFI 10 MG PO SCH ×2 (09:00→17:05)
[2020-08-02] MEDS: ENOXAPARIN 30MG/0.3ML SYR SUBCUT SCH ×2 (09:17→21:38)
[2020-08-02] MEDS: LACOSAMIDE 100 MG TABLET PO SCH ×2 (09:17→21:00)
[2020-08-02] MEDS: PANTOPRAZOLE SODIUM 40 MG/VIAL IV SCH (09:17)
[2020-08-02] MEDS: RISPERIDONE 0.5MG TABLET PO SCH (09:17)
[2020-08-02] MEDS: GABAPENTIN 300MG CAPSULE PO SCH ×3 (09:17→17:05)
[2020-08-02] MEDS: MIDODRINE HCL 5MG TABLET PO SCH ×3 (09:18→17:00)
[2020-08-02] MEDS ORDERED: ALBUTEROL 6.7GM HFA INHALER ORI PRN (10:00)
[2020-08-02 11:53] LABS: BG BASE EXCESS 4.9 mmol/L (-2.0-2.0); BG CARBOXYHEMOGLOBIN 0.3 % (0.5-1.5); BG DEOXYHEMOGLOBIN 1.1 % (0.0-5.0); BG FRACTION INSPIRED OXYGEN 99.8; BG HCO3 ACT 31.6 mmol/L (22.0-26.0); BG METHEMOGLOBIN 0.3 % (0.0-1.5); BG OXYGEN SATURATION 98.9 % (92.0-98.5); BG OXYHEMOGLOBIN 98.3 % (94.0-97.0); BG PCO2 58.2 mmHg (35.0-45.0); BG PH 7.353 (7.350-7.450); BG PO2 171.9 mmHg (75.0-100.0); BG SAMPLE SITE RIGHT RADIAL; BG TOTAL HEMOGLOBIN 10.8 g/dL (12.0-18.0); BG VENT MODE MASK - NRB
[2020-08-02 13:08] LABS: PLATELET ESTIMATE NORMAL
[2020-08-02] MEDS: ALBUTEROL 6.7GM HFA INHALER ORI SCH ×2 (13:51→17:35)
[2020-08-02] MEDS: BRIVIACT 100 MG XX SCH ×2 (13:52→21:38)
[2020-08-02] MEDS ORDERED: PROPOFOL 10MG/ML 100ML 100 ML IV PRN (14:15)
[2020-08-02] MEDS: ZONISAMIDE 10 MG/ML PEG SCH (21:38)
[2020-08-02 23:17] LABS: BG BASE EXCESS 4.9 mmol/L (-2.0-2.0); BG CARBOXYHEMOGLOBIN 0.3 % (0.5-1.5); BG FRACTION INSPIRED OXYGEN 100; BG HCO3 ACT 30.3 mmol/L (22.0-26.0); BG METHEMOGLOBIN 0.3 % (0.0-1.5); BG OXYHEMOGLOBIN 97.4 % (94.0-97.0); BG PH 7.401 (7.350-7.450); BG SAMPLE SITE RIGHT RADIAL; BG TOTAL HEMOGLOBIN 9.1 g/dL (12.0-18.0); BG VENT MODE MASK - NRB
[2020-08-03] VITALS (96 sets, daily range): BP systolic 101–173; BP diastolic 16–116
[2020-08-03] MEDS: LACOSAMIDE 100 MG TABLET PO SCH ×3 (01:19→20:31)
[2020-08-03] MEDS: DEXT 5%/0.45% NACL 1000ML 1,000 ML IV SCH ×2 (02:45→18:30)
[2020-08-03 06:08] LABS: CHLORIDE 106 mEq/L (98-107)
[2020-08-03 06:20] LABS: BASOPHILS % 0.7 % (0.0-2.0); EOSINOPHILS % 2.6 % (0.0-5.0); HEMATOCRIT. 30.1 % (42.0-52.0); HEMOGLOBIN. 10.1 g/dL (14.0-18.0); LYMPHOCYTES % 9.3 % (20.0-50.0); MEAN CORPUSCULAR HEMOGLOBIN 30.2 pg (28.0-32.0); MEAN CORPUSCULAR VOLUME 89.5 fL (80.0-94.0); MEAN PLATELET VOLUME 7.3 fl (7.4-10.4); MONOCYTES % 6.5 % (2.0-8.0); NEUTROPHILS % 80.9 % (40.0-76.0); PLATELET 331 x1000/uL (130-400); RED BLOOD CELL COUNT 3.36 mill/uL (4.7-6.1); RED CELL DISTRIBUTION WIDTH 13.1 % (11.6-14.6)
[2020-08-03] MEDS: DOCUSATE SODIUM SUGAR FREE 100MG/10ML UDC NG SCH (08:29)
[2020-08-03] MEDS: ENOXAPARIN 30MG/0.3ML SYR SUBCUT SCH ×2 (08:29→20:31)
[2020-08-03] MEDS: ACETAMINOPHEN 325MG TABLET PO PRN ×2 (08:29→20:53)
[2020-08-03] MEDS: PANTOPRAZOLE SODIUM 40 MG/VIAL IV SCH (08:29)
[2020-08-03] MEDS: RISPERIDONE 0.5MG TABLET PO SCH (08:30)
[2020-08-03] MEDS: MIDODRINE HCL 5MG TABLET PO SCH ×3 (08:30→16:42)
[2020-08-03] MEDS: BRIVIACT 100 MG XX SCH ×2 (08:58→20:31)
[2020-08-03] MEDS: ONFI 10 MG PO SCH ×2 (08:58→16:43)
[2020-08-03 10:18] LABS: BG BASE EXCESS 3.5 mmol/L (-2.0-2.0); BG CARBOXYHEMOGLOBIN 0.3 % (0.5-1.5); BG DEOXYHEMOGLOBIN 1.6 % (0.0-5.0); BG HCO3 ACT 28.5 mmol/L (22.0-26.0); BG METHEMOGLOBIN 0.3 % (0.0-1.5); BG OXYGEN SATURATION 98.4 % (92.0-98.5); BG OXYHEMOGLOBIN 97.8 % (94.0-97.0); BG PCO2 44.7 mmHg (35.0-45.0); BG PH 7.422 (7.350-7.450); BG PO2 132.9 mmHg (75.0-100.0); BG SAMPLE SITE RIGHT RADIAL; BG TOTAL HEMOGLOBIN 10.9 g/dL (12.0-18.0)
[2020-08-03 10:27] LABS: BG VENT MODE NON REB. MSK
[2020-08-03] MEDS: ZONISAMIDE 10 MG/ML PEG SCH (20:31)
[2020-08-04] VITALS (82 sets, daily range): BP systolic 78–154; BP diastolic 18–105
[2020-08-04] MEDS ORDERED: VANCOMYCIN 1,250 MG in SODIUM CHLORIDE 0.9% 250 ML IV SCH (02:00)
[2020-08-04] MEDS: ACETAMINOPHEN 325MG TABLET PO PRN (03:28)
[2020-08-04 06:09] LABS: CHLORIDE 108 mEq/L (98-107)
[2020-08-04] MEDS: BRIVIACT 100 MG XX SCH ×2 (08:40→21:11)
[2020-08-04] MEDS: ONFI 10 MG PO SCH ×2 (08:40→17:21)
[2020-08-04 09:35] LABS: HEMATOCRIT. 30.2 % (42.0-52.0); MEAN CORPUSCULAR HEMOGLOBIN 29.6 pg (28.0-32.0); MEAN CORPUSCULAR VOLUME 89.5 fL (80.0-94.0); MEAN PLATELET VOLUME 7.2 fl (7.4-10.4); PLATELET 382 x1000/uL (130-400); RED BLOOD CELL COUNT 3.38 mill/uL (4.7-6.1); RED CELL DISTRIBUTION WIDTH 13.2 % (11.6-14.6)
[2020-08-04] MEDS: ENOXAPARIN 30MG/0.3ML SYR SUBCUT SCH ×2 (09:56→21:12)
[2020-08-04] MEDS: DOCUSATE SODIUM SUGAR FREE 100MG/10ML UDC NG SCH (10:00)
[2020-08-04] MEDS: PANTOPRAZOLE SODIUM 40 MG/VIAL IV SCH (10:00)
[2020-08-04] MEDS: RISPERIDONE 0.5MG TABLET PO SCH (10:01)
[2020-08-04] MEDS: MIDODRINE HCL 5MG TABLET PO SCH ×3 (10:01→17:20)
[2020-08-04 10:16] LABS: BG BASE EXCESS 1.6 mmol/L (-2.0-2.0); BG CARBOXYHEMOGLOBIN 0.1 % (0.5-1.5); BG DEOXYHEMOGLOBIN 4.3 % (0.0-5.0); BG FRACTION INSPIRED OXYGEN 50; BG HCO3 ACT 25.5 mmol/L (22.0-26.0); BG METHEMOGLOBIN 0.2 % (0.0-1.5); BG OXYGEN SATURATION 95.7 % (92.0-98.5); BG OXYHEMOGLOBIN 95.4 % (94.0-97.0); BG PCO2 37.4 mmHg (35.0-45.0); BG PH 7.451 (7.350-7.450); BG PO2 80.1 mmHg (75.0-100.0); BG SAMPLE SITE LEFT RADIAL; BG TOTAL RESPIRATORY RATE 43 b/min; BG VENT MODE MASK - BIPAP
[2020-08-04 10:49] LABS: PLATELET ESTIMATE NORMAL
[2020-08-04] MEDS: DEXT 5%/0.45% NACL 1000ML 1,000 ML IV SCH ×2 (11:10→21:15)
[2020-08-04] MEDS ORDERED: IPRATROPIUM/ALBUTEROL 0.5-3(2.5)MG/3ML NEB HHN PRN (13:00)
[2020-08-04] MEDS: FENTANYL CITRATE/PF 2,500 MCG in SODIUM CHLORIDE 0.9% 200 ML IV PRN ×2 (14:03→21:19)
[2020-08-04] MEDS: MIDAZOLAM HCL 100 MG in DEXT 5% WATER 80 ML IV PRN ×2 (14:04→19:49)
[2020-08-04] MEDS: IPRATROPIUM/ALBUTEROL 0.5-3(2.5)MG/3ML NEB HHN SCH ×2 (15:33→20:53)
[2020-08-04] MEDS: VANCOMYCIN 750 MG PREMIX 150 ML IV SCH (17:21)
[2020-08-04] MEDS: ZONISAMIDE 10 MG/ML PEG SCH (21:14)
[2020-08-05] VITALS (76 sets, daily range): BP systolic 51–195; BP diastolic 17–136
[2020-08-05] MEDS: MIDAZOLAM HCL 100 MG in DEXT 5% WATER 80 ML IV PRN ×4 (02:06→20:22)
[2020-08-05] MEDS: NOREPINEPHRINE 8 MG in DEXT 5% WATER 242 ML IV PRN (03:48)
[2020-08-05] MEDS: IPRATROPIUM/ALBUTEROL 0.5-3(2.5)MG/3ML NEB HHN SCH ×5 (04:22→20:26)
[2020-08-05] MEDS: ACETAMINOPHEN 325MG TABLET PO PRN (04:46)
[2020-08-05] MEDS: FENTANYL CITRATE/PF 2,500 MCG in SODIUM CHLORIDE 0.9% 200 ML IV PRN ×2 (05:26→15:10)
[2020-08-05] MEDS: VANCOMYCIN 750 MG PREMIX 150 ML IV SCH ×2 (05:48→19:10)
[2020-08-05 05:59] LABS: CHLORIDE 109 mEq/L (98-107)
[2020-08-05 06:05] LABS: BASOPHILS % 1.1 % (0.0-2.0); EOSINOPHILS % 8.1 % (0.0-5.0); HEMATOCRIT. 27.3 % (42.0-52.0); LYMPHOCYTES % 15.9 % (20.0-50.0); MEAN CORPUSCULAR HEMOGLOBIN 29.6 pg (28.0-32.0); MEAN CORPUSCULAR VOLUME 89.8 fL (80.0-94.0); MEAN PLATELET VOLUME 7.3 fl (7.4-10.4); MONOCYTES % 6.6 % (2.0-8.0); NEUTROPHILS % 68.3 % (40.0-76.0); PLATELET 388 x1000/uL (130-400); RED BLOOD CELL COUNT 3.04 mill/uL (4.7-6.1); RED CELL DISTRIBUTION WIDTH 13.5 % (11.6-14.6)
[2020-08-05] MEDS: PANTOPRAZOLE SODIUM 40 MG/VIAL IV SCH (09:37)
[2020-08-05] MEDS: ONFI 10 MG PO SCH ×2 (09:38→09:44)
[2020-08-05] MEDS: DOCUSATE SODIUM SUGAR FREE 100MG/10ML UDC NG SCH (09:38)
[2020-08-05] MEDS: RISPERIDONE 0.5MG TABLET PO SCH (09:40)
[2020-08-05] MEDS: ENOXAPARIN 30MG/0.3ML SYR SUBCUT SCH ×2 (09:40→21:56)
[2020-08-05] MEDS: BRIVIACT 100 MG XX SCH ×2 (09:45→21:57)
[2020-08-05] MEDS: MIDODRINE HCL 5MG TABLET PO SCH ×3 (09:45→17:00)
[2020-08-05 10:45] LABS: BG BASE EXCESS -4.4 mmol/L (-2.0-2.0); BG CARBOXYHEMOGLOBIN 0.5 % (0.5-1.5); BG DEOXYHEMOGLOBIN 10.5 % (0.0-5.0); BG HCO3 ACT 25.8 mmol/L (22.0-26.0); BG METHEMOGLOBIN 0.3 % (0.0-1.5); BG OXYGEN SATURATION 89.4 % (92.0-98.5); BG OXYHEMOGLOBIN 88.7 % (94.0-97.0); BG PCO2 76.7 mmHg (35.0-45.0); BG PH 7.145 (7.350-7.450); BG PO2 64.5 mmHg (75.0-100.0); BG SAMPLE SITE RIGHT RADIAL; BG TOTAL HEMOGLOBIN 12.1 g/dL (12.0-18.0); BG VENT MODE VENT - AC
[2020-08-05] MEDS: PROPOFOL 10MG/ML 100ML 100 ML IV PRN ×3 (11:19→20:22)
[2020-08-05] MEDS: DEXT 5%/0.45% NACL 1000ML 1,000 ML IV SCH ×2 (11:20→23:12)
[2020-08-05] MEDS ORDERED: POTASSIUM CHLORIDE INJ 40 MEQ in DEXT 5% WATER 250 ML IV NR (12:00)
[2020-08-05] MEDS: NOREPINEPHRINE 32 MG in DEXT 5% WATER 218 ML IV PRN ×2 (12:30→20:23)
[2020-08-05] MEDS: ZONISAMIDE 10 MG/ML PEG SCH (21:57)
[2020-08-05] MEDS: VANCOMYCIN 1 G PREMIX 200 ML IV SCH (23:12)
[2020-08-06] VITALS (94 sets, daily range): BP systolic 92–159; BP diastolic 37–83
[2020-08-06] MEDS: IPRATROPIUM/ALBUTEROL 0.5-3(2.5)MG/3ML NEB HHN SCH ×6 (00:23→20:50)
[2020-08-06] MEDS: FENTANYL CITRATE/PF 2,500 MCG in SODIUM CHLORIDE 0.9% 200 ML IV PRN ×2 (01:39→20:48)
[2020-08-06] MEDS: PROPOFOL 10MG/ML 100ML 100 ML IV PRN ×3 (01:43→17:09)
[2020-08-06 05:09] LABS: BASOPHILS % 1.1 % (0.0-2.0); EOSINOPHILS % 10.7 % (0.0-5.0); HEMATOCRIT. 27.1 % (42.0-52.0); HEMOGLOBIN. 9.2 g/dL (14.0-18.0); LYMPHOCYTES % 18.8 % (20.0-50.0); MEAN CORPUSCULAR HEMOGLOBIN 30.1 pg (28.0-32.0); MEAN CORPUSCULAR VOLUME 88.7 fL (80.0-94.0); MEAN PLATELET VOLUME 7.3 fl (7.4-10.4); MONOCYTES % 8.7 % (2.0-8.0); NEUTROPHILS % 60.7 % (40.0-76.0); PLATELET 459 x1000/uL (130-400); RED BLOOD CELL COUNT 3.06 mill/uL (4.7-6.1); RED CELL DISTRIBUTION WIDTH 13.3 % (11.6-14.6)
[2020-08-06 05:22] LABS: CHLORIDE 107 mEq/L (98-107)
[2020-08-06] MEDS: MIDAZOLAM HCL 100 MG in SODIUM CHLORIDE 0.9% 80 ML IV PRN ×2 (06:09→17:13)
[2020-08-06] MEDS: VANCOMYCIN 1 G PREMIX 200 ML IV SCH (06:09)
[2020-08-06] MEDS: NOREPINEPHRINE 32 MG in DEXT 5% WATER 218 ML IV PRN (06:10)
[2020-08-06] MEDS: DOCUSATE SODIUM SUGAR FREE 100MG/10ML UDC NG SCH (08:45)
[2020-08-06] MEDS: PANTOPRAZOLE SODIUM 40 MG/VIAL IV SCH (08:46)
[2020-08-06] MEDS: BRIVIACT 100 MG XX SCH ×2 (08:46→20:05)
[2020-08-06] MEDS: MIDODRINE HCL 5MG TABLET PO SCH ×3 (08:46→17:04)
[2020-08-06] MEDS: ONFI 10 MG PO SCH ×2 (08:46→20:06)
[2020-08-06] MEDS: RISPERIDONE 0.5MG TABLET PO SCH (08:47)
[2020-08-06] MEDS: ENOXAPARIN 30MG/0.3ML SYR SUBCUT SCH (08:47)
[2020-08-06 10:33] LABS: BG BASE EXCESS -2.9 mmol/L (-2.0-2.0); BG CARBOXYHEMOGLOBIN 0.3 % (0.5-1.5); BG DEOXYHEMOGLOBIN 0.5 % (0.0-5.0); BG FRACTION INSPIRED OXYGEN 100; BG HCO3 ACT 23.4 mmol/L (22.0-26.0); BG METHEMOGLOBIN 0.5 % (0.0-1.5); BG OXYGEN SATURATION 99.5 % (92.0-98.5); BG OXYHEMOGLOBIN 98.7 % (94.0-97.0); BG PCO2 47.9 mmHg (35.0-45.0); BG PH 7.306 (7.350-7.450); BG PO2 287.9 mmHg (75.0-100.0); BG SAMPLE SITE RIGHT RADIAL; BG TOTAL RESPIRATORY RATE 30 b/min; BG VENT MODE VENT - AC
[2020-08-06] MEDS: DEXT 5%/0.45% NACL 1000ML 1,000 ML IV SCH (13:55)
[2020-08-06] MEDS ORDERED: ALBUMIN HUMAN 25GM/100ML (25%) IV NR (14:30)
[2020-08-06] MEDS ORDERED: PROPOFOL 10MG/ML 100ML 100 ML IV PRN ×2 (15:30→16:00)
[2020-08-06] MEDS: ZONISAMIDE 10 MG/ML PEG SCH (20:05)
[2020-08-07] VITALS (93 sets, daily range): BP systolic 92–139; BP diastolic 40–79
[2020-08-07] MEDS: IPRATROPIUM/ALBUTEROL 0.5-3(2.5)MG/3ML NEB HHN SCH ×4 (01:40→21:33)
[2020-08-07] MEDS: FENTANYL CITRATE/PF 2,500 MCG in SODIUM CHLORIDE 0.9% 200 ML IV PRN ×3 (02:00→21:18)
[2020-08-07] MEDS: MIDAZOLAM HCL 100 MG in SODIUM CHLORIDE 0.9% 80 ML IV PRN ×3 (02:01→21:19)
[2020-08-07] MEDS: DEXT 5%/0.45% NACL 1000ML 1,000 ML IV SCH ×2 (05:16→15:46)
[2020-08-07 06:17] LABS: HEMATOCRIT. 24.2 % (42.0-52.0); HEMOGLOBIN. 8.2 g/dL (14.0-18.0); MEAN CORPUSCULAR HEMOGLOBIN 30.4 pg (28.0-32.0); MEAN CORPUSCULAR VOLUME 89.5 fL (80.0-94.0); MEAN PLATELET VOLUME 7.5 fl (7.4-10.4); PLATELET 465 x1000/uL (130-400); RED BLOOD CELL COUNT 2.71 mill/uL (4.7-6.1); RED CELL DISTRIBUTION WIDTH 13.3 % (11.6-14.6)
[2020-08-07 06:22] LABS: PHOSPHORUS 4.8 mg/dL (2.5-4.9)
[2020-08-07] MEDS: ONFI 10 MG PO SCH ×2 (09:00→19:01)
[2020-08-07] MEDS: DOCUSATE SODIUM SUGAR FREE 100MG/10ML UDC NG SCH (10:19)
[2020-08-07] MEDS: PANTOPRAZOLE SODIUM 40 MG/VIAL IV SCH (10:19)
[2020-08-07] MEDS: ENOXAPARIN 40MG/0.4ML SYR SUBCUT SCH (10:20)
[2020-08-07] MEDS: BRIVIACT 100 MG XX SCH ×2 (10:21→21:17)
[2020-08-07] MEDS: RISPERIDONE 0.5MG TABLET PO SCH (10:21)
[2020-08-07] MEDS: MIDODRINE HCL 5MG TABLET PO SCH ×3 (10:21→17:00)
[2020-08-07 10:28] LABS: BG BASE EXCESS -1.8 mmol/L (-2.0-2.0); BG CARBOXYHEMOGLOBIN 0.3 % (0.5-1.5); BG DEOXYHEMOGLOBIN 13.8 % (0.0-5.0); BG HCO3 ACT 25.7 mmol/L (22.0-26.0); BG METHEMOGLOBIN 0.3 % (0.0-1.5); BG OXYGEN SATURATION 86.1 % (92.0-98.5); BG OXYHEMOGLOBIN 85.6 % (94.0-97.0); BG PCO2 60.6 mmHg (35.0-45.0); BG PH 7.245 (7.350-7.450); BG PO2 54.2 mmHg (75.0-100.0); BG SAMPLE SITE RIGHT RADIAL; BG TOTAL HEMOGLOBIN 7.8 g/dL (12.0-18.0); BG VENT MODE VENT - AC
[2020-08-07] MEDS ORDERED: POTASSIUM CHLORIDE 20MEQ/PACKET PO NR (13:00)
[2020-08-07 13:42] LABS: HEPATITIS B SURFACE ANTIGEN NEGATIVE
[2020-08-07 14:12] LABS: HEPATITIS A AB IGM NEGATIVE (NEGATIVE)
[2020-08-07 14:28] LABS: PLATELET ESTIMATE INCREASED
[2020-08-07 17:42] LABS: BG BASE EXCESS -0.7 mmol/L (-2.0-2.0); BG CARBOXYHEMOGLOBIN 0.3 % (0.5-1.5); BG HCO3 ACT 25.7 mmol/L (22.0-26.0); BG METHEMOGLOBIN 0.1 % (0.0-1.5); BG OXYHEMOGLOBIN 97.6 % (94.0-97.0); BG PCO2 51.3 mmHg (35.0-45.0); BG PH 7.317 (7.350-7.450); BG PO2 127.1 mmHg (75.0-100.0); BG SAMPLE SITE RIGHT RADIAL; BG TOTAL HEMOGLOBIN 8.4 g/dL (12.0-18.0); BG VENT MODE VENT - AC
[2020-08-07] MEDS: HYDROCORTISONE 1% RECTAL CREAM 30GM PR SCH (21:17)
[2020-08-07] MEDS: ZONISAMIDE 10 MG/ML PEG SCH (21:19)
[2020-08-08] VITALS (95 sets, daily range): BP systolic 97–146; BP diastolic 40–83
[2020-08-08] MEDS: IPRATROPIUM/ALBUTEROL 0.5-3(2.5)MG/3ML NEB HHN SCH ×4 (03:39→23:10)
[2020-08-08 06:01] LABS: HEMATOCRIT. 26.3 % (42.0-52.0); HEMOGLOBIN. 8.7 g/dL (14.0-18.0); LYMPHOCYTES % 10.5 % (20.0-50.0); MEAN CORPUSCULAR HEMOGLOBIN 29.4 pg (28.0-32.0); MEAN PLATELET VOLUME 7.3 fl (7.4-10.4); MONOCYTES % 9.9 % (2.0-8.0); NEUTROPHILS % 69.6 % (40.0-76.0); PLATELET 433 x1000/uL (130-400); RED BLOOD CELL COUNT 2.95 mill/uL (4.7-6.1); RED CELL DISTRIBUTION WIDTH 13.4 % (11.6-14.6)
[2020-08-08] MEDS: MIDAZOLAM HCL 100 MG in SODIUM CHLORIDE 0.9% 80 ML IV PRN ×2 (06:10→16:33)
[2020-08-08] MEDS: FENTANYL CITRATE/PF 2,500 MCG in SODIUM CHLORIDE 0.9% 200 ML IV PRN ×2 (06:11→16:32)
[2020-08-08 06:26] LABS: PHOSPHORUS 3.1 mg/dL (2.5-4.9)
[2020-08-08] MEDS: DEXT 5%/0.45% NACL 1000ML 1,000 ML IV SCH ×2 (07:07→19:13)
[2020-08-08] MEDS: HYDROCORTISONE 1% RECTAL CREAM 30GM PR SCH (09:00)
[2020-08-08] MEDS: ONFI 10 MG PO SCH ×2 (09:00→17:40)
[2020-08-08] MEDS: DOCUSATE SODIUM SUGAR FREE 100MG/10ML UDC NG SCH (09:23)
[2020-08-08] MEDS: PANTOPRAZOLE SODIUM 40 MG/VIAL IV SCH (09:23)
[2020-08-08] MEDS: RISPERIDONE 0.5MG TABLET PO SCH (09:23)
[2020-08-08 09:24] LABS: BG CARBOXYHEMOGLOBIN 0.3 % (0.5-1.5); BG DEOXYHEMOGLOBIN 1.1 % (0.0-5.0); BG HCO3 ACT 23.3 mmol/L (22.0-26.0); BG METHEMOGLOBIN 0.3 % (0.0-1.5); BG OXYGEN SATURATION 98.9 % (92.0-98.5); BG OXYHEMOGLOBIN 98.3 % (94.0-97.0); BG PH 7.362 (7.350-7.450); BG PO2 160.2 mmHg (75.0-100.0); BG SAMPLE SITE RIGHT RADIAL; BG TOTAL HEMOGLOBIN 8.4 g/dL (12.0-18.0); BG VENT MODE VENT - AC
[2020-08-08] MEDS: ENOXAPARIN 40MG/0.4ML SYR SUBCUT SCH (09:26)
[2020-08-08] MEDS: MIDODRINE HCL 5MG TABLET PO SCH ×3 (09:26→17:39)
[2020-08-08] MEDS: BRIVIACT 100 MG XX SCH ×2 (10:50→21:37)
[2020-08-08] MEDS: METOCLOPRAMIDE HCL 10MG/2ML VIAL IV SCH ×3 (12:34→23:26)
[2020-08-08 18:18] LABS: BG BASE EXCESS 0.5 mmol/L (-2.0-2.0); BG CARBOXYHEMOGLOBIN 0.4 % (0.5-1.5); BG DEOXYHEMOGLOBIN 1.5 % (0.0-5.0); BG FRACTION INSPIRED OXYGEN 50; BG HCO3 ACT 25.5 mmol/L (22.0-26.0); BG METHEMOGLOBIN 0.4 % (0.0-1.5); BG OXYGEN SATURATION 98.5 % (92.0-98.5); BG OXYHEMOGLOBIN 97.7 % (94.0-97.0); BG PCO2 42.5 mmHg (35.0-45.0); BG PH 7.396 (7.350-7.450); BG PO2 129.8 mmHg (75.0-100.0); BG SAMPLE SITE RIGHT RADIAL; BG TOTAL HEMOGLOBIN 8.6 g/dL (12.0-18.0); BG TOTAL RESPIRATORY RATE 34 b/min; BG VENT MODE VENT - AC
[2020-08-08] MEDS: ZONISAMIDE 10 MG/ML PEG SCH (21:37)
[2020-08-08] MEDS: VITAMINS A AND D OINT TUBE TOP SCH (21:37)
[2020-08-09] VITALS (93 sets, daily range): BP systolic 85–146; BP diastolic 39–111
[2020-08-09] MEDS: MIDAZOLAM HCL 100 MG in SODIUM CHLORIDE 0.9% 80 ML IV PRN ×2 (00:27→18:32)
[2020-08-09] MEDS: FENTANYL CITRATE/PF 2,500 MCG in SODIUM CHLORIDE 0.9% 200 ML IV PRN ×2 (00:28→18:20)
[2020-08-09] MEDS: IPRATROPIUM/ALBUTEROL 0.5-3(2.5)MG/3ML NEB HHN SCH ×4 (05:15→22:13)
[2020-08-09] MEDS: METOCLOPRAMIDE HCL 10MG/2ML VIAL IV SCH ×3 (05:19→17:35)
[2020-08-09 05:29] LABS: HEMATOCRIT. 23.2 % (42.0-52.0); MEAN CORPUSCULAR HEMOGLOBIN 30.4 pg (28.0-32.0); MEAN CORPUSCULAR VOLUME 87.9 fL (80.0-94.0); PLATELET 477 x1000/uL (130-400); RED BLOOD CELL COUNT 2.64 mill/uL (4.7-6.1); RED CELL DISTRIBUTION WIDTH 13.6 % (11.6-14.6)
[2020-08-09] MEDS: PANTOPRAZOLE SODIUM 40 MG/VIAL IV SCH (08:24)
[2020-08-09] MEDS: DOCUSATE SODIUM SUGAR FREE 100MG/10ML UDC NG SCH (08:24)
[2020-08-09] MEDS: ENOXAPARIN 40MG/0.4ML SYR SUBCUT SCH (08:25)
[2020-08-09] MEDS: MIDODRINE HCL 5MG TABLET PO SCH ×3 (08:25→17:35)
[2020-08-09] MEDS: RISPERIDONE 0.5MG TABLET PO SCH (08:25)
[2020-08-09] MEDS: VITAMINS A AND D OINT TUBE TOP SCH ×2 (08:26→23:00)
[2020-08-09] MEDS ORDERED: POTASSIUM CHLORIDE 20MEQ/PACKET NG SCH (08:45)
[2020-08-09] MEDS: NYSTATIN POWDER 15GM TOP SCH ×3 (09:17→17:36)
[2020-08-09] MEDS: DEXT 5%/0.45% NACL 1000ML 1,000 ML IV SCH (09:17)
[2020-08-09] MEDS: ONFI 10 MG PO SCH ×2 (09:17→17:35)
[2020-08-09] MEDS: BRIVIACT 100 MG XX SCH ×2 (09:17→23:00)
[2020-08-09 09:55] LABS: BG BASE EXCESS 0.5 mmol/L (-2.0-2.0); BG CARBOXYHEMOGLOBIN 0.5 % (0.5-1.5); BG DEOXYHEMOGLOBIN 1.9 % (0.0-5.0); BG FRACTION INSPIRED OXYGEN 50; BG HCO3 ACT 26.5 mmol/L (22.0-26.0); BG METHEMOGLOBIN 0.4 % (0.0-1.5); BG OXYGEN SATURATION 98.1 % (92.0-98.5); BG OXYHEMOGLOBIN 97.2 % (94.0-97.0); BG PCO2 49.7 mmHg (35.0-45.0); BG PH 7.344 (7.350-7.450); BG PO2 114.7 mmHg (75.0-100.0); BG SAMPLE SITE RIGHT RADIAL; BG TOTAL HEMOGLOBIN 8.5 g/dL (12.0-18.0); BG VENT MODE VENT - AC
[2020-08-09 11:23] LABS: NUCLEATED RED BLOOD CELLS 1 /100 WBC; PLATELET ESTIMATE INCREASED
[2020-08-09] MEDS: POLYETHYLENE GLYCOL 3350 (17GM) 1 DOSE PACK NG SCH (12:00)
[2020-08-09] MEDS: LORAZEPAM 2MG/ML CPJ IV PRN (14:20)
[2020-08-09] MEDS: ZONISAMIDE 10 MG/ML PEG SCH (23:00)
[2020-08-10] VITALS (87 sets, daily range): BP systolic 77–182; BP diastolic 35–92
[2020-08-10] MEDS: FENTANYL CITRATE/PF 2,500 MCG in SODIUM CHLORIDE 0.9% 200 ML IV PRN ×3 (01:47→18:04)
[2020-08-10] MEDS: NOREPINEPHRINE 8 MG in DEXT 5% WATER 242 ML IV PRN (02:02)
[2020-08-10] MEDS: MIDAZOLAM HCL 100 MG in SODIUM CHLORIDE 0.9% 80 ML IV PRN ×3 (03:22→22:19)
[2020-08-10] MEDS: IPRATROPIUM/ALBUTEROL 0.5-3(2.5)MG/3ML NEB HHN SCH ×4 (03:26→22:02)
[2020-08-10] MEDS: METOCLOPRAMIDE HCL 10MG/2ML VIAL IV SCH ×4 (05:34→17:59)
[2020-08-10] MEDS: DEXT 5%/0.45% NACL 1000ML 1,000 ML IV SCH (05:34)
[2020-08-10] MEDS: LORAZEPAM 2MG/ML CPJ IV PRN ×3 (05:49→18:00)
[2020-08-10] MEDS: ACETAMINOPHEN 650MG/20.3ML UDC PO PRN ×2 (05:51→09:03)
[2020-08-10 06:09] LABS: HEMATOCRIT. 23.2 % (42.0-52.0); HEMOGLOBIN. 7.8 g/dL (14.0-18.0); MEAN CORPUSCULAR HEMOGLOBIN 29.9 pg (28.0-32.0); MEAN CORPUSCULAR VOLUME 88.2 fL (80.0-94.0); MEAN PLATELET VOLUME 7.3 fl (7.4-10.4); PLATELET 508 x1000/uL (130-400); RED BLOOD CELL COUNT 2.63 mill/uL (4.7-6.1); RED CELL DISTRIBUTION WIDTH 13.6 % (11.6-14.6)
[2020-08-10 07:29] LABS: PHOSPHORUS 3.5 mg/dL (2.5-4.9)
[2020-08-10] MEDS ORDERED: POTASSIUM CHLORIDE 20MEQ/PACKET NG SCH (08:45)
[2020-08-10] MEDS: PANTOPRAZOLE SODIUM 40 MG/VIAL IV SCH (09:03)
[2020-08-10] MEDS: DOCUSATE SODIUM SUGAR FREE 100MG/10ML UDC NG SCH (09:03)
[2020-08-10] MEDS: RISPERIDONE 0.5MG TABLET PO SCH (09:04)
[2020-08-10] MEDS: MIDODRINE HCL 5MG TABLET PO SCH ×3 (09:04→18:05)
[2020-08-10] MEDS: POLYETHYLENE GLYCOL 3350 (17GM) 1 DOSE PACK NG SCH (09:05)
[2020-08-10] MEDS: VITAMINS A AND D OINT TUBE TOP SCH ×2 (09:05→21:00)
[2020-08-10] MEDS: ENOXAPARIN 40MG/0.4ML SYR SUBCUT SCH (09:05)
[2020-08-10] MEDS: NYSTATIN POWDER 15GM TOP SCH ×3 (09:06→18:00)
[2020-08-10] MEDS: ONFI 10 MG PO SCH ×2 (09:31→18:30)
[2020-08-10] MEDS: BRIVIACT 100 MG XX SCH ×2 (09:31→21:00)
[2020-08-10 10:21] LABS: BG BASE EXCESS 0.6 mmol/L (-2.0-2.0); BG CARBOXYHEMOGLOBIN 0.4 % (0.5-1.5); BG DEOXYHEMOGLOBIN 6.2 % (0.0-5.0); BG HCO3 ACT 25.4 mmol/L (22.0-26.0); BG METHEMOGLOBIN 0.4 % (0.0-1.5); BG OXYGEN SATURATION 93.8 % (92.0-98.5); BG PCO2 41.7 mmHg (35.0-45.0); BG PH 7.403 (7.350-7.450); BG SAMPLE SITE RIGHT RADIAL; BG TOTAL HEMOGLOBIN 8.4 g/dL (12.0-18.0); BG VENT MODE VENT - AC
[2020-08-10 10:35] LABS: PLATELET ESTIMATE INCREASED
[2020-08-10] MEDS: BISACODYL 10MG SUPP PR SCH (12:28)
[2020-08-10] MEDS: SENNOSIDES/DOCUSATE SOD 8.6/50MG TABLET NG PRN (12:29)
[2020-08-10] MEDS: ZONISAMIDE 10 MG/ML PEG SCH (21:00)
[2020-08-10] MEDS ORDERED: PHENYTOIN SODIUM 1,000 MG in SODIUM CHLORIDE 0.9% 100 ML IV NR (21:00)
[2020-08-10] MEDS: LACTULOSE 20G/30ML UDC NG SCH (21:03)
[2020-08-11] VITALS (99 sets, daily range): BP systolic 43–162; BP diastolic 21–98
[2020-08-11] MEDS: IPRATROPIUM/ALBUTEROL 0.5-3(2.5)MG/3ML NEB HHN SCH ×5 (01:17→20:33)
[2020-08-11] MEDS: FENTANYL CITRATE/PF 2,500 MCG in SODIUM CHLORIDE 0.9% 200 ML IV PRN ×3 (01:29→19:07)
[2020-08-11] MEDS: METOCLOPRAMIDE HCL 10MG/2ML VIAL IV SCH ×4 (01:29→18:50)
[2020-08-11] MEDS: DEXT 5%/0.45% NACL 1000ML 1,000 ML IV SCH ×2 (01:30→19:08)
[2020-08-11] MEDS: MIDAZOLAM HCL 100 MG in SODIUM CHLORIDE 0.9% 80 ML IV PRN ×2 (04:35→09:04)
[2020-08-11 06:16] LABS: HEMATOCRIT. 25.1 % (42.0-52.0); HEMOGLOBIN. 8.5 g/dL (14.0-18.0); MEAN CORPUSCULAR HEMOGLOBIN 30.1 pg (28.0-32.0); MEAN CORPUSCULAR VOLUME 88.9 fL (80.0-94.0); MEAN PLATELET VOLUME 7.3 fl (7.4-10.4); PLATELET 443 x1000/uL (130-400); RED BLOOD CELL COUNT 2.82 mill/uL (4.7-6.1); RED CELL DISTRIBUTION WIDTH 14.3 % (11.6-14.6)
[2020-08-11 06:29] LABS: PHOSPHORUS 5.3 mg/dL (2.5-4.9)
[2020-08-11] MEDS: DOCUSATE SODIUM SUGAR FREE 100MG/10ML UDC NG SCH (08:54)
[2020-08-11] MEDS: RISPERIDONE 0.5MG TABLET PO SCH (08:54)
[2020-08-11] MEDS: POLYETHYLENE GLYCOL 3350 (17GM) 1 DOSE PACK NG SCH (08:54)
[2020-08-11] MEDS: MIDODRINE HCL 5MG TABLET PO SCH ×3 (08:54→18:51)
[2020-08-11] MEDS: PANTOPRAZOLE SODIUM 40 MG/VIAL IV SCH (08:54)
[2020-08-11] MEDS: ZONISAMIDE 100MG CAPSULE PO SCH (08:55)
[2020-08-11] MEDS: NYSTATIN POWDER 15GM TOP SCH ×3 (08:59→18:50)
[2020-08-11] MEDS: BISACODYL 10MG SUPP PR SCH (09:00)
[2020-08-11] MEDS ORDERED: PROPOFOL 200MG/20ML VIAL IV SCH (10:00)
[2020-08-11 10:18] LABS: BG CARBOXYHEMOGLOBIN 0.5 % (0.5-1.5); BG DEOXYHEMOGLOBIN 5.3 % (0.0-5.0); BG FRACTION INSPIRED OXYGEN 35; BG METHEMOGLOBIN 0.2 % (0.0-1.5); BG OXYGEN SATURATION 94.7 % (92.0-98.5); BG PCO2 42.7 mmHg (35.0-45.0); BG PH 7.386 (7.350-7.450); BG PO2 76.6 mmHg (75.0-100.0); BG SAMPLE SITE RIGHT RADIAL; BG TOTAL HEMOGLOBIN 8.3 g/dL (12.0-18.0); BG VENT MODE VENT - AC
[2020-08-11 10:24] LABS: PLATELET ESTIMATE INCREASED
[2020-08-11] MEDS ORDERED: VANCOMYCIN 1 G PREMIX 200 ML IV NR (11:00)
[2020-08-11] MEDS: BRIVIACT 100 MG XX SCH ×2 (11:45→21:00)
[2020-08-11] MEDS: ONFI 10 MG PO SCH ×2 (11:46→18:50)
[2020-08-11] MEDS: VITAMINS A AND D OINT TUBE TOP SCH ×2 (11:46→21:00)
[2020-08-11] MEDS: LORAZEPAM 2MG/ML CPJ IV PRN ×2 (11:47→18:52)
[2020-08-11] MEDS ORDERED: PROPOFOL 10MG/ML 100ML 100 ML IV PRN (13:15)
[2020-08-11] MEDS ORDERED: PROPOFOL 10MG/ML 100ML 100 ML IV ONE (14:30)
[2020-08-11] MEDS ORDERED: PHENYTOIN SODIUM 500 MG in SODIUM CHLORIDE 0.9% 100 ML IV NR (18:30)
[2020-08-11] MEDS: LACTULOSE 20G/30ML UDC NG SCH (21:17)
[2020-08-11] MEDS: ZONISAMIDE 10 MG/ML PEG SCH (21:18)
[2020-08-12] VITALS (98 sets, daily range): BP systolic 76–139; BP diastolic 35–111
[2020-08-12] MEDS: ACETAMINOPHEN 650MG/20.3ML UDC PO PRN (00:34)
[2020-08-12] MEDS: METOCLOPRAMIDE HCL 10MG/2ML VIAL IV SCH ×5 (00:35→23:32)
[2020-08-12] MEDS: LORAZEPAM 2MG/ML CPJ IV PRN ×8 (00:36→21:44)
[2020-08-12] MEDS: MORPHINE SULFATE 2 MG/ML CPJ (NOT FOR IM USE) IV PRN ×4 (01:21→23:49)
[2020-08-12] MEDS: FENTANYL CITRATE/PF 2,500 MCG in SODIUM CHLORIDE 0.9% 200 ML IV PRN ×3 (02:14→18:34)
[2020-08-12] MEDS: IPRATROPIUM/ALBUTEROL 0.5-3(2.5)MG/3ML NEB HHN SCH ×4 (03:35→21:15)
[2020-08-12 06:18] LABS: PHOSPHORUS 4.8 mg/dL (2.5-4.9)
[2020-08-12 06:19] LABS: HEMATOCRIT. 22.6 % (42.0-52.0); HEMOGLOBIN. 7.6 g/dL (14.0-18.0); MEAN PLATELET VOLUME 7.2 fl (7.4-10.4); PLATELET 453 x1000/uL (130-400); RED BLOOD CELL COUNT 2.54 mill/uL (4.7-6.1); RED CELL DISTRIBUTION WIDTH 14.3 % (11.6-14.6)
[2020-08-12 07:23] LABS: PLATELET ESTIMATE INCREASED
[2020-08-12] MEDS: DOCUSATE SODIUM SUGAR FREE 100MG/10ML UDC NG SCH (08:09)
[2020-08-12] MEDS: PANTOPRAZOLE SODIUM 40 MG/VIAL IV SCH (08:09)
[2020-08-12] MEDS: ZONISAMIDE 100MG CAPSULE PO SCH (08:10)
[2020-08-12] MEDS: MIDODRINE HCL 5MG TABLET PO SCH ×2 (08:10→11:58)
[2020-08-12] MEDS: POLYETHYLENE GLYCOL 3350 (17GM) 1 DOSE PACK NG SCH (08:10)
[2020-08-12] MEDS: RISPERIDONE 0.5MG TABLET PO SCH ×2 (08:10→20:33)
[2020-08-12] MEDS: BISACODYL 10MG SUPP PR SCH (08:11)
[2020-08-12] MEDS: VITAMINS A AND D OINT TUBE TOP SCH ×2 (08:12→20:55)
[2020-08-12] MEDS: NYSTATIN POWDER 15GM TOP SCH ×3 (08:12→18:34)
[2020-08-12] MEDS: BRIVIACT 100 MG XX SCH ×2 (09:43→20:55)
[2020-08-12] MEDS: ONFI 10 MG PO SCH ×2 (09:43→18:35)
[2020-08-12 10:34] LABS: BG BASE EXCESS -1.3 mmol/L (-2.0-2.0); BG DEOXYHEMOGLOBIN 5.5 % (0.0-5.0); BG FRACTION INSPIRED OXYGEN 35; BG METHEMOGLOBIN 0.4 % (0.0-1.5); BG OXYGEN SATURATION 94.4 % (92.0-98.5); BG OXYHEMOGLOBIN 93.1 % (94.0-97.0); BG PCO2 42.4 mmHg (35.0-45.0); BG SAMPLE SITE RIGHT RADIAL; BG TOTAL HEMOGLOBIN 7.8 g/dL (12.0-18.0); BG VENT MODE VENT - AC
[2020-08-12] MEDS ORDERED: SORBITOL 70% SOLN 30ML NG NR (11:45)
[2020-08-12] MEDS: DEXT 5%/0.45% NACL 1000ML 1,000 ML IV SCH (18:31)
[2020-08-12] MEDS: NOREPINEPHRINE 8 MG in DEXT 5% WATER 242 ML IV PRN (18:33)
[2020-08-12] MEDS: ZONISAMIDE 10 MG/ML PEG SCH (20:33)
[2020-08-12] MEDS: LACTULOSE 20G/30ML UDC NG SCH (20:33)
[2020-08-12] MEDS: PHENYTOIN 100 MG/4 ML UDC NG SCH (20:36)
[2020-08-12] MEDS: ACETYLCYSTEINE 100MG/ML 10% VIAL 4ML INH SCH (21:15)
[2020-08-12] MEDS ORDERED: MIDAZOLAM HCL 100 MG in SODIUM CHLORIDE 0.9% 80 ML IV PRN (22:30)
[2020-08-13] VITALS (95 sets, daily range): BP systolic 80–183; BP diastolic 32–100
[2020-08-13] MEDS: FENTANYL CITRATE/PF 2,500 MCG in SODIUM CHLORIDE 0.9% 200 ML IV PRN ×3 (00:27→21:20)
[2020-08-13] MEDS: MIDAZOLAM HCL 100 MG in DEXT 5% WATER 80 ML IV PRN ×3 (00:28→21:22)
[2020-08-13] MEDS: LORAZEPAM 2MG/ML CPJ IV PRN (03:10)
[2020-08-13] MEDS: IPRATROPIUM/ALBUTEROL 0.5-3(2.5)MG/3ML NEB HHN SCH ×4 (03:28→22:11)
[2020-08-13] MEDS: MORPHINE SULFATE 2 MG/ML CPJ (NOT FOR IM USE) IV PRN ×2 (03:32→22:50)
[2020-08-13] MEDS: PROPOFOL 10MG/ML 100ML 100 ML IV PRN ×4 (04:00→23:07)
[2020-08-13] MEDS: ACETYLCYSTEINE 100MG/ML 10% VIAL 4ML INH SCH ×2 (04:01→09:30)
[2020-08-13] MEDS: METOCLOPRAMIDE HCL 10MG/2ML VIAL IV SCH ×3 (05:26→17:13)
[2020-08-13 06:00] LABS: HEMATOCRIT. 22.9 % (42.0-52.0); HEMOGLOBIN. 7.4 g/dL (14.0-18.0); MEAN CORPUSCULAR HEMOGLOBIN 29.1 pg (28.0-32.0); MEAN CORPUSCULAR VOLUME 89.8 fL (80.0-94.0); MEAN PLATELET VOLUME 7.1 fl (7.4-10.4); PLATELET 469 x1000/uL (130-400); RED BLOOD CELL COUNT 2.56 mill/uL (4.7-6.1); RED CELL DISTRIBUTION WIDTH 14.6 % (11.6-14.6)
[2020-08-13 08:51] LABS: PLATELET ESTIMATE INCREASED
[2020-08-13] MEDS: BISACODYL 10MG SUPP PR SCH (09:00)
[2020-08-13] MEDS: POLYETHYLENE GLYCOL 3350 (17GM) 1 DOSE PACK NG SCH (09:12)
[2020-08-13] MEDS: PANTOPRAZOLE SODIUM 40 MG/VIAL IV SCH (09:12)
[2020-08-13] MEDS: NYSTATIN POWDER 15GM TOP SCH ×3 (09:12→17:14)
[2020-08-13] MEDS: ZONISAMIDE 100MG CAPSULE PO SCH ×2 (09:13→22:27)
[2020-08-13] MEDS: RISPERIDONE 0.5MG TABLET PO SCH (09:13)
[2020-08-13] MEDS: DOCUSATE SODIUM SUGAR FREE 100MG/10ML UDC NG SCH (09:15)
[2020-08-13] MEDS: VITAMINS A AND D OINT TUBE TOP SCH (09:20)
[2020-08-13 09:27] LABS: BG BASE EXCESS -1.8 mmol/L (-2.0-2.0); BG CARBOXYHEMOGLOBIN 0.8 % (0.5-1.5); BG DEOXYHEMOGLOBIN 5.6 % (0.0-5.0); BG FRACTION INSPIRED OXYGEN 35; BG HCO3 ACT 24.1 mmol/L (22.0-26.0); BG METHEMOGLOBIN 0.3 % (0.0-1.5); BG OXYGEN SATURATION 94.3 % (92.0-98.5); BG OXYHEMOGLOBIN 93.3 % (94.0-97.0); BG PH 7.328 (7.350-7.450); BG SAMPLE SITE RIGHT RADIAL; BG TOTAL HEMOGLOBIN 8.1 g/dL (12.0-18.0); BG TOTAL RESPIRATORY RATE 20 b/min; BG VENT MODE VENT - AC
[2020-08-13] MEDS: BRIVIACT 100 MG XX SCH ×2 (10:03→22:27)
[2020-08-13] MEDS: ONFI 10 MG PO SCH ×2 (10:03→17:50)
[2020-08-13] MEDS ORDERED: KCL 20MEQ/100ML PREMIX 100 ML IV SCH (13:00)
[2020-08-13] MEDS: DEXT 5%/0.45% NACL 1000ML 1,000 ML IV SCH (16:18)
[2020-08-13] MEDS ORDERED: RISPERIDONE 1MG TABLET PO SCH (17:00)
[2020-08-13] MEDS: LACTULOSE 20G/30ML UDC NG SCH (21:00)
[2020-08-13] MEDS: PHENYTOIN 100 MG/4 ML UDC NG SCH (22:27)
[2020-08-13] MEDS: ZONISAMIDE 10 MG/ML PEG SCH (22:27)
[2020-08-14] VITALS (96 sets, daily range): BP systolic 65–168; BP diastolic 27–109
[2020-08-14] MEDS: METOCLOPRAMIDE HCL 10MG/2ML VIAL IV SCH ×4 (01:39→17:36)
[2020-08-14] MEDS: VITAMINS A AND D OINT TUBE TOP SCH ×3 (01:40→21:27)
[2020-08-14] MEDS: IPRATROPIUM/ALBUTEROL 0.5-3(2.5)MG/3ML NEB HHN SCH ×4 (04:01→20:14)
[2020-08-14] MEDS: ACETYLCYSTEINE 100MG/ML 10% VIAL 4ML INH SCH ×3 (04:01→15:16)
[2020-08-14] MEDS: HALOPERIDOL LACTATE 5MG/ML VIAL IM PRN (06:31)
[2020-08-14 06:49] LABS: BASOPHILS % 0.8 % (0.0-2.0); HEMATOCRIT. 23.9 % (42.0-52.0); HEMOGLOBIN. 7.8 g/dL (14.0-18.0); LYMPHOCYTES % 11.5 % (20.0-50.0); MEAN CORPUSCULAR HEMOGLOBIN 29.4 pg (28.0-32.0); MEAN CORPUSCULAR VOLUME 89.7 fL (80.0-94.0); MEAN PLATELET VOLUME 7.2 fl (7.4-10.4); MONOCYTES % 6.6 % (2.0-8.0); NEUTROPHILS % 78.1 % (40.0-76.0); PLATELET 278 x1000/uL (130-400); RED BLOOD CELL COUNT 2.67 mill/uL (4.7-6.1); RED CELL DISTRIBUTION WIDTH 14.6 % (11.6-14.6)
[2020-08-14] MEDS: MORPHINE SULFATE 2 MG/ML CPJ (NOT FOR IM USE) IV PRN (06:49)
[2020-08-14 06:56] LABS: CHLORIDE 107 mEq/L (98-107)
[2020-08-14 07:01] LABS: PHOSPHORUS 4.5 mg/dL (2.5-4.9)
[2020-08-14] MEDS: PROPOFOL 10MG/ML 100ML 100 ML IV PRN ×3 (07:12→18:12)
[2020-08-14] MEDS: ACETAMINOPHEN 650MG/20.3ML UDC PO PRN ×2 (08:25→17:37)
[2020-08-14] MEDS: MIDAZOLAM HCL 100 MG in DEXT 5% WATER 80 ML IV PRN ×2 (08:26→17:23)
[2020-08-14] MEDS: FENTANYL CITRATE/PF 2,500 MCG in SODIUM CHLORIDE 0.9% 200 ML IV PRN ×2 (08:49→19:44)
[2020-08-14] MEDS: PANTOPRAZOLE SODIUM 40 MG/VIAL IV SCH (09:28)
[2020-08-14] MEDS: POLYETHYLENE GLYCOL 3350 (17GM) 1 DOSE PACK NG SCH (09:29)
[2020-08-14] MEDS: NYSTATIN POWDER 15GM TOP SCH ×3 (09:31→17:24)
[2020-08-14] MEDS: BRIVIACT 100 MG XX SCH ×2 (11:01→21:25)
[2020-08-14] MEDS: ONFI 10 MG PO SCH ×2 (11:02→17:23)
[2020-08-14] MEDS: DEXT 5%/0.45% NACL 1000ML 1,000 ML IV SCH (11:09)
[2020-08-14 13:34] LABS: BG BASE EXCESS -0.6 mmol/L (-2.0-2.0); BG CARBOXYHEMOGLOBIN 1.5 % (0.5-1.5); BG DEOXYHEMOGLOBIN 1.7 % (0.0-5.0); BG FRACTION INSPIRED OXYGEN 35; BG HCO3 ACT 25.2 mmol/L (22.0-26.0); BG METHEMOGLOBIN 0.1 % (0.0-1.5); BG OXYGEN SATURATION 98.3 % (92.0-98.5); BG OXYHEMOGLOBIN 96.7 % (94.0-97.0); BG PCO2 47.2 mmHg (35.0-45.0); BG PH 7.346 (7.350-7.450); BG PO2 120.5 mmHg (75.0-100.0); BG SAMPLE SITE RIGHT RADIAL; BG TOTAL HEMOGLOBIN 9.5 g/dL (12.0-18.0); BG TOTAL RESPIRATORY RATE 20 b/min; BG VENT MODE VENT - AC
[2020-08-14] MEDS: NOREPINEPHRINE 32 MG in DEXT 5% WATER 218 ML IV PRN (13:41)
[2020-08-14] MEDS: DOCUSATE SODIUM SUGAR FREE 100MG/10ML UDC NG SCH (13:58)
[2020-08-14] MEDS: LACTULOSE 20G/30ML UDC NG SCH (21:24)
[2020-08-14] MEDS: PHENYTOIN 100 MG/4 ML UDC NG SCH (21:25)
[2020-08-14] MEDS: ZONISAMIDE 10 MG/ML PEG SCH (21:32)
[2020-08-15] VITALS (96 sets, daily range): BP systolic 79–148; BP diastolic 34–79
[2020-08-15] MEDS: PROPOFOL 10MG/ML 100ML 100 ML IV PRN ×5 (01:50→21:09)
[2020-08-15] MEDS: METOCLOPRAMIDE HCL 10MG/2ML VIAL IV SCH ×4 (02:05→18:08)
[2020-08-15] MEDS: IPRATROPIUM/ALBUTEROL 0.5-3(2.5)MG/3ML NEB HHN SCH ×6 (02:33→20:25)
[2020-08-15 05:00] LABS: HEMOGLOBIN. 9.1 g/dL (14.0-18.0); MEAN CORPUSCULAR HEMOGLOBIN 29.3 pg (28.0-32.0); MEAN PLATELET VOLUME 6.9 fl (7.4-10.4); PLATELET 531 x1000/uL (130-400); RED BLOOD CELL COUNT 3.12 mill/uL (4.7-6.1); RED CELL DISTRIBUTION WIDTH 14.6 % (11.6-14.6)
[2020-08-15] MEDS: MIDAZOLAM HCL 100 MG in DEXT 5% WATER 80 ML IV PRN ×3 (05:17→23:48)
[2020-08-15 05:23] LABS: PHOSPHORUS 4.7 mg/dL (2.5-4.9)
[2020-08-15] MEDS: FENTANYL CITRATE/PF 2,500 MCG in SODIUM CHLORIDE 0.9% 200 ML IV PRN ×2 (06:28→16:10)
[2020-08-15] MEDS: DEXT 5%/0.45% NACL 1000ML 1,000 ML IV SCH (08:00)
[2020-08-15] MEDS: HALOPERIDOL LACTATE 5MG/ML VIAL IM PRN ×2 (08:56→22:23)
[2020-08-15] MEDS: DOCUSATE SODIUM SUGAR FREE 100MG/10ML UDC NG SCH (09:00)
[2020-08-15] MEDS: ACETYLCYSTEINE 100MG/ML 10% VIAL 4ML INH SCH ×3 (09:47→16:45)
[2020-08-15] MEDS: BRIVIACT 100 MG XX SCH ×2 (10:37→22:20)
[2020-08-15] MEDS: ONFI 10 MG PO SCH ×2 (10:37→18:08)
[2020-08-15] MEDS: POLYETHYLENE GLYCOL 3350 (17GM) 1 DOSE PACK NG SCH (10:37)
[2020-08-15] MEDS: NYSTATIN POWDER 15GM TOP SCH ×3 (10:38→18:08)
[2020-08-15] MEDS: VITAMINS A AND D OINT TUBE TOP SCH ×2 (10:38→21:38)
[2020-08-15] MEDS: ZONISAMIDE 100MG CAPSULE PO SCH (10:45)
[2020-08-15 14:34] LABS: PLATELET ESTIMATE INCREASED
[2020-08-15] MEDS: NOREPINEPHRINE 32 MG in DEXT 5% WATER 218 ML IV PRN (16:09)
[2020-08-15] MEDS: LACTULOSE 20G/30ML UDC NG SCH (21:37)
[2020-08-15] MEDS: PHENYTOIN 100 MG/4 ML UDC NG SCH (21:37)
[2020-08-15] MEDS: ZONISAMIDE 10 MG/ML PEG SCH (21:37)
[2020-08-16] VITALS (95 sets, daily range): BP systolic 84–173; BP diastolic 40–134
[2020-08-16] MEDS ORDERED: VANCOMYCIN 1500MG in DEXTROSE 5% WATER 250ML IV NR (00:30)
[2020-08-16] MEDS: METOCLOPRAMIDE HCL 10MG/2ML VIAL IV SCH ×4 (00:51→17:33)
[2020-08-16] MEDS: FENTANYL CITRATE/PF 2,500 MCG in SODIUM CHLORIDE 0.9% 200 ML IV PRN ×2 (03:28→21:31)
[2020-08-16] MEDS: DEXT 5%/0.45% NACL 1000ML 1,000 ML IV SCH (04:00)
[2020-08-16] MEDS: PROPOFOL 10MG/ML 100ML 100 ML IV PRN (04:48)
[2020-08-16 06:23] LABS: CHLORIDE 109 mEq/L (98-107)
[2020-08-16 06:27] LABS: PHOSPHORUS 4.9 mg/dL (2.5-4.9)
[2020-08-16 06:40] LABS: HEMATOCRIT. 23.2 % (42.0-52.0); HEMOGLOBIN. 7.6 g/dL (14.0-18.0); MEAN CORPUSCULAR HEMOGLOBIN 29.2 pg (28.0-32.0); MEAN CORPUSCULAR VOLUME 88.6 fL (80.0-94.0); MEAN PLATELET VOLUME 6.8 fl (7.4-10.4); PLATELET 467 x1000/uL (130-400); RED BLOOD CELL COUNT 2.62 mill/uL (4.7-6.1); RED CELL DISTRIBUTION WIDTH 14.5 % (11.6-14.6)
[2020-08-16] MEDS: MIDAZOLAM HCL 100 MG in DEXT 5% WATER 80 ML IV PRN (09:05)
[2020-08-16] MEDS: ACETYLCYSTEINE 100MG/ML 10% VIAL 4ML INH SCH ×3 (09:17→21:16)
[2020-08-16] MEDS: IPRATROPIUM/ALBUTEROL 0.5-3(2.5)MG/3ML NEB HHN SCH ×2 (09:32→21:17)
[2020-08-16] MEDS: VITAMINS A AND D OINT TUBE TOP SCH ×2 (09:44→21:37)
[2020-08-16] MEDS: NYSTATIN POWDER 15GM TOP SCH ×3 (09:44→17:34)
[2020-08-16] MEDS: ONFI 10 MG PO SCH ×2 (09:47→17:33)
[2020-08-16] MEDS: HALOPERIDOL LACTATE 5MG/ML VIAL IM PRN ×2 (09:54→17:33)
[2020-08-16] MEDS: ZONISAMIDE 100MG CAPSULE PO SCH (09:54)
[2020-08-16] MEDS: POLYETHYLENE GLYCOL 3350 (17GM) 1 DOSE PACK NG SCH (09:54)
[2020-08-16] MEDS: DOCUSATE SODIUM SUGAR FREE 100MG/10ML UDC NG SCH (09:55)
[2020-08-16] MEDS: BRIVIACT 100 MG XX SCH ×2 (10:09→21:34)
[2020-08-16 10:58] LABS: PLATELET ESTIMATE NORMAL
[2020-08-16 11:06] LABS: BG BASE EXCESS -0.2 mmol/L (-2.0-2.0); BG CARBOXYHEMOGLOBIN 0.8 % (0.5-1.5); BG DEOXYHEMOGLOBIN 0.3 % (0.0-5.0); BG FRACTION INSPIRED OXYGEN 70; BG HCO3 ACT 24.7 mmol/L (22.0-26.0); BG METHEMOGLOBIN 0.5 % (0.0-1.5); BG OXYGEN SATURATION 99.7 % (92.0-98.5); BG OXYHEMOGLOBIN 98.4 % (94.0-97.0); BG PCO2 41.4 mmHg (35.0-45.0); BG PH 7.394 (7.350-7.450); BG PO2 214.2 mmHg (75.0-100.0); BG SAMPLE SITE RIGHT RADIAL; BG TOTAL HEMOGLOBIN 8.1 g/dL (12.0-18.0); BG TOTAL RESPIRATORY RATE 20 b/min; BG VENT MODE VENT - AC
[2020-08-16] MEDS: ARIPIPRAZOLE 5MG TABLET PO SCH (17:33)
[2020-08-16] MEDS: PHENYTOIN 100 MG/4 ML UDC NG SCH (21:34)
[2020-08-16] MEDS: ZONISAMIDE 10 MG/ML PEG SCH (21:34)
[2020-08-16] MEDS: LACTULOSE 20G/30ML UDC NG SCH (21:35)
[2020-08-17] VITALS (61 sets, daily range): BP systolic 97–138; BP diastolic 47–79
[2020-08-17] MEDS: IPRATROPIUM/ALBUTEROL 0.5-3(2.5)MG/3ML NEB HHN SCH ×5 (00:15→21:41)
[2020-08-17] MEDS: METOCLOPRAMIDE HCL 10MG/2ML VIAL IV SCH ×4 (01:33→18:56)
[2020-08-17] MEDS: MEROPENEM 500 MG in SODIUM CHLORIDE 0.9% 50 ML IV SCH ×2 (01:33→09:16)
[2020-08-17] MEDS: HALOPERIDOL LACTATE 5MG/ML VIAL IM PRN ×2 (01:33→09:16)
[2020-08-17] MEDS: DEXT 5%/0.45% NACL 1000ML 1,000 ML IV SCH ×2 (01:34→21:25)
[2020-08-17 06:16] LABS: HEMATOCRIT. 22.7 % (42.0-52.0); HEMOGLOBIN. 7.5 g/dL (14.0-18.0); MEAN CORPUSCULAR HEMOGLOBIN 29.3 pg (28.0-32.0); MEAN CORPUSCULAR VOLUME 88.4 fL (80.0-94.0); MEAN PLATELET VOLUME 6.8 fl (7.4-10.4); PLATELET 425 x1000/uL (130-400); RED BLOOD CELL COUNT 2.57 mill/uL (4.7-6.1); RED CELL DISTRIBUTION WIDTH 14.3 % (11.6-14.6)
[2020-08-17 06:33] LABS: CHLORIDE 107 mEq/L (98-107)
[2020-08-17] MEDS: MIDAZOLAM HCL 100 MG in DEXT 5% WATER 80 ML IV PRN (06:44)
[2020-08-17] MEDS: POLYETHYLENE GLYCOL 3350 (17GM) 1 DOSE PACK NG SCH (09:00)
[2020-08-17] MEDS: DOCUSATE SODIUM SUGAR FREE 100MG/10ML UDC NG SCH (09:00)
[2020-08-17] MEDS: ZONISAMIDE 100MG CAPSULE PO SCH (09:16)
[2020-08-17] MEDS: ARIPIPRAZOLE 5MG TABLET PO SCH (09:16)
[2020-08-17] MEDS: VITAMINS A AND D OINT TUBE TOP SCH ×2 (09:17→21:24)
[2020-08-17] MEDS: NYSTATIN POWDER 15GM TOP SCH ×3 (09:17→18:56)
[2020-08-17] MEDS ORDERED: POTASSIUM CHLORIDE INJ 40 MEQ in DEXT 5% WATER 250 ML IV ONE (09:30)
[2020-08-17] MEDS: ONFI 10 MG PO SCH ×2 (09:43→19:23)
[2020-08-17] MEDS: BRIVIACT 100 MG XX SCH ×2 (09:44→22:13)
[2020-08-17 10:24] LABS: BG BASE EXCESS 3.1 mmol/L (-2.0-2.0); BG CARBOXYHEMOGLOBIN 0.1 % (0.5-1.5); BG DEOXYHEMOGLOBIN 0.8 % (0.0-5.0); BG FRACTION INSPIRED OXYGEN 60; BG HCO3 ACT 27.6 mmol/L (22.0-26.0); BG METHEMOGLOBIN 0.5 % (0.0-1.5); BG OXYGEN SATURATION 99.2 % (92.0-98.5); BG OXYHEMOGLOBIN 98.6 % (94.0-97.0); BG PCO2 42.5 mmHg (35.0-45.0); BG PH 7.431 (7.350-7.450); BG PO2 244.9 mmHg (75.0-100.0); BG SAMPLE SITE LEFT RADIAL; BG TOTAL HEMOGLOBIN 7.5 g/dL (12.0-18.0); BG TOTAL RESPIRATORY RATE 23 b/min; BG VENT MODE VENT - AC
[2020-08-17] MEDS ORDERED: VANCOMYCIN 750 MG PREMIX 150 ML IV SCH (11:00)
[2020-08-17] MEDS: PANTOPRAZOLE SODIUM 40 MG/VIAL IV SCH (12:50)
[2020-08-17 14:14] LABS: PLATELET ESTIMATE SLIGHTLY INCREASED
[2020-08-17] MEDS ORDERED: MEROPENEM 1000MG in NORMAL SALINE 100ML IV SCH (18:00)
[2020-08-17] MEDS: ONDANSETRON HCL 4MG/2ML INJ IV PRN (19:07)
[2020-08-17] MEDS: PHENYTOIN 100 MG/4 ML UDC NG SCH (21:22)
[2020-08-17] MEDS: LACTULOSE 20G/30ML UDC NG SCH (21:22)
[2020-08-17] MEDS: ACETYLCYSTEINE 100MG/ML 10% VIAL 4ML INH SCH (22:00)
[2020-08-17] MEDS: MEROPENEM 1000MG in NORMAL SALINE 100ML IV SCH (22:13)
[2020-08-18] VITALS (12 sets, daily range): BP systolic 115–132; BP diastolic 61–79
[2020-08-18] MEDS: METOCLOPRAMIDE HCL 10MG/2ML VIAL IV SCH ×5 (00:29→23:10)
[2020-08-18] MEDS: PANTOPRAZOLE SODIUM 40 MG/VIAL IV SCH ×3 (00:29→23:10)
[2020-08-18] MEDS: ONDANSETRON HCL 4MG/2ML INJ IV PRN ×3 (00:29→14:46)
[2020-08-18] MEDS: IPRATROPIUM/ALBUTEROL 0.5-3(2.5)MG/3ML NEB HHN SCH ×5 (01:59→20:20)
[2020-08-18] MEDS ORDERED: VANCOMYCIN 750 MG PREMIX 150 ML IV SCH (04:00)
[2020-08-18] MEDS: MEROPENEM 1000MG in NORMAL SALINE 100ML IV SCH ×3 (05:53→22:21)
[2020-08-18 06:44] LABS: BASOPHILS % 0.5 % (0.0-2.0); EOSINOPHILS % 1.2 % (0.0-5.0); HEMATOCRIT. 21.8 % (42.0-52.0); HEMOGLOBIN. 7.2 g/dL (14.0-18.0); MEAN CORPUSCULAR HEMOGLOBIN 29.2 pg (28.0-32.0); MEAN CORPUSCULAR VOLUME 88.1 fL (80.0-94.0); MONOCYTES % 7.2 % (2.0-8.0); NEUTROPHILS % 81.1 % (40.0-76.0); PLATELET 504 x1000/uL (130-400); RED BLOOD CELL COUNT 2.47 mill/uL (4.7-6.1)
[2020-08-18 06:51] LABS: INR 1.1; PROTHROMBIN TIME 11.3 sec (9.6-11.0)
[2020-08-18 07:03] LABS: CHLORIDE 109 mEq/L (98-107)
[2020-08-18] MEDS: POLYETHYLENE GLYCOL 3350 (17GM) 1 DOSE PACK NG SCH (08:59)
[2020-08-18] MEDS: DOCUSATE SODIUM SUGAR FREE 100MG/10ML UDC NG SCH (08:59)
[2020-08-18] MEDS: ARIPIPRAZOLE 5MG TABLET PO SCH (09:00)
[2020-08-18] MEDS: ZONISAMIDE 100MG CAPSULE PO SCH (09:04)
[2020-08-18] MEDS: NYSTATIN POWDER 15GM TOP SCH ×3 (09:04→17:22)
[2020-08-18] MEDS: VITAMINS A AND D OINT TUBE TOP SCH ×2 (09:05→21:46)
[2020-08-18] MEDS: ACETAMINOPHEN 650MG/20.3ML UDC PO PRN (09:36)
[2020-08-18] MEDS ORDERED: POTASSIUM CHLORIDE INJ 40 MEQ in DEXT 5% WATER 250 ML IV ONE (10:00)
[2020-08-18] MEDS: ONFI 10 MG PO SCH ×2 (12:40→18:26)
[2020-08-18] MEDS: BRIVIACT 100 MG XX SCH ×2 (12:40→22:21)
[2020-08-18] MEDS ORDERED: MIDAZOLAM HCL 5 MG/5 ML VIAL ONE (14:47)
[2020-08-18] MEDS ORDERED: FENTANYL CITRATE/PF 50MCG/ML 2ML VIAL ONE (14:48)
[2020-08-18] MEDS ORDERED: MIDAZOLAM HCL 5 MG/5 ML VIAL IV PRN (15:15)
[2020-08-18] MEDS: LACTULOSE 20G/30ML UDC NG SCH (21:44)
[2020-08-18] MEDS: PHENYTOIN 100 MG/4 ML UDC NG SCH (21:44)
[2020-08-18] MEDS: DEXT 5%/0.45% NACL 1000ML 1,000 ML IV SCH (22:30)
[2020-08-19] VITALS (13 sets, daily range): BP systolic 115–136; BP diastolic 61–82
[2020-08-19] MEDS: IPRATROPIUM/ALBUTEROL 0.5-3(2.5)MG/3ML NEB HHN SCH ×6 (03:07→21:50)
[2020-08-19] MEDS: METOCLOPRAMIDE HCL 10MG/2ML VIAL IV SCH ×3 (05:39→17:18)
[2020-08-19] MEDS: MEROPENEM 1000MG in NORMAL SALINE 100ML IV SCH ×3 (05:41→20:37)
[2020-08-19 06:30] LABS: HEMATOCRIT. 22.9 % (42.0-52.0); HEMOGLOBIN. 7.7 g/dL (14.0-18.0); MEAN CORPUSCULAR HEMOGLOBIN 29.3 pg (28.0-32.0); MEAN CORPUSCULAR VOLUME 87.2 fL (80.0-94.0); PLATELET 592 x1000/uL (130-400); RED BLOOD CELL COUNT 2.63 mill/uL (4.7-6.1); RED CELL DISTRIBUTION WIDTH 14.3 % (11.6-14.6)
[2020-08-19 06:38] LABS: CHLORIDE 111 mEq/L (98-107)
[2020-08-19 06:47] LABS: PHOSPHORUS 2.9 mg/dL (2.5-4.9)
[2020-08-19] MEDS: DOCUSATE SODIUM SUGAR FREE 100MG/10ML UDC NG SCH (09:00)
[2020-08-19] MEDS: POLYETHYLENE GLYCOL 3350 (17GM) 1 DOSE PACK NG SCH (09:00)
[2020-08-19 09:49] LABS: BG BASE EXCESS -3.4 mmol/L (-2.0-2.0); BG DEOXYHEMOGLOBIN 0.8 % (0.0-5.0); BG FRACTION INSPIRED OXYGEN 50; BG METHEMOGLOBIN 0.1 % (0.0-1.5); BG OXYGEN SATURATION 99.2 % (92.0-98.5); BG OXYHEMOGLOBIN 99.1 % (94.0-97.0); BG PH 7.397 (7.350-7.450); BG PO2 200.4 mmHg (75.0-100.0); BG SAMPLE SITE RIGHT RADIAL; BG TOTAL HEMOGLOBIN 8.3 g/dL (12.0-18.0); BG VENT MODE VENT - AC
[2020-08-19] MEDS: ZONISAMIDE 100MG CAPSULE PO SCH (10:04)
[2020-08-19] MEDS: ARIPIPRAZOLE 5MG TABLET PO SCH (10:04)
[2020-08-19] MEDS: ONFI 10 MG PO SCH ×2 (10:04→17:18)
[2020-08-19] MEDS: BRIVIACT 100 MG XX SCH ×2 (10:04→22:26)
[2020-08-19] MEDS: NYSTATIN POWDER 15GM TOP SCH ×3 (10:05→17:19)
[2020-08-19] MEDS: VITAMINS A AND D OINT TUBE TOP SCH ×2 (10:06→20:38)
[2020-08-19] MEDS: LORAZEPAM 2MG/ML CPJ IM PRN (10:47)
[2020-08-19] MEDS ORDERED: POTASSIUM CHLORIDE INJ 40 MEQ in DEXT 5% WATER 250 ML IV NR (11:00)
[2020-08-19] MEDS: PANTOPRAZOLE SODIUM 40 MG/VIAL IV SCH (12:06)
[2020-08-19 13:23] LABS: PLATELET ESTIMATE INCREASED
[2020-08-19] MEDS: SENNOSIDES/DOCUSATE SOD 8.6/50MG TABLET NG PRN (20:37)
[2020-08-19] MEDS: LACTULOSE 20G/30ML UDC NG SCH (20:37)
[2020-08-19] MEDS: PHENYTOIN 100 MG/4 ML UDC NG SCH (20:38)
[2020-08-20] VITALS (12 sets, daily range): BP systolic 120–145; BP diastolic 62–78
[2020-08-20] MEDS: METOCLOPRAMIDE HCL 10MG/2ML VIAL IV SCH ×4 (00:55→18:00)
[2020-08-20] MEDS: IPRATROPIUM/ALBUTEROL 0.5-3(2.5)MG/3ML NEB HHN SCH ×5 (01:20→16:25)
[2020-08-20] MEDS: PANTOPRAZOLE SODIUM 40 MG/VIAL IV SCH ×2 (01:23→12:52)
[2020-08-20] MEDS: DEXT 5%/0.45% NACL 1000ML 1,000 ML IV SCH ×2 (01:35→09:25)
[2020-08-20] MEDS: MEROPENEM 1000MG in NORMAL SALINE 100ML IV SCH ×2 (05:45→16:57)
[2020-08-20 06:47] LABS: HEMATOCRIT. 22.4 % (42.0-52.0); HEMOGLOBIN. 7.3 g/dL (14.0-18.0); MEAN CORPUSCULAR HEMOGLOBIN 28.6 pg (28.0-32.0); MEAN CORPUSCULAR VOLUME 87.2 fL (80.0-94.0); MEAN PLATELET VOLUME 6.7 fl (7.4-10.4); PLATELET 569 x1000/uL (130-400); RED BLOOD CELL COUNT 2.57 mill/uL (4.7-6.1); RED CELL DISTRIBUTION WIDTH 14.2 % (11.6-14.6)
[2020-08-20] MEDS: POLYETHYLENE GLYCOL 3350 (17GM) 1 DOSE PACK NG SCH (09:10)
[2020-08-20] MEDS: DOCUSATE SODIUM SUGAR FREE 100MG/10ML UDC NG SCH (09:10)
[2020-08-20] MEDS: NYSTATIN POWDER 15GM TOP SCH ×3 (09:18→17:00)
[2020-08-20] MEDS: ARIPIPRAZOLE 5MG TABLET PO SCH (09:18)
[2020-08-20] MEDS: ZONISAMIDE 100MG CAPSULE PO SCH (09:23)
[2020-08-20] MEDS: VITAMINS A AND D OINT TUBE TOP SCH (09:28)
[2020-08-20 09:29] LABS: CHLORIDE 108 mEq/L (98-107)
[2020-08-20 09:34] LABS: PHOSPHORUS 2.7 mg/dL (2.5-4.9)
[2020-08-20] MEDS: ONFI 10 MG PO SCH ×2 (10:37→17:00)
[2020-08-20] MEDS: BRIVIACT 100 MG XX SCH (10:37)
[2020-08-20] MEDS ORDERED: POTASSIUM CHLORIDE INJ 40 MEQ in DEXT 5% WATER 250 ML IV NR (12:00)
[2020-08-20 14:01] LABS: PLATELET ESTIMATE INCREASED
[2020-08-20] MEDS: LORAZEPAM 2MG/ML CPJ IM PRN (16:57)
== END 2020-08-20 19:42 | DRG 3 ==
LOC: ER 00:27 → MICUSO 03:37 → EDBEDREQ 03:42 → EDBEDREQTM 03:42 → 8WST 07-06 20:35 → MICUSO 07-17 10:24 → 5EST 08-17 17:45
PROVIDERS: ADMIT Internal Medicine; ATTEND Internal Medicine
PROC: XW13325 Transfusion of Convalescent Plasma (Nonautologous) into Peripheral Vein, Percutaneous Approach, New Technology Group 5 (ICD-10-PCS; 2020-07-15)
PROC: 0BH17EZ Insertion of Endotracheal Airway into Trachea, Via Natural or Artificial Opening (ICD-10-PCS; 2020-07-17)
PROC: 5A1955Z Respiratory Ventilation, Greater than 96 Consecutive Hours (ICD-10-PCS; 2020-07-17)
PROC: 02HV33Z Insertion of Infusion Device into Superior Vena Cava, Percutaneous Approach (ICD-10-PCS; 2020-07-17)
PROC: B548ZZA Ultrasonography of Superior Vena Cava, Guidance (ICD-10-PCS; 2020-07-17)
PROC: 5A1955Z Respiratory Ventilation, Greater than 96 Consecutive Hours (ICD-10-PCS; principal; 2020-08-04)
PROC: 0BH17EZ Insertion of Endotracheal Airway into Trachea, Via Natural or Artificial Opening (ICD-10-PCS; 2020-08-04)
PROC: 5A09357 Assistance with Respiratory Ventilation, Less than 24 Consecutive Hours, Continuous Positive Airway Pressure (ICD-10-PCS; 2020-08-04)
PROC: 0B110F4 Bypass Trachea to Cutaneous with Tracheostomy Device, Open Approach (ICD-10-PCS; 2020-08-11)
PROC: 0GBJ0ZZ Excision of Thyroid Gland Isthmus, Open Approach (ICD-10-PCS; 2020-08-11)
PROC: 0DH68UZ Insertion of Feeding Device into Stomach, Via Natural or Artificial Opening Endoscopic (ICD-10-PCS; 2020-08-18)
DX: A41.51 Sepsis due to Escherichia coli [E. coli] (principal); U07.1 COVID-19; E43 Unspecified severe protein-calorie malnutrition; J12.82 Pneumonia due to coronavirus disease 2019; J15.212 Pneumonia due to Methicillin resistant Staphylococcus aureus; J80 Acute respiratory distress syndrome; K72.00 Acute and subacute hepatic failure without coma; N17.0 Acute kidney failure with tubular necrosis; R65.21 Severe sepsis with septic shock; E72.20 Disorder of urea cycle metabolism, unspecified; G40.834 Dravet syndrome, intractable, without status epilepticus; E87.2 Acidosis; B37.49 Other urogenital candidiasis; E87.0 Hyperosmolality and hypernatremia; E87.4 Mixed disorder of acid-base balance; Z99.11 Dependence on respirator [ventilator] status; R65.20 Severe sepsis without septic shock; G40.909 Epilepsy, unspecified, not intractable, without status epilepticus; D72.810 Lymphocytopenia; F79 Unspecified intellectual disabilities; M41.9 Scoliosis, unspecified; D64.9 Anemia, unspecified; D69.6 Thrombocytopenia, unspecified; E87.6 Hypokalemia; I13.10 Hypertensive heart and chronic kidney disease without heart failure, with stage 1 through stage 4 chronic kidney disease, or unspecified chronic kidney disease; K44.9 Diaphragmatic hernia without obstruction or gangrene; K59.00 Constipation, unspecified; K76.0 Fatty (change of) liver, not elsewhere classified; N18.9 Chronic kidney disease, unspecified; R00.1 Bradycardia, unspecified; N28.1 Cyst of kidney, acquired; Z68.33 Body mass index [BMI] 33.0-33.9, adult; R13.12 Dysphagia, oropharyngeal phase; Z78.1 Physical restraint status; Z79.01 Long term (current) use of anticoagulants; Z88.0 Allergy status to penicillin; Z93.1 Gastrostomy status; Z79.899 Other long term (current) drug therapy; Z79.1 Long term (current) use of non-steroidal anti-inflammatories (NSAID)
CPT/HCPCS: 36415; 36600; 71045; 74018; 76700; 76705; 76770; 76937; 80048; 80053; 80076; 80185; 80202; 80339; 81003; 82040; 82043; 82140; 82375; 82550; 82570; 82728; 82805; 82962; 83605; 83615; 83735; 83880; 84100; 84145; 84300; 84439; 84443; 84478; 84484; 85025; 85379; 85651; 86140; 86705; 86709; 86803; 86850; 86900; 86927; 87070; 87077; 87106; 87186; 87340; 87426; 87635; 87804; 93005; 93306; 94003; 94640; 94660; 96365; 99291; A6261; C1725; C9113; J0330; J0461; J0696; J1100; J1165; J1265; J1630; J1650; J1953; J1956; J2060; J2185; J2250; J2270; J2405; J2704; J2765; J3010; J3370; J3480; J3490; J7030; J7040; J7042; J7050; J7060; J7070; J7608; P9017; P9047; U0003; A4315

== ENCOUNTER 2021-08-05 19:50 | Inpatient (IN) | payer BC, MEDICARE, MEDICAID ==
[~2021-08-05] VITALS: Ht 165.1 cm; Wt 78.5 kg
[~2021-08-05 19:50] MED LIST changes: +BRIV100T MT; -BRIV50TA PO; +CALC-36 PO; +CLOB10TA3 PO; +CLOB20TA3 PO; -CLON0.5T4 PO; +FLUT15.844 BOTHNSTRLS; +FURO20TA4 MT; -GABA-529 PO; +LACT10SO30 MT; -LACT10SO6 PO; -ONFI PO; +SODI51CR MT
[2021-08-05 22:13] LABS: BASOPHILS % 0.3 % (0.0-2.0); HEMATOCRIT. 41.5 % (42.0-52.0); HEMOGLOBIN. 13.5 g/dL (14.0-18.0); LYMPHOCYTES % 11.1 % (20.0-50.0); MEAN CORPUSCULAR HEMOGLOBIN 28.2 pg (28.0-32.0); MEAN CORPUSCULAR VOLUME 86.7 fL (80.0-94.0); MEAN PLATELET VOLUME 7.6 fl (7.4-10.4); MONOCYTES % 6.2 % (2.0-8.0); NEUTROPHILS % 80.4 % (40.0-76.0); PLATELET 389 x1000/uL (130-400); RED BLOOD CELL COUNT 4.79 mill/uL (4.7-6.1); RED CELL DISTRIBUTION WIDTH 13.5 % (11.6-14.6)
[2021-08-05 22:21] LABS: CHLORIDE 105 mEq/L (98-107)
[2021-08-05] MEDS ORDERED: IPRATROPIUM BROMIDE (0.02%) 0.5MG/2.5ML NEB HHN STA (23:21)
[2021-08-05] MEDS: ALBUTEROL (0.083%) 2.5MG/3ML NEB HHN SCH (23:39)
[2021-08-06] MEDS ORDERED: LEVOFLOXACIN 750MG PREMIX 150 ML IV ONE (02:45)
[2021-08-06] MEDS ORDERED: IPRATROPIUM BROMIDE (0.02%) 0.5MG/2.5ML NEB HHN STA (05:14)
[2021-08-06] MEDS ORDERED: ALBUTEROL (0.083%) 2.5MG/3ML NEB HHN SCH (05:30)
[2021-08-06] MEDS: ALBUTEROL (0.083%) 2.5MG/3ML NEB HHN SCH ×2 (05:58→07:30)
[2021-08-06 06:34] LABS: BASOPHILS % 0.2 % (0.0-2.0); EOSINOPHILS % 0.6 % (0.0-5.0); HEMATOCRIT. 40.7 % (42.0-52.0); HEMOGLOBIN. 13.3 g/dL (14.0-18.0); LYMPHOCYTES % 9.3 % (20.0-50.0); MEAN CORPUSCULAR HEMOGLOBIN 28.6 pg (28.0-32.0); MEAN CORPUSCULAR VOLUME 87.9 fL (80.0-94.0); MEAN PLATELET VOLUME 7.4 fl (7.4-10.4); MONOCYTES % 7.7 % (2.0-8.0); NEUTROPHILS % 82.2 % (40.0-76.0); PLATELET 378 x1000/uL (130-400); RED BLOOD CELL COUNT 4.63 mill/uL (4.7-6.1); RED CELL DISTRIBUTION WIDTH 13.1 % (11.6-14.6)
[2021-08-06 06:38] LABS: CHLORIDE 105 mEq/L (98-107)
[2021-08-06] MEDS: IPRATROPIUM BROMIDE (0.02%) 0.5MG/2.5ML NEB HHN SCH ×3 (09:19→16:34)
[2021-08-06] MEDS: ZONISAMIDE 100MG CAPSULE PO SCH (11:23)
[2021-08-06] MEDS: ENOXAPARIN 40MG/0.4ML SYR SUBCUT SCH (11:30)
[2021-08-06] MEDS ORDERED: PIPERACILLIN/TAZ 3.375G PREMIX 50 ML IV ONE (17:15)
[2021-08-06 19:58] LABS: CLARITY URINE CLEAR (CLEAR); COLOR URINE YELLOW (YELLOW); KETONES URINE 2+ (NEGATIVE); LEUKOCYTE ESTERASE URINE NEGATIVE (NEGATIVE); NITRITE URINE NEGATIVE (NEGATIVE); OCCULT BLOOD URINE TRACE (NEGATIVE); PROTEIN URINE 1+ (NEGATIVE); SPECIFIC GRAVITY URINE 1.022 (1.005-1.030)
[2021-08-06 20:55] VITALS: BP 103/58
[2021-08-06 22:00] VITALS: BP 103/58
[2021-08-06] MEDS ORDERED: BENZONATATE 100MG CAPSULE PO PRN (22:30)
[2021-08-06] MEDS: GUAIFENESIN-DM 200MG-20MG/10ML UDC PO PRN (23:26)
[2021-08-06] MEDS: GABAPENTIN 300MG CAPSULE GT SCH (23:26)
[2021-08-07] VITALS (12 sets, daily range): BP systolic 95–128; BP diastolic 64–80
[2021-08-07] MEDS ORDERED: LEVOFLOXACIN 750MG PREMIX 150 ML IV NR
[2021-08-07] MEDS: IPRATROPIUM BROMIDE (0.02%) 0.5MG/2.5ML NEB HHN SCH ×6 (00:13→20:00)
[2021-08-07] MEDS: GUAIFENESIN-DM 200MG-20MG/10ML UDC PO PRN ×2 (06:24→22:48)
[2021-08-07] MEDS: GABAPENTIN 300MG CAPSULE GT SCH ×3 (06:24→22:48)
[2021-08-07 06:47] LABS: BASOPHILS % 0.4 % (0.0-2.0); EOSINOPHILS % 0.8 % (0.0-5.0); HEMATOCRIT. 39.6 % (42.0-52.0); HEMOGLOBIN. 13.6 g/dL (14.0-18.0); LYMPHOCYTES % 12.5 % (20.0-50.0); MEAN CORPUSCULAR HEMOGLOBIN 29.9 pg (28.0-32.0); MEAN CORPUSCULAR VOLUME 87.2 fL (80.0-94.0); MEAN PLATELET VOLUME 8.4 fl (7.4-10.4); MONOCYTES % 9.1 % (2.0-8.0); NEUTROPHILS % 77.2 % (40.0-76.0); PLATELET 379 x1000/uL (130-400); RED BLOOD CELL COUNT 4.54 mill/uL (4.7-6.1)
[2021-08-07 06:58] LABS: CHLORIDE 104 mEq/L (98-107)
[2021-08-07] MEDS: FERROUS SULFATE 325MG TABLET PO SCH ×3 (08:58→17:47)
[2021-08-07] MEDS: ENOXAPARIN 40MG/0.4ML SYR SUBCUT SCH (08:59)
[2021-08-07] MEDS: ZONISAMIDE 100MG CAPSULE PO SCH (09:09)
[2021-08-08] VITALS (12 sets, daily range): BP systolic 101–156; BP diastolic 51–89
[2021-08-08] MEDS: IPRATROPIUM BROMIDE (0.02%) 0.5MG/2.5ML NEB HHN SCH ×6 (00:45→20:36)
[2021-08-08] MEDS: GUAIFENESIN-DM 200MG-20MG/10ML UDC PO PRN ×2 (05:11→22:50)
[2021-08-08] MEDS: GABAPENTIN 300MG CAPSULE GT SCH ×3 (05:11→22:50)
[2021-08-08 07:26] LABS: BASOPHILS % 0.5 % (0.0-2.0); EOSINOPHILS % 1.4 % (0.0-5.0); HEMATOCRIT. 39.1 % (42.0-52.0); HEMOGLOBIN. 13.5 g/dL (14.0-18.0); LYMPHOCYTES % 16.1 % (20.0-50.0); MEAN CORPUSCULAR HEMOGLOBIN 29.8 pg (28.0-32.0); MEAN CORPUSCULAR VOLUME 86.3 fL (80.0-94.0); MEAN PLATELET VOLUME 8.4 fl (7.4-10.4); MONOCYTES % 8.6 % (2.0-8.0); NEUTROPHILS % 73.4 % (40.0-76.0); PLATELET 362 x1000/uL (130-400); RED BLOOD CELL COUNT 4.52 mill/uL (4.7-6.1); RED CELL DISTRIBUTION WIDTH 13.4 % (11.6-14.6)
[2021-08-08 07:37] LABS: CHLORIDE 106 mEq/L (98-107)
[2021-08-08] MEDS: FERROUS SULFATE 325MG TABLET PO SCH ×3 (08:39→17:54)
[2021-08-08] MEDS: ZONISAMIDE 100MG CAPSULE PO SCH (08:39)
[2021-08-08] MEDS: ENOXAPARIN 40MG/0.4ML SYR SUBCUT SCH (08:39)
[2021-08-08] MEDS: ACETAMINOPHEN 650MG/20.3ML UDC GT PRN (16:41)
[2021-08-09] VITALS (11 sets, daily range): BP systolic 120–146; BP diastolic 61–89
[2021-08-09] MEDS: IPRATROPIUM BROMIDE (0.02%) 0.5MG/2.5ML NEB HHN SCH ×6 (00:44→20:18)
[2021-08-09] MEDS: GUAIFENESIN-DM 200MG-20MG/10ML UDC PO PRN (05:26)
[2021-08-09] MEDS: GABAPENTIN 300MG CAPSULE GT SCH ×2 (05:26→13:18)
[2021-08-09] MEDS: ENOXAPARIN 40MG/0.4ML SYR SUBCUT SCH (09:04)
[2021-08-09] MEDS: FERROUS SULFATE 325MG TABLET PO SCH ×3 (09:04→18:00)
[2021-08-09] MEDS: ZONISAMIDE 100MG CAPSULE PO SCH (09:04)
[2021-08-09] MEDS ORDERED: VANCOMYCIN 1500MG in DEXTROSE 5% WATER 250ML IV NR (11:00)
[2021-08-09] MEDS: ACETAMINOPHEN 650MG/20.3ML UDC GT PRN (11:31)
[2021-08-09] MEDS: AZTREONAM 2 GM in DEXT 5% WATER 100 ML IV SCH ×2 (13:18→21:18)
[2021-08-09] MEDS: GABAPENTIN SOLN 300MG/6ML UDC GT SCH (22:18)
[2021-08-09] MEDS: VANCOMYCIN 1 G PREMIX 200 ML IV SCH (23:29)
[2021-08-10] VITALS (12 sets, daily range): BP systolic 106–126; BP diastolic 59–96
[2021-08-10] MEDS: IPRATROPIUM BROMIDE (0.02%) 0.5MG/2.5ML NEB HHN SCH ×6 (00:40→21:25)
[2021-08-10] MEDS: AZTREONAM 2 GM in DEXT 5% WATER 100 ML IV SCH ×2 (05:55→13:03)
[2021-08-10] MEDS: GABAPENTIN SOLN 300MG/6ML UDC GT SCH ×3 (05:55→21:19)
[2021-08-10] MEDS: FERROUS SULFATE 325MG TABLET PO SCH ×3 (08:37→18:32)
[2021-08-10] MEDS: ZONISAMIDE 100MG/10ML ORAL SYR GT SCH (08:38)
[2021-08-10] MEDS: ENOXAPARIN 40MG/0.4ML SYR SUBCUT SCH (08:38)
[2021-08-10] MEDS: VANCOMYCIN 1 G PREMIX 200 ML IV SCH ×2 (10:38→23:28)
[2021-08-10] MEDS: LEVETIRACETAM 500MG PREMIX 100 ML IV SCH ×2 (14:51→22:13)
[2021-08-10] MEDS: PHENYTOIN SODIUM 100MG/2ML VIAL IV SCH ×2 (14:51→21:19)
[2021-08-10] MEDS: MEROPENEM 1,000 MG in SODIUM CHLORIDE 0.9% 100 ML IV SCH (21:19)
[2021-08-11] VITALS (12 sets, daily range): BP systolic 100–121; BP diastolic 52–69
[2021-08-11] MEDS: IPRATROPIUM BROMIDE (0.02%) 0.5MG/2.5ML NEB HHN SCH ×6 (02:26→20:19)
[2021-08-11] MEDS: GABAPENTIN SOLN 300MG/6ML UDC GT SCH ×3 (05:45→22:07)
[2021-08-11] MEDS: PHENYTOIN SODIUM 100MG/2ML VIAL IV SCH (05:45)
[2021-08-11] MEDS: MEROPENEM 1,000 MG in SODIUM CHLORIDE 0.9% 100 ML IV SCH ×3 (05:45→21:25)
[2021-08-11 08:05] LABS: CHLORIDE 107 mEq/L (98-107)
[2021-08-11] MEDS: FERROUS SULFATE 325MG TABLET PO SCH ×3 (08:16→17:28)
[2021-08-11] MEDS: ZONISAMIDE 100MG/10ML ORAL SYR GT SCH (08:16)
[2021-08-11] MEDS: ENOXAPARIN 40MG/0.4ML SYR SUBCUT SCH (08:16)
[2021-08-11] MEDS: LEVETIRACETAM 500MG PREMIX 100 ML IV SCH ×2 (08:17→20:00)
[2021-08-11] MEDS ORDERED: POTASSIUM CHLORIDE 20MEQ TABLET SR PO SCH (10:45)
[2021-08-11] MEDS: CLOBAZAM 10 MG GT SCH ×2 (17:00→17:28)
[2021-08-11] MEDS: VANCOMYCIN 1 G PREMIX 200 ML IV SCH (18:13)
[2021-08-11] MEDS: BRIVIACT 100 MG GT SCH (20:01)
[2021-08-12] VITALS (12 sets, daily range): BP systolic 93–123; BP diastolic 48–101
[2021-08-12] MEDS: IPRATROPIUM BROMIDE (0.02%) 0.5MG/2.5ML NEB HHN SCH ×4 (04:08→21:30)
[2021-08-12] MEDS: GABAPENTIN SOLN 300MG/6ML UDC GT SCH ×3 (05:15→21:06)
[2021-08-12] MEDS: MEROPENEM 1,000 MG in SODIUM CHLORIDE 0.9% 100 ML IV SCH ×3 (05:15→21:06)
[2021-08-12] MEDS: BRIVIACT 100 MG GT SCH ×3 (08:03→21:07)
[2021-08-12] MEDS: ENOXAPARIN 40MG/0.4ML SYR SUBCUT SCH (08:04)
[2021-08-12] MEDS: ZONISAMIDE 100MG/10ML ORAL SYR GT SCH (08:04)
[2021-08-12] MEDS: LEVETIRACETAM 500MG PREMIX 100 ML IV SCH (08:04)
[2021-08-12] MEDS: FERROUS SULFATE 325MG TABLET PO SCH ×3 (08:05→17:05)
[2021-08-12] MEDS ORDERED: IOHEXOL-350 100 ML BOTTLE ONE (10:18)
[2021-08-12] MEDS: VANCOMYCIN 1 G PREMIX 200 ML IV SCH (12:33)
[2021-08-12] MEDS: CLOBAZAM 10 MG GT SCH (16:30)
[2021-08-12 18:02] LABS: CHLORIDE 108 mEq/L (98-107)
[2021-08-13] VITALS (12 sets, daily range): BP systolic 104–136; BP diastolic 61–87
[2021-08-13] MEDS: IPRATROPIUM BROMIDE (0.02%) 0.5MG/2.5ML NEB HHN SCH ×6 (01:03→20:38)
[2021-08-13] MEDS: MEROPENEM 1,000 MG in SODIUM CHLORIDE 0.9% 100 ML IV SCH ×3 (05:57→21:14)
[2021-08-13] MEDS: GABAPENTIN SOLN 300MG/6ML UDC GT SCH ×3 (05:57→21:14)
[2021-08-13] MEDS: VANCOMYCIN 1 G PREMIX 200 ML IV SCH (07:54)
[2021-08-13] MEDS: FERROUS SULFATE 325MG TABLET PO SCH ×3 (09:07→17:43)
[2021-08-13] MEDS: CLOBAZAM 10 MG GT SCH ×2 (09:07→17:43)
[2021-08-13] MEDS: ENOXAPARIN 40MG/0.4ML SYR SUBCUT SCH (09:08)
[2021-08-13] MEDS: ZONISAMIDE 100MG/10ML ORAL SYR GT SCH (10:16)
[2021-08-13] MEDS: BRIVIACT 100 MG GT SCH (20:33)
[2021-08-13] MEDS: GUAIFENESIN-DM 200MG-20MG/10ML UDC PO PRN (21:26)
[2021-08-14] VITALS (12 sets, daily range): BP systolic 92–139; BP diastolic 54–78
[2021-08-14] MEDS: IPRATROPIUM BROMIDE (0.02%) 0.5MG/2.5ML NEB HHN SCH ×5 (00:28→19:54)
[2021-08-14] MEDS: VANCOMYCIN 1 G PREMIX 200 ML IV SCH ×2 (01:09→18:02)
[2021-08-14] MEDS: MEROPENEM 1,000 MG in SODIUM CHLORIDE 0.9% 100 ML IV SCH ×3 (05:01→21:22)
[2021-08-14] MEDS: GABAPENTIN SOLN 300MG/6ML UDC GT SCH ×3 (05:01→21:22)
[2021-08-14 06:09] LABS: BASOPHILS % 0.7 % (0.0-2.0); EOSINOPHILS % 3.3 % (0.0-5.0); HEMOGLOBIN. 12.5 g/dL (14.0-18.0); MEAN CORPUSCULAR HEMOGLOBIN 29.6 pg (28.0-32.0); MEAN CORPUSCULAR VOLUME 87.9 fL (80.0-94.0); MEAN PLATELET VOLUME 8.5 fl (7.4-10.4); MONOCYTES % 7.4 % (2.0-8.0); NEUTROPHILS % 72.6 % (40.0-76.0); PLATELET 313 x1000/uL (130-400); RED BLOOD CELL COUNT 4.21 mill/uL (4.7-6.1); RED CELL DISTRIBUTION WIDTH 13.1 % (11.6-14.6)
[2021-08-14 06:44] LABS: CHLORIDE 108 mEq/L (98-107)
[2021-08-14] MEDS: FERROUS SULFATE 325MG TABLET PO SCH ×3 (08:39→17:55)
[2021-08-14] MEDS: ENOXAPARIN 40MG/0.4ML SYR SUBCUT SCH (08:39)
[2021-08-14] MEDS: ZONISAMIDE 100MG/10ML ORAL SYR GT SCH (08:40)
[2021-08-14] MEDS: BRIVIACT 100 MG GT SCH ×2 (08:40→21:22)
[2021-08-14] MEDS: CLOBAZAM 10 MG GT SCH ×2 (08:40→17:56)
[2021-08-14] MEDS: GUAIFENESIN 200MG/10ML SUGAR FREE UDC PO SCH ×3 (15:17→23:12)
[2021-08-15] VITALS (12 sets, daily range): BP systolic 96–126; BP diastolic 58–97
[2021-08-15] MEDS: IPRATROPIUM BROMIDE (0.02%) 0.5MG/2.5ML NEB HHN SCH ×6 (00:18→21:14)
[2021-08-15] MEDS: ACETYLCYSTEINE 100MG/ML 10% VIAL 4ML INH SCH ×3 (00:18→16:34)
[2021-08-15] MEDS: GABAPENTIN SOLN 300MG/6ML UDC GT SCH ×3 (05:20→21:43)
[2021-08-15] MEDS: GUAIFENESIN 200MG/10ML SUGAR FREE UDC PO SCH ×3 (05:20→17:26)
[2021-08-15] MEDS: MEROPENEM 1,000 MG in SODIUM CHLORIDE 0.9% 100 ML IV SCH ×3 (05:20→21:44)
[2021-08-15] MEDS: CLOBAZAM 10 MG GT SCH ×2 (08:35→17:25)
[2021-08-15] MEDS: ZONISAMIDE 100MG/10ML ORAL SYR GT SCH (08:35)
[2021-08-15] MEDS: ENOXAPARIN 40MG/0.4ML SYR SUBCUT SCH (08:35)
[2021-08-15] MEDS: FERROUS SULFATE 325MG TABLET PO SCH ×3 (08:35→17:26)
[2021-08-15] MEDS: BRIVIACT 100 MG GT SCH ×2 (08:36→20:37)
[2021-08-15] MEDS: VANCOMYCIN 1 G PREMIX 200 ML IV SCH (13:07)
[2021-08-16] VITALS (12 sets, daily range): BP systolic 93–149; BP diastolic 30–88
[2021-08-16] MEDS: IPRATROPIUM BROMIDE (0.02%) 0.5MG/2.5ML NEB HHN SCH ×6 (01:03→21:12)
[2021-08-16] MEDS: ACETYLCYSTEINE 100MG/ML 10% VIAL 4ML INH SCH ×3 (01:03→16:13)
[2021-08-16] MEDS: GUAIFENESIN 200MG/10ML SUGAR FREE UDC PO SCH ×5 (02:04→23:55)
[2021-08-16] MEDS: MEROPENEM 1,000 MG in SODIUM CHLORIDE 0.9% 100 ML IV SCH ×3 (05:12→21:03)
[2021-08-16] MEDS: GABAPENTIN SOLN 300MG/6ML UDC GT SCH ×3 (05:13→21:02)
[2021-08-16] MEDS: VANCOMYCIN 1 G PREMIX 200 ML IV SCH ×2 (05:31→23:58)
[2021-08-16 05:40] LABS: CHLORIDE 106 mEq/L (98-107)
[2021-08-16 07:07] LABS: BASOPHILS % 0.8 % (0.0-2.0); EOSINOPHILS % 4.4 % (0.0-5.0); HEMATOCRIT. 37.8 % (42.0-52.0); HEMOGLOBIN. 12.8 g/dL (14.0-18.0); LYMPHOCYTES % 27.7 % (20.0-50.0); MEAN CORPUSCULAR HEMOGLOBIN 29.3 pg (28.0-32.0); MEAN CORPUSCULAR VOLUME 86.3 fL (80.0-94.0); MEAN PLATELET VOLUME 8.3 fl (7.4-10.4); MONOCYTES % 7.3 % (2.0-8.0); NEUTROPHILS % 59.8 % (40.0-76.0); PLATELET 331 x1000/uL (130-400); RED BLOOD CELL COUNT 4.38 mill/uL (4.7-6.1); RED CELL DISTRIBUTION WIDTH 13.4 % (11.6-14.6)
[2021-08-16] MEDS: FERROUS SULFATE 325MG TABLET PO SCH ×3 (08:00→17:48)
[2021-08-16] MEDS: BRIVIACT 100 MG GT SCH (09:00)
[2021-08-16] MEDS: CLOBAZAM 10 MG GT SCH ×2 (09:00→17:00)
[2021-08-16] MEDS: ZONISAMIDE 100MG/10ML ORAL SYR GT SCH (09:00)
[2021-08-16] MEDS: ENOXAPARIN 40MG/0.4ML SYR SUBCUT SCH (11:26)
[2021-08-16 19:21] LABS: TOTAL IRON BINDING CAPACITY 176 ug/dL (250-450)
[2021-08-17] VITALS (10 sets, daily range): BP systolic 90–151; BP diastolic 51–109
[2021-08-17] MEDS: IPRATROPIUM BROMIDE (0.02%) 0.5MG/2.5ML NEB HHN SCH ×6 (01:05→20:58)
[2021-08-17] MEDS: ACETYLCYSTEINE 100MG/ML 10% VIAL 4ML INH SCH ×3 (01:05→16:03)
[2021-08-17] MEDS: GABAPENTIN SOLN 300MG/6ML UDC GT SCH ×3 (05:22→21:49)
[2021-08-17] MEDS: GUAIFENESIN 200MG/10ML SUGAR FREE UDC PO SCH ×4 (05:22→23:29)
[2021-08-17] MEDS: MEROPENEM 1,000 MG in SODIUM CHLORIDE 0.9% 100 ML IV SCH ×3 (05:22→21:23)
[2021-08-17 06:42] LABS: BASOPHILS % 0.4 % (0.0-2.0); EOSINOPHILS % 1.6 % (0.0-5.0); HEMATOCRIT. 39.2 % (42.0-52.0); HEMOGLOBIN. 13.4 g/dL (14.0-18.0); LYMPHOCYTES % 8.8 % (20.0-50.0); MEAN CORPUSCULAR HEMOGLOBIN 29.9 pg (28.0-32.0); MEAN CORPUSCULAR VOLUME 87.4 fL (80.0-94.0); MEAN PLATELET VOLUME 8.6 fl (7.4-10.4); MONOCYTES % 7.3 % (2.0-8.0); NEUTROPHILS % 81.9 % (40.0-76.0); PLATELET 330 x1000/uL (130-400); RED BLOOD CELL COUNT 4.49 mill/uL (4.7-6.1); RED CELL DISTRIBUTION WIDTH 13.5 % (11.6-14.6)
[2021-08-17 06:50] LABS: CHLORIDE 105 mEq/L (98-107)
[2021-08-17] MEDS: ZONISAMIDE 100MG/10ML ORAL SYR GT SCH (09:50)
[2021-08-17] MEDS: ENOXAPARIN 40MG/0.4ML SYR SUBCUT SCH (09:50)
[2021-08-17] MEDS: BRIVIACT 100 MG GT SCH ×2 (09:51→19:46)
[2021-08-17] MEDS: PANTOPRAZOLE SODIUM 40 MG/VIAL IV SCH ×2 (09:51→18:13)
[2021-08-17] MEDS: FERROUS SULFATE 325MG TABLET PO SCH ×3 (09:51→18:13)
[2021-08-17] MEDS: CLOBAZAM 10 MG GT SCH ×2 (09:52→17:00)
[2021-08-17] MEDS ORDERED: LORAZEPAM 2MG/ML CPJ IV PRN (10:30)
[2021-08-17] MEDS: LORAZEPAM 2MG/ML CPJ IV PRN (12:29)
[2021-08-17] MEDS: VANCOMYCIN 1 G PREMIX 200 ML IV SCH (19:41)
[2021-08-18] VITALS (12 sets, daily range): BP systolic 96–117; BP diastolic 53–80
[2021-08-18] MEDS: IPRATROPIUM BROMIDE (0.02%) 0.5MG/2.5ML NEB HHN SCH ×5 (00:52→15:55)
[2021-08-18] MEDS: GABAPENTIN SOLN 300MG/6ML UDC GT SCH ×2 (05:22→13:06)
[2021-08-18] MEDS: GUAIFENESIN 200MG/10ML SUGAR FREE UDC PO SCH ×3 (05:22→18:03)
[2021-08-18 06:47] LABS: BASOPHILS % 0.5 % (0.0-2.0); EOSINOPHILS % 1.4 % (0.0-5.0); HEMATOCRIT. 36.5 % (42.0-52.0); HEMOGLOBIN. 12.8 g/dL (14.0-18.0); LYMPHOCYTES % 20.4 % (20.0-50.0); MEAN CORPUSCULAR HEMOGLOBIN 30.1 pg (28.0-32.0); MEAN CORPUSCULAR VOLUME 86.1 fL (80.0-94.0); MEAN PLATELET VOLUME 8.6 fl (7.4-10.4); NEUTROPHILS % 68.7 % (40.0-76.0); PLATELET 307 x1000/uL (130-400); RED BLOOD CELL COUNT 4.24 mill/uL (4.7-6.1); RED CELL DISTRIBUTION WIDTH 13.5 % (11.6-14.6)
[2021-08-18 07:05] LABS: CHLORIDE 105 mEq/L (98-107)
[2021-08-18] MEDS: BRIVIACT 100 MG GT SCH (07:56)
[2021-08-18] MEDS: FERROUS SULFATE 325MG TABLET PO SCH ×3 (07:56→18:03)
[2021-08-18] MEDS: CLOBAZAM 10 MG GT SCH ×2 (07:56→18:03)
[2021-08-18] MEDS: ZONISAMIDE 100MG/10ML ORAL SYR GT SCH (07:57)
[2021-08-18] MEDS: PANTOPRAZOLE SODIUM 40 MG/VIAL IV SCH ×2 (07:57→18:02)
[2021-08-18] MEDS: ACETYLCYSTEINE 100MG/ML 10% VIAL 4ML INH SCH ×2 (08:52→15:56)
[2021-08-18] MEDS: ENOXAPARIN 40MG/0.4ML SYR SUBCUT SCH (12:41)
[2021-08-18] MEDS: LORAZEPAM 2MG/ML CPJ IV PRN (18:19)
== END 2021-08-19 00:42 | DRG 871 ==
LOC: ER 19:50 → EDBEDREQ 08-06 03:02 → ENRESERV 08-06 20:15 → 5EST 08-06 22:41
PROVIDERS: ADMIT Internal Medicine; ATTEND Internal Medicine
PROC: 4A10X4Z Monitoring of Central Nervous Electrical Activity, External Approach (ICD-10-PCS; principal; 2021-08-11)
PROC: 06HY33Z Insertion of Infusion Device into Lower Vein, Percutaneous Approach (ICD-10-PCS; 2021-08-11)
PROC: B54MZZA Ultrasonography of Right Upper Extremity Veins, Guidance (ICD-10-PCS; 2021-08-11)
DX: A41.02 Sepsis due to Methicillin resistant Staphylococcus aureus (principal); L89.154 Pressure ulcer of sacral region, stage 4; J96.21 Acute and chronic respiratory failure with hypoxia; J15.5 Pneumonia due to Escherichia coli; J15.212 Pneumonia due to Methicillin resistant Staphylococcus aureus; F84.0 Autistic disorder; G40.834 Dravet syndrome, intractable, without status epilepticus; A41.51 Sepsis due to Escherichia coli [E. coli]; G40.909 Epilepsy, unspecified, not intractable, without status epilepticus; I10 Essential (primary) hypertension; R13.10 Dysphagia, unspecified; L89.216 Pressure-induced deep tissue damage of right hip; Z20.822 Contact with and (suspected) exposure to COVID-19; K80.20 Calculus of gallbladder without cholecystitis without obstruction; D64.9 Anemia, unspecified; F79 Unspecified intellectual disabilities; Z93.0 Tracheostomy status; Z88.0 Allergy status to penicillin; Z79.899 Other long term (current) drug therapy; Z79.1 Long term (current) use of non-steroidal anti-inflammatories (NSAID); Z93.1 Gastrostomy status
CPT/HCPCS: 36415; 71045; 71275; 76937; 80048; 80053; 80076; 80202; 81003; 82040; 82607; 82728; 82746; 83540; 83550; 83605; 83880; 84134; 84145; 84443; 84484; 85025; 85044; 85379; 87070; 87077; 87102; 87107; 87186; 87420; 87426; 87804; 93005; 93970; 94640; 96365; 96366; 96372; 99285; A6261; C9113; C9803; J1165; J1650; J1953; J1956; J2060; J2185; J3370; J3490; J7040; J7050; J7060; J7070; J7608; Q9967; U0003; U0005

== ENCOUNTER 2024-05-25 13:07 | Inpatient (IN) | payer BC, MEDICARE, MEDICAID ==
[~2024-05-25] VITALS: Ht 170.2 cm; Wt 73.0 kg
[~2024-05-25 13:07] MED LIST changes: -CALC-36 PO; -CLOB10TA3 PO; +CLOB10TA4 PO; -CLOB20TA3 PO; +CLOB20TA4 PO; -D-ME473S8 PO; +FERROUS SULFATE 300MG/5ML UDC PO SCH; -LACT10SO30 MT; +LACT10SO81 MT; -TOPUD PO
[2024-05-25] MEDS: ACETAMINOPHEN 650MG SUPP PR STA (13:16)
[2024-05-25] MEDS ORDERED: VANCOMYCIN 1G PREMIX 200 ML IV ONE (13:30)
[2024-05-25] MEDS: SODIUM CHLORIDE 0.9% (SEPSIS BOLUS) IV ONE (13:41)
[2024-05-25] MEDS: VANCOMYCIN 1000MG/250ML 250 ML IV SCH (14:08)
[2024-05-25 14:11] LABS: CARBON DIOXIDE 19 mEq/L (21-32); CHLORIDE 104 mEq/L (98-107); SODIUM 139 mEq/L (136-145)
[2024-05-25 14:12] LABS: CALCIUM 9.6 mg/dL (8.7-10.4)
[2024-05-25 14:17] LABS: CREATININE 1.5 mg/dL (0.6-1.3); GLUCOSE 123 mg/dL (70-105); UREA NITROGEN BLOOD 17 mg/dL (9-23)
[2024-05-25 14:18] LABS: ALANINE AMINOTRANSFERASE 18 IU/L (10-49); ASPARTATE AMINOTRANSFERASE 24 IU/L (<34)
[2024-05-25 14:19] LABS: BILIRUBIN TOTAL 0.2 mg/dL (0.1-1.0); PROTEIN TOTAL 7.2 g/dL (6.0-8.3)
[2024-05-25 14:21] LABS: BILIRUBIN DIRECT < 0.1 mg/dL (<=3.0)
[2024-05-25 14:26] LABS: LACTIC ACID 10.3 mmol/L (0.4-2.0)
[2024-05-25 15:00] LABS: PROTHROMBIN TIME 10.9 sec (9.6-11.0)
[2024-05-25] MEDS: LORAZEPAM 2MG/ML INJ IV ONE (15:11)
[2024-05-25 16:14] LABS: LACTIC ACID 3.7 mmol/L (0.4-2.0)
[2024-05-25 16:35] LABS: DIFFERENTIAL COMMENT 1; HEMATOCRIT. 28.7 % (42.0-52.0); HEMOGLOBIN. 9.2 g/dL (14.0-18.0); MEAN CORPUSCULAR HEMOGLOBIN 27.9 pg (28.0-32.0); MEAN CORPUSCULAR HGB CONC 31.9 g/dL (31.0-37.0); MEAN CORPUSCULAR VOLUME 87.4 fL (80.0-94.0); MEAN PLATELET VOLUME 8.3 fl (7.4-10.4); PLATELET 332 x1000/uL (130-400); RED BLOOD CELL COUNT 3.28 mill/uL (4.7-6.1); RED CELL DISTRIBUTION WIDTH 13.8 % (11.6-14.6); WHITE BLOOD COUNT 20.1 x1000/uL (4.5-11.0)
[2024-05-25] MEDS ORDERED: LACOSAMIDE 100MG TABLET PO SCH (17:30)
[2024-05-25 17:39] LABS: PLATELET ESTIMATE NORMAL
[2024-05-25] MEDS ORDERED: FERR220S9 PO (17:43)
[2024-05-25] MEDS ORDERED: DOCU50LI25 PO (17:43)
[2024-05-25] MEDS ORDERED: CALC-38 PO (17:43)
[2024-05-25] MEDS ORDERED: POLY510P31 PO (17:43)
[2024-05-25] MEDS ORDERED: ACETAMINOPHEN 325MG TABLET PO PRN (17:45)
[2024-05-25] MEDS: DEXT 5%/0.9% NACL 1,000 ML IV SCH (17:52)
[2024-05-25] MEDS: METRONIDAZOLE 500 MG PREMIX 100 ML IV SCH (17:52)
[2024-05-25] MEDS: CEFEPIME 2GM/100ML 100 ML IV SCH (17:52)
[2024-05-25] MEDS ORDERED: NOREPINEPHRINE 8MG/250ML PMX 250 ML IV PRN (20:30)
[2024-05-25] MEDS: SODIUM CHLORIDE 0.9% 500 ML IV ONE (20:43)
[2024-05-25] MEDS ORDERED: CEFEPIME HCL 1000MG VIAL IM SCH (21:00)
[2024-05-25] MEDS ORDERED: LACTULOSE ENEMA 1,000ML BOTTLE PR SCH (21:00)
[2024-05-25] MEDS: SODIUM CHLORIDE 10% FOR INH 15ML NEB INH NR (21:09)
[2024-05-25 21:21] VITALS: PULSE 99; RESP 20
[2024-05-25] MEDS: FUROSEMIDE 20MG TABLET PO SCH (21:43)
[2024-05-25 22:34] LABS: CLARITY URINE CLEAR (CLEAR); COLOR URINE YELLOW (YELLOW); GLUCOSE URINE NEGATIVE (NEGATIVE); KETONES URINE NEGATIVE (NEGATIVE); LEUKOCYTE ESTERASE URINE TRACE (NEGATIVE); NITRITE URINE NEGATIVE (NEGATIVE); OCCULT BLOOD URINE NEGATIVE (NEGATIVE); PROTEIN URINE 1+ (NEGATIVE); SPECIFIC GRAVITY URINE 1.016 (1.005-1.030); UROBILINOGEN URINE 0.2 E.U./dL (0.2-1.0)
[2024-05-25 22:51] LABS: WBC URINE 0-2 /hpf (0-2)
[2024-05-25 22:52] LABS: BACTERIA URINE 1+; RBC URINE NONE SEEN /hpf (0-2); SQUAMOUS EPITHELIAL CELL URINE 1+ /lpf (RARE/1+)
[2024-05-26] VITALS (10 sets, daily range): BP systolic 108–125; BP diastolic 64–81; PULSE 81–93; RESP 12–22; TEMP 36.50292–37.11408; O2SAT 94–99
[2024-05-26] MEDS: VANCOMYCIN 750 MG in DEXT 5% WATER 100 ML IV SCH (00:37)
[2024-05-26 06:44] LABS: BASOPHILS % 0.2 % (0.0-2.0); EOSINOPHILS % 0.4 % (0.0-5.0); HEMATOCRIT. 23.3 % (42.0-52.0); HEMOGLOBIN. 7.3 g/dL (14.0-18.0); MEAN CORPUSCULAR HEMOGLOBIN 28.6 pg (28.0-32.0); MEAN CORPUSCULAR HGB CONC 31.4 g/dL (31.0-37.0); MEAN CORPUSCULAR VOLUME 91.2 fL (80.0-94.0); MEAN PLATELET VOLUME 8.3 fl (7.4-10.4); MONOCYTES % 6.8 % (2.0-8.0); NEUTROPHILS % 81.6 % (40.0-76.0); PLATELET 281 x1000/uL (130-400); RED BLOOD CELL COUNT 2.55 mill/uL (4.7-6.1); RED CELL DISTRIBUTION WIDTH 13.6 % (11.6-14.6); WHITE BLOOD COUNT 12.6 x1000/uL (4.5-11.0)
[2024-05-26 06:50] LABS: CALCIUM 8.1 mg/dL (8.7-10.4); CARBON DIOXIDE 25 mEq/L (21-32); CHLORIDE 115 mEq/L (98-107); POTASSIUM 3.3 mEq/L (3.5-5.1); SODIUM 145 mEq/L (136-145)
[2024-05-26 06:55] LABS: CREATININE 0.8 mg/dL (0.6-1.3); GLUCOSE 87 mg/dL (70-105)
[2024-05-26 06:56] LABS: TROPONIN I HIGH SENSITIVITY 16 ng/L (3.0-53); UREA NITROGEN BLOOD 13 mg/dL (9-23)
[2024-05-26 06:58] LABS: PHOSPHORUS 1.3 mg/dL (2.5-4.9)
[2024-05-26 07:01] LABS: T4 FREE 0.95 ng/dL (0.89-1.76)
[2024-05-26] MEDS ORDERED: MEDICATION NOT ON FORMULARY EA (Ferrous Sulfate 325 MG) PO SCH (09:00)
[2024-05-26] MEDS: GABAPENTIN 300MG CAPSULE PO SCH (14:52)
[2024-05-26] MEDS: FERROUS SULFATE 325MG TABLET PO SCH (14:52)
[2024-05-26] MEDS: CYANOCOBALAMIN 1000MCG TABLET PO SCH (14:52)
[2024-05-26] MEDS: KCL 20MEQ/100ML PREMIX 100 ML IV SCH (14:53)
[2024-05-26] MEDS: CEFEPIME 2GM/100ML 100 ML IV SCH (15:00)
[2024-05-26] MEDS ORDERED: ZONI100C45 PO (16:23)
[2024-05-26] MEDS ORDERED: ARIP15TA66 PO (16:24)
[2024-05-26] MEDS: METRONIDAZOLE 500 MG PREMIX 100 ML IV SCH (18:58)
[2024-05-26] MEDS ORDERED: ACETAMINOPHEN 650MG/20.3ML UDC GT PRN (19:15)
[2024-05-26] MEDS ORDERED: CLOB20TA4 PO (19:30)
[2024-05-26] MEDS ORDERED: CLOB10TA4 PO (19:30)
[2024-05-26] MEDS ORDERED: BRIV100T GT ×2 (19:31)
[2024-05-26] MEDS: VANCOMYCIN 1GM PMX (XELLIA) 200 ML IV SCH (20:42)
[2024-05-27] VITALS (18 sets, daily range): BP systolic 107–144; BP diastolic 61–77; PULSE 70–88; RESP 18–23; TEMP 36.6696–37.16964; O2SAT 95–99
[2024-05-27 06:48] LABS: CHLORIDE 114 mEq/L (98-107); POTASSIUM 3.6 mEq/L (3.5-5.1); SODIUM 143 mEq/L (136-145)
[2024-05-27 06:49] LABS: CALCIUM 8.3 mg/dL (8.7-10.4); CARBON DIOXIDE 24 mEq/L (21-32); EOSINOPHILS % 2.6 % (0.0-5.0); HEMATOCRIT. 25.1 % (42.0-52.0); HEMOGLOBIN. 7.9 g/dL (14.0-18.0); LYMPHOCYTES % 18.1 % (20.0-50.0); MEAN CORPUSCULAR HEMOGLOBIN 27.5 pg (28.0-32.0); MEAN CORPUSCULAR HGB CONC 31.7 g/dL (31.0-37.0); MEAN PLATELET VOLUME 8.5 fl (7.4-10.4); MONOCYTES % 8.6 % (2.0-8.0); NEUTROPHILS % 69.7 % (40.0-76.0); PLATELET 267 x1000/uL (130-400); RED BLOOD CELL COUNT 2.88 mill/uL (4.7-6.1); RED CELL DISTRIBUTION WIDTH 13.4 % (11.6-14.6); WHITE BLOOD COUNT 5.8 x1000/uL (4.5-11.0)
[2024-05-27 06:54] LABS: CREATININE 0.8 mg/dL (0.6-1.3); GLUCOSE 108 mg/dL (70-105); UREA NITROGEN BLOOD 9 mg/dL (9-23)
[2024-05-27] MEDS: FERROUS SULFATE 300MG/5ML UDC GT SCH (09:17)
[2024-05-27] MEDS ORDERED: LIDOCAINE HCL 1% 10 MG/ML 10ML VIAL ONE (09:36)
[2024-05-27] MEDS: BRIVIACT 100 MG GT SCH (12:07)
[2024-05-27] MEDS: CLOBAZAM 10MG TAB GT SCH (12:07)
[2024-05-27] MEDS: GABAPENTIN SOLN 300MG/6ML UDC GT SCH (12:15)
[2024-05-27] MEDS: ZONISAMIDE 100MG CAPSULE GT SCH (12:16)
[2024-05-28] VITALS (12 sets, daily range): BP systolic 112–152; BP diastolic 59–78; PULSE 71–84; RESP 12–21; TEMP 36.55848–36.9474; O2SAT 95–100
[2024-05-28 06:14] LABS: CALCIUM 8.5 mg/dL (8.7-10.4); CHLORIDE 110 mEq/L (98-107); POTASSIUM 3.4 mEq/L (3.5-5.1); SODIUM 143 mEq/L (136-145)
[2024-05-28 06:15] LABS: CARBON DIOXIDE 26 mEq/L (21-32)
[2024-05-28 06:19] LABS: BASOPHILS % 1.1 % (0.0-2.0); HEMATOCRIT. 28.5 % (42.0-52.0); LYMPHOCYTES % 25.5 % (20.0-50.0); MEAN CORPUSCULAR HEMOGLOBIN 27.4 pg (28.0-32.0); MEAN CORPUSCULAR HGB CONC 31.5 g/dL (31.0-37.0); MEAN CORPUSCULAR VOLUME 86.8 fL (80.0-94.0); MEAN PLATELET VOLUME 8.4 fl (7.4-10.4); MONOCYTES % 11.4 % (2.0-8.0); PLATELET 266 x1000/uL (130-400); RED BLOOD CELL COUNT 3.29 mill/uL (4.7-6.1); RED CELL DISTRIBUTION WIDTH 13.9 % (11.6-14.6); WHITE BLOOD COUNT 4.4 x1000/uL (4.5-11.0)
[2024-05-28 06:20] LABS: CREATININE 0.7 mg/dL (0.6-1.3); GLUCOSE 90 mg/dL (70-105); UREA NITROGEN BLOOD 5 mg/dL (9-23)
[2024-05-28] MEDS: VANCOMYCIN 1GM PMX (XELLIA) 200 ML IV SCH (10:26)
[2024-05-28] MEDS: KCL 20MEQ/100ML PREMIX 100 ML IV SCH (10:26)
[2024-05-28] MEDS: SODIUM HYPOCHLORITE 0.125% 473ML SOLUTION TOP SCH (10:59)
[2024-05-28] MEDS: POTASSIUM PHOSPHATE 20 MMOL in DEXT 5% WATER 243.3333 ML IV NR (11:01)
[2024-05-28] MEDS ORDERED: CALC-38 GT (14:26)
[2024-05-28] MEDS ORDERED: POTA20TA30 GT (14:28)
[2024-05-28] MEDS ORDERED: FERR220S9 GT (14:29)
[2024-05-28] MEDS ORDERED: PROT40 GT (14:30)
[2024-05-28] MEDS ORDERED: BACL-141 GT (14:31)
[2024-05-28] MEDS ORDERED: VITA100T GT (14:32)
[2024-05-28] MEDS ORDERED: LACT1CAP56 GT (14:32)
[2024-05-28] MEDS ORDERED: DOCU50LI25 GT (14:33)
[2024-05-28] MEDS ORDERED: FLUT16SP15 BOTHNSTRLS (14:34)
[2024-05-28] MEDS ORDERED: FISH1CAP63 GT (14:35)
== END 2024-05-28 18:00 | disposition home or self-care (01) | DRG 871 ==
LOC: ER 13:28 → EDBEDREQ 13:44 → MICUSO 14:04 → EDBEDREQ 14:05 → 5EST 05-26 09:35
PROVIDERS: ADMIT Internal Medicine; ATTEND Internal Medicine
PROC: 05HY33Z Insertion of Infusion Device into Upper Vein, Percutaneous Approach (ICD-10-PCS; principal; 2024-05-27)
PROC: B54MZZA Ultrasonography of Right Upper Extremity Veins, Guidance (ICD-10-PCS; 2024-05-27)
PROC: 4A00X4Z Measurement of Central Nervous Electrical Activity, External Approach (ICD-10-PCS; 2024-05-27)
PROC: 5A09357 Assistance with Respiratory Ventilation, Less than 24 Consecutive Hours, Continuous Positive Airway Pressure (ICD-10-PCS; 2024-05-27)
DX: A41.9 Sepsis, unspecified organism (principal); J96.21 Acute and chronic respiratory failure with hypoxia; L89.154 Pressure ulcer of sacral region, stage 4; N17.0 Acute kidney failure with tubular necrosis; E87.20 Acidosis, unspecified; G40.833 Dravet syndrome, intractable, with status epilepticus; Z66 Do not resuscitate; E83.39 Other disorders of phosphorus metabolism; E87.6 Hypokalemia; R65.20 Severe sepsis without septic shock; D64.9 Anemia, unspecified; Z74.01 Bed confinement status; Z87.440 Personal history of urinary (tract) infections; Z88.8 Allergy status to other drugs, medicaments and biological substances; Z88.0 Allergy status to penicillin; Z79.899 Other long term (current) drug therapy; Z93.0 Tracheostomy status; Z93.1 Gastrostomy status
CPT/HCPCS: 36415; 36573; 71045; 80048; 80076; 80202; 81003; 82962; 83605; 83735; 84100; 84145; 84439; 84443; 84484; 85025; 85044; 87070; 87077; 87186; 93005; 94640; 94660; 95816; 99291; A6261; C1725; J0692; J2060; J3370; J3480; J3490; J7030; J7060; J7131